=== PATIENT | female | born 1955 | race Hispanic/Latino ===

== ENCOUNTER 2018-03-05 15:10 | Observation (INO) | payer OTHER ==
[~2018-03-05] VITALS: Ht 167.6 cm; Wt 87.1 kg
[2018-03-05] MEDS ORDERED: ACETAMINOPHEN 325 MG TAB PO PRN (17:30)
[2018-03-05] MEDS ORDERED: NITROGLYCERIN 0.4 MG SUBL SL PRN (17:30)
[2018-03-05 17:38] VITALS: BP 140/64
[2018-03-05] MEDS ORDERED: CLOPIDOGREL BISULFATE 75 MG TAB PO ONE (18:00)
[2018-03-05 18:05] VITALS: BP 140/64
[2018-03-05 18:11] LABS: BASOPHILS % 0.4 % (0.0-1.0); EOSINOPHILS # (AUTO) 0.2 (0.0-0.4); EOSINOPHILS % 2.4 % (0.0-6.0); HEMATOCRIT 41.3 % (34.2-44.1); HEMOGLOBIN 14.1 g/dL (12.0-16.0); LYMPHOCYTES # (AUTO) 3.8 (1.0-3.2); LYMPHOCYTES % 39.5 % (18.0-39.1); MEAN CORPUSCULAR HEMOGLOBIN 30.9 pg (28-32); MEAN CORPUSCULAR HGB CONC 34.1 g/dL (31-35); MEAN CORPUSCULAR VOLUME 90.4 fL (81-99); MONOCYTES # (AUTO) 0.7 (0.2-0.8); MONOCYTES % 7.4 % (4.4-11.3); NEUTROPHILS # (AUTO) 4.8 (2.1-6.9); NEUTROPHILS % 50.1 % (38.7-80.0); PLATELET COUNT 205 x10e3/uL (140-360); RED BLOOD COUNT 4.57 x10e6/uL (3.6-5.1); RED CELL DISTRIBUTION WIDTH 13.4 % (11.7-14.4)
[2018-03-05 18:48] LABS: CREATINE KINASE MB 1.6 ng/mL (0-5.0)
--- NOTE | 2018-03-05 18:55 | Diagnostic Imaging Report ---
EXAMINATION: CHEST 2 VIEWS INDICATION: \S\chest pain \[id number] \S\1830 \S\N COMPARISON: None FINDINGS: PA and lateral views TUBES and LINES: None. LUNGS: Lungs are well inflated. Lungs are clear. There is no evidence of pneumonia or pulmonary edema. PLEURA: No pleural effusion or pneumothorax. HEART AND MEDIASTINUM: The cardiomediastinal silhouette is unremarkable. BONES AND SOFT TISSUES: No acute osseous lesion. Soft tissues are unremarkable. UPPER ABDOMEN: No free air under the diaphragm. IMPRESSION: No acute thoracic abnormality. Signed by: Dr. Marjorie Gonzalez M.D. on 03/05/2018 6:52 PM
[2018-03-05 19:00] VITALS: BP 140/64
[2018-03-05 19:03] LABS: ALANINE AMINOTRANSFERASE 84 IU/L (0-55); ALBUMIN 3.5 g/dL (3.5-5.0); ALBUMIN/GLOBULIN RATIO 0.8 (0.8-2.0); ALKALINE PHOSPHATASE 128 IU/L (40-150); ANION GAP 14.1 mmol/L (8-16); BLOOD UREA NITROGEN 18 mg/dL (7-26); BUN/CREATININE RATIO 22 (6-25); CALCIUM 9.5 mg/dL (8.4-10.2); CARBON DIOXIDE 27 mmol/L (22-29); CHLORIDE 104 mmol/L (98-107); CHOL/HDL RATIO 3.6 (3.0-3.6); CHOLESTEROL 195 MD/DL (0-199); CREATININE, SERUM 0.82 mg/dL (0.57-1.11); EST GLOMERULAR FILTRATION RATE > 60 ML/MIN (60-); GLUCOSE 111 mg/dL (74-118); HDL CHOLESTEROL 54 MG/DL (40-60); LDL CHOLESTEROL 107 MG/DL (60-130); POTASSIUM 4.1 mmol/L (3.5-5.1); SODIUM 141 mmol/L (136-145); TRIGLYCERIDES 170 MG/DL (0-149)
[2018-03-05] MEDS ORDERED: LORAZEPAM 0.5 MG TAB PO PRN (19:30)
[2018-03-05] MEDS ORDERED: LORAZEPAM 1 MG TAB PO PRN (19:45)
--- NOTE | 2018-03-05 20:25 | Consultation ---
DATE OF CONSULTATION: March 05, 2018 CARDIAC CONSULTATION REASON FOR CONSULTATION: Unstable coronary syndrome, possible recent myocardial infarction. HISTORY: This is a 62-year-old lady who was in her usual status of health; but for the last 2 months, she is having typical exertional angina, progressively worse. Her activities are limited. Ten days ago, she had severe episodes of severe chest pain radiating to her back, to her shoulder, to her jaw. She took some medication, but she did not seek medical advice. She did well for a couple of days and then 7 days ago she had another severe chest pain. Regardless, today she had more pain and she came to Dr. Garcia's office, seen in his office. Her EKG showed anteroseptal myocardial infarction and ischemic lateral T-wave changes. She was admitted to the hospital. Urgent cardiac consultation is obtained. Patient was seen and evaluated in the hospital around 6 p.m. Her time of admission was just recently. Her labs still not ready. Her EKG from Dr. Garcia's office is noted. Now she is pain free. She describes this pain which is progressively worse, has been coming at rest and becoming more frequent. REVIEW OF SYSTEMS GENERAL: No fever. No chills. PULMONARY: No cough. No hemoptysis. CARDIAC: As per acute illness. GI: No hematemesis. No melena. : No hematuria. No dysuria. NEUROMUSCULAR: No headaches. No seizures. SOCIAL HISTORY: Patient is . 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 She is nonsmoker, non-alcohol drinker. PAST MEDICAL HISTORY 1. Hysterectomy. 2. Cholecystectomy. 3. Bladder suspension surgery. 4. Occasional heartburn. FAMILY HISTORY: Father at age 74 with lung cancer. Mother doing well in her 80s. Six siblings, 2 brothers and 4 sisters. She lost her brother to acute myocardial infarction at age 40. Her son is healthy at 36. Three grandchildren. PHYSICAL EXAMINATION GENERAL: A well built lady, in no acute distress. VITALS: Blood pressure 120/80, pulses were equal in all arm, heart rate of 70, respiratory rate of 18. HEENT: Pupils are equal, reactive. NECK: No elevation of jugular venous pulsation. No bruit. CHEST: Clear to auscultation and percussion. HEART: PMI 5th left intercostal space. Normal 1st and 2nd heart sounds. ABDOMEN: Soft with good bowel sounds. No organomegaly. No abdominal bruits. EXTREMITIES: No cyanosis. No clubbing. No edema. No delay between pulses. No signs of deep venous thrombosis. Other findings are varicose veins. LABORATORY DATA: Only available is her EKG from Dr. Garcia's office showing normal sinus rhythm, anteroseptal myocardial infarction, and lateral ST-T changes. HOME MEDICATIONS: None. ALLERGIES: NONE. IMPRESSION AND PLAN 1. Unstable coronary syndrome, possible recent myocardial infarction with post myocardial infarction angina. 2. Abnormal electrocardiogram. 3. History of hypercholesterolemia, questionable details. 4. Positive family history of coronary artery disease with brother dying at age 40 with myocardial infarction. 5. Varicose vein with no signs of deep venous thrombosis, symptomatic. Patient by standing upon her feet, she will have quite a lot of swelling and pain and aches, etc. We discussed option of cardiac workup. Patient will be loaded with Plavix. We discussed option between nuclear stress test and cardiac catheterization. Of course, nuclear stress test will be done only if her cardiac enzymes came back normal. 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 She wants to proceed with a definite answer because of her symptoms which is unusual and she seek medical advice and she believes she wants to be 100% sure she does not have significant severe CAD. Would respect that. Will schedule patient for cardiac catheterization. Questions all answered. Job#: [id number]
[2018-03-05 20:30] VITALS: BP 168/82
[2018-03-05] MEDS: SODIUM CHLORIDE 0.9% 1000ML 1,000 ML IV SCH (20:58)
[2018-03-05] MEDS ORDERED: ATORVASTATIN 20 MG TAB PO SCH (21:00)
[2018-03-05] MEDS ORDERED: METOPROLOL SUCCINATE 25 MG TAB XL PO SCH (21:00)
[2018-03-06] VITALS: BP 147/63
[2018-03-06 05:05] VITALS: BP 131/72
[2018-03-06 05:11] LABS: BASOPHILS % 0.4 % (0.0-1.0); EOSINOPHILS # (AUTO) 0.2 (0.0-0.4); EOSINOPHILS % 2.4 % (0.0-6.0); HEMATOCRIT 38.5 % (34.2-44.1); LYMPHOCYTES # (AUTO) 2.6 (1.0-3.2); LYMPHOCYTES % 35.8 % (18.0-39.1); MEAN CORPUSCULAR HEMOGLOBIN 30.5 pg (28-32); MEAN CORPUSCULAR HGB CONC 33.8 g/dL (31-35); MEAN CORPUSCULAR VOLUME 90.4 fL (81-99); MONOCYTES # (AUTO) 0.5 (0.2-0.8); MONOCYTES % 7.5 % (4.4-11.3); NEUTROPHILS # (AUTO) 3.9 (2.1-6.9); NEUTROPHILS % 53.8 % (38.7-80.0); PLATELET COUNT 182 x10e3/uL (140-360); RED BLOOD COUNT 4.26 x10e6/uL (3.6-5.1); RED CELL DISTRIBUTION WIDTH 13.3 % (11.7-14.4)
[2018-03-06 05:21] LABS: INR 1.17
[2018-03-06 05:22] LABS: PARTIAL THROMBOPLASTIN TIME 27.9 seconds (23.8-35.5)
[2018-03-06 05:29] LABS: ALANINE AMINOTRANSFERASE 71 IU/L (0-55); ALBUMIN 3.2 g/dL (3.5-5.0); ALBUMIN/GLOBULIN RATIO 0.8 (0.8-2.0); ALKALINE PHOSPHATASE 117 IU/L (40-150); ANION GAP 12.1 mmol/L (8-16); BLOOD UREA NITROGEN 20 mg/dL (7-26); BUN/CREATININE RATIO 30 (6-25); CALCIUM 8.7 mg/dL (8.4-10.2); CARBON DIOXIDE 23 mmol/L (22-29); CHLORIDE 110 mmol/L (98-107); CREATININE, SERUM 0.67 mg/dL (0.57-1.11); EST GLOMERULAR FILTRATION RATE > 60 ML/MIN (60-); GLUCOSE 111 mg/dL (74-118); POTASSIUM 4.1 mmol/L (3.5-5.1); SODIUM 141 mmol/L (136-145)
[2018-03-06 05:59] LABS: CREATINE KINASE MB 1.7 ng/mL (0-5.0)
[2018-03-06] MEDS ORDERED: HEPARIN SOD/SOD CHLORIDE 2,000 ML ONE (06:40)
[2018-03-06] MEDS ORDERED: SODIUM CHLORIDE 0.9% 1000ML 1,000 ML ONE (06:40)
[2018-03-06] MEDS ORDERED: MIDAZOLAM HCL 2 MG/2 ML VIAL ONE (06:40)
[2018-03-06] MEDS ORDERED: LIDOCAINE HCL 2% LOCAL 20 ML VIAL ONE (06:40)
[2018-03-06] MEDS ORDERED: IOPAMIDOL 370 MG/ML 200 ML INFUS..BTL INJ ONE (06:40)
[2018-03-06] MEDS ORDERED: FENTANYL CITRATE/PF 100MCG/2 ML INJ ONE (06:40)
[2018-03-06 07:05] VITALS: BP 131/72
[2018-03-06] MEDS ORDERED: HEPARIN SOD (PORCINE) 1000 UNIT/ML 30ML ONE (07:44)
[2018-03-06] MEDS ORDERED: NITROGLYCERIN/D5W 200 MCG/ML 0 ML ONE (07:45)
[2018-03-06 07:49] VITALS: BP 135/80
[2018-03-06] MEDS ORDERED: METOPROLOL SUCCINATE 25 MG TAB XL PO SCH (09:00)
[2018-03-06] MEDS ORDERED: ASPIRIN 81 MG CHEW TAB PO SCH (09:00)
--- NOTE | 2018-03-06 09:05 | Operative Report ---
DATE OF PROCEDURE: March 06, 2018 TITLE OF PROCEDURE: Left cardiac catheterization. INDICATIONS: Unstable coronary syndrome. Continuous chest pain and severe shortness of breath of recent duration for the last 2 months with several episodes of severe pain. TECHNICAL DETAILS: After the usual sterile preparation and draping procedure, intravenous Versed and fentanyl given for sedation and local Xylocaine for anesthesia, a 4-Icelandic sheath was established in place. Abiodun left 4 and 3DRC catheters to engage the coronary. Pigtail for hemodynamic measurement. At the end of the procedure, the sheath was removed. Hemostasis achieved manually. No complication and no blood loss. RESULTS A. Coronary angiogram. 1. Left main: Free of disease. 2. LAD: Torturous artery. At mid LAD, the artery is dipping in the muscle, and there is muscle bridge with 50% to 60% stenosis with systole. 3. Circumflex coronary artery: Relatively small artery. 4. 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 B. Hemodynamics: The LV pressure with the catheter at the apex is 167/40. In the LV outflow, it is 150/26. Aorta pressure 150/80. IMPRESSION 1. 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 2. Severe apical hypertrophy with gradient of approximately 12 to 15 mmHg. 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 RECOMMENDATIONS: Aggressive medical therapy with beta joseph as the patient tolerates in addition to aspirin. COMPLICATIONS: None. BLOOD LOSS: None. Job#: [id number]
[2018-03-06 12:33] VITALS: BP 171/86
[2018-03-06] MEDS: SODIUM CHLORIDE 0.9% 1000ML 1,000 ML IV SCH (13:49)
[2018-03-06 15:30] LABS: CREATINE KINASE MB 1.8 ng/mL (0-5.0)
[2018-03-06 15:55] VITALS: BP 153/80
[2018-03-06] MEDS ORDERED: ASPIR 8181 MG (18:33)
[2018-03-06] MEDS ORDERED: NORVASC5 MG PO (18:33)
[2018-03-06] MEDS ORDERED: METOPROLOL SUCC50 MG PO (18:34)
== END 2018-03-06 18:56 | disposition home or self-care (01) ==
LOC: IMCU 17:00
PROVIDERS: ADMIT Internal Medicine; ATTEND Internal Medicine
DX: I25.110 Atherosclerotic heart disease of native coronary artery with unstable angina pectoris (principal); Q24.5 Malformation of coronary vessels; I34.0 Nonrheumatic mitral (valve) insufficiency; E78.00 Pure hypercholesterolemia, unspecified; I83.90 Asymptomatic varicose veins of unspecified lower extremity; Z82.49 Family history of ischemic heart disease and other diseases of the circulatory system; Z80.1 Family history of malignant neoplasm of trachea, bronchus and lung
CPT/HCPCS: 36415 ×2; 71046; 80053 ×2; 80061; 82550 ×2; 82553 ×2; 84484 ×2; 85025 ×2; 85610; 85730; 93005; 93306; 93458; 93925; 96360; C1766; G0378 ×2; J2001; J2250; J7030 ×2; Q9967; J1644

== ENCOUNTER → 2018-04-09 | Outpatient (CLI) | payer OTHER ==
[~2018-04-09] MED LIST: ASPIR 8181 MG; METOPROLOL SUCC50 MG PO; NORVASC5 MG PO
--- NOTE | 2018-04-26 23:56 | Polysomnography ---
DATE OF STUDY: April 09, 2018 DIAGNOSTIC POLYSOMNOGRAM - TYPE 3 PORTABLE SLEEP MONITOR, HOME SLEEP TEST REFERRING PHYSICIAN: Dr. Bradley Garcia HISTORY: This is a 62-year-old female with excessive sleepiness, snoring, and insomnia. Patient has a past medical history of thyroid disorder, hypertension, mild coronary artery disease. CURRENT MEDICATIONS: Metoprolol, levothyroxine, amlodipine, aspirin. Patient with body mass index of 31.6. Kake Sleepiness Scale score is 17. Patient presents for a diagnostic polysomnogram, type 3 home sleep test. FINDINGS: Polysomnogram revealed total sleep time of 540.5 minutes with sleep efficiency of 95%. A total of 3 obstructive apneas, 16 hypopneas were noted for an apnea-hypopnea index of 2.1 events per hour of sleep. The lowest oxygen saturation was 86% on this night. Single-lead EKG analysis demonstrated sinus rhythm, but was otherwise unremarkable. INTERPRETATION: This was an abnormal polysomnogram due to the presence of: 1. Snoring. Multiple factors such as obesity, thyroid disease, and structural/obstructive abnormalities in the upper airway can be contributory. An evaluation and management of these factors may be helpful. Based on this study, the patient does not require CPAP therapy. An ENT examination may be helpful if snoring persists and creates significant lifestyle difficulties to the patient or significant other. 2. Subjective sleepiness. The patient retained an Kake Sleepiness Scale score of 17, which suggests significant sleepiness. However, this home sleep test did not reveal any significant apnea nor hypopnea. Sleep deprivation or inadequate sleep can also lead to hypersomnolence. Sleep hygiene should be optimized. If there is ongoing concern regarding a hypersomnia such as narcolepsy, then a overnight in-lab sleep study, followed by multiple sleep latency testing may be helpful. Clinical correlation is recommended. MD JR Juan Certified in Sleep Medicine Job#: [id number] DR NG
== END ==
LOC: SLEEP 19:56
PROVIDERS: ATTEND Internal Medicine
DX: G47.30 Sleep apnea, unspecified (principal)
CPT/HCPCS: 95806

== ENCOUNTER 2019-11-19 14:42 | Emergency (ER) | payer OTHER ==
[~2019-11-19] VITALS: Ht 167.6 cm; Wt 87.1 kg
--- OUTSIDE RECORDS SUMMARY | 2019-11-19 14:45 | XMS REPORT | Clinical Summary ---
Author Author [facility] Address Unknown Phone Unavailable Care Team Providers Care Director Ambulatory Name Role Phone Bradley Garcia MD PCP [phone] Allergies Not on File Medications Not on file Active Problems Not on file Social History Date Tobacco Use Types Packs/Day Years Used Never Assessed Sex Assigned at Date Recorded Not on file Industry Job Start Date Occupation Not on file Not on file Not on file Travel End Travel History Travel Start No recent travel history available. 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
--- OUTSIDE RECORDS SUMMARY | 2019-11-19 14:46 | XMS REPORT ---
Author Author [facility] t Organization [facility] Address [address] [place] [address] Phone Unavailable Care Team Providers Care Gold Leaf Printer Name Role Phone RAJ MENDEZ MD PCP RAJ MENDEZ Attjovanni Unavailable RAJ MENDEZ Admjovanni Unavailable Problems This patient has no known problems. Allergies, Adverse Reactions, Alerts This patient has no known allergies or adverse reactions. Social History Social Habit Start Date Stop Date Quantity Comments Source Sex Assigned At [place] Medications Ordered Medication Name Filled Medication Name Start Date Stop Da te Current Medication? Ordering Clinician Indication Dosage Frequency Signature (SIG) Comments Components Source Amlodipine Besylate (Norvasc) 5 Mg Tab Amlodipine Besylate (Norv asc) 5 Mg Tab Yes 5 Daily [facility] Aspirin (Aspir 81) 81 Mg Tablet. Aspirin (Aspir 81) 81 Mg Tablet.dr Tracy [facility] Metoprolol Succinate 50 Mg Tab.er.24h Metoprolol Succinate 50 Mg Ta b.er.24h Yes 50 Daily [facility] Procedures Procedure Date / Time Performed Performing Clinician Formerly [facility] e X-ray of chest, two views 2018-03-05 00:00:00 RAJ MENDEZ CH I [facility] Plan of Care Planned Activity Planned Date Details Comments Source Future Scheduled Test 2020-01-22 00:00:00 INFLUENZA VACCINE [code = INFLUENZA VACCINE] [facility] Scheduled Test 2006 00:00:00 BREAST CANCER SCRE ENING [code = BREAST CANCER SCREENING] [facility] Scheduled Test 2006 00:00:00 COLONOSCOPY SCREEN ING [code = COLONOSCOPY SCREENING] [facility] Scheduled Test 2006 00:00:00 SHINGLES VACCINES (#1) [code = SHINGLES VACCINES (#1)] Johny Wu Scheduled Test 1977 00:00:00 Screening for catarina gnant neoplasm of cervix (procedure) [code = 125743197] Johny rivas Encounters Start Date/Time End Date/Time Encounter Type Admission Type [facility] Care Department Encounter ID Source 2018-03-05 17:00:00 2018-03-06 18:56:00 Discharged Inpatient (obs) 3 RAJ MENDEZ [facility] [id number] [facility] Results Test Description Test Time Test Comments Results Result Comments Source Creatine Kinase MB 2018-03-06 15:32:00 Test Item Creatine Kinase MB (test code = 71731-8) 1.80 0-5.0 [facility] CenterTroponin [id number] 15:32:00* Test Item Value Reference Range Interpretation Comments Troponin I (test code = GDC2601) 0.011 0-0.300 [facility] CenterCreatine Mnervi1600-39-27 15:29:00* Test Item Value Reference Range Interpretation Comments Creatine Kinase (test code = 2157-6) 52 29-168 [facility] CenterWhite Blood Ddkii0872-21-57 06:17:00* Test Item Value Reference Range Interpretation Comments White Blood Count (test code = 6690-2) 7.21 4.8-10.8 [facility] CenterRed Blood Aijeo9454-39-54 06:17:00* Test Item Value Reference Range Interpretation Comments Red Blood Count (test code = 789-8) 4.26 3.6-5.1 [facility] CenterHemoglobin2018-09-14 06:17:00* Test Item Value Reference Range Interpretation Comments Hemoglobin (test code = 13178-2) 13.0 12.0-16.0 [facility] CenterHematocrit2018-09-14 06:17:00* Test Item Value Reference Range Interpretation Comments Hematocrit (test code = 4544-3) 38.5 34.2-44.1 [facility] CenterMean Corpuscular Tkqxba2409-67-57 06:17:00* Test Item Value Reference Range Interpretation Comments Mean Corpuscular Volume (test code = 787-2) 90.4 81-99 [facility] CenterMean Corpuscular Pvolxvdxza1425-77-33 06:17:00* Test Item Value Reference Range Interpretation Comments Mean Corpuscular Hemoglobin (test code = 785-6) 30.5 28-32 [facility] CenterMean Corpuscular Hemoglobin Concent 2018-03-06 06:17:00* Test Item Value Reference Range Interpretation Comments Mean Corpuscular Hemoglobin Concent (test code = 786-4) 33.8 31-35 [facility] CenterRed Cell Distribution Zglex5267-35-57 06:17:00* Test Item Value Reference Range Interpretation Comments Red Cell Distribution Width (test code = 44714-3) 13.3 11.7 -14.4 [facility] CenterPlatelet Omjff5735-14-92 06:17:00* Test Item Value Reference Range Interpretation Comments Platelet Count (test code = 777-3) 182 140-360 [facility] CenterNeutrophils (%) (Auto)2018-03-06 06:17:00 * Test Item Value Reference Range Interpretation Comments Neutrophils (%) (Auto) (test code = 70599-5) 53.8 38.7-80.0 [facility] CenterLymphocytes (%) (Auto)2018-03-06 06:17:00 * Test Item Value Reference Range Interpretation Comments Lymphocytes (%) (Auto) (test code = 736-9) 35.8 18.0-39.1 [facility] CenterMonocytes (%) (Auto)2018-03-06 06:17:00* Test Item Value Reference Range Interpretation Comments Monocytes (%) (Auto) (test code = 5905-5) 7.5 4.4-11.3 [facility] CenterEosinophils (%) (Auto)2018-03-06 06:17:00 * Test Item Value Reference Range Interpretation Comments Eosinophils (%) (Auto) (test code = 713-8) 2.4 0.0-6.0 [facility] CenterBasophils (%) (Auto)2018-03-06 06:17:00* Test Item Value Reference Range Interpretation Comments Basophils (%) (Auto) (test code = 706-2) 0.4 0.0-1.0 [facility] CenterIM GRANULOCYTES %2018-03-06 06:17:00* Test Item Value Reference Range Interpretation Comments IM GRANULOCYTES % (test code = IM GRANULOCYTES %) 0.1 0.0- 1.0 [facility] CenterNeutrophils # (Auto)2018-03-06 06:17:00* Test Item Value Reference Range Interpretation Comments Neutrophils # (Auto) (test code = 751-8) 3.9 2.1-6.9 [facility] CenterLymphocytes # (Auto)2018-03-06 06:17:00* Test Item Value Reference Range Interpretation Comments Lymphocytes # (Auto) (test code = 00346-0) 2.6 1.0-3.2 [facility] CenterMonocytes # (Auto)2018-03-06 06:17:00* Test Item Value Reference Range Interpretation Comments Monocytes # (Auto) (test code = 742-7) 0.5 0.2-0.8 [facility] CenterEosinophils # (Auto)2018-03-06 06:17:00* Test Item Value Reference Range Interpretation Comments Eosinophils # (Auto) (test code = 711-2) 0.2 0.0-0.4 [facility] CenterBasophils # (Auto)2018-03-06 06:17:00* Test Item Value Reference Range Interpretation Comments Basophils # (Auto) (test code = 704-7) 0.0 0.0-0.1 [facility] CenterAbsolute Immature Granulocyte (auto 2018-03-06 06:17:00* Test Item Value Reference Range Interpretation Comments Absolute Immature Granulocyte (auto (sapna t code = Absolute Immature Granulocyte (auto) 0.01 0-0.1 [facility] CenterProthrombin Tfoc6261-39-74 05:57:00* Test Item Value Reference Range Interpretation Comments Prothrombin Time (test code = 5902-2) 14.0 11.9-14.5 [facility] CenterProthromb Time International Ratio 2018-03-06 05:57:00* Test Item Value Reference Range Interpretation Comments Prothromb Time International Ratio (test code = 6301-6) 1.17 Oral Anticoagulant Therapy INR Values:1. Low Intensity Therapy 1.5 - 2.02 . Moderate Intensity Therapy 2.0 - 3.03. High Intensity Therapy(1) 2.5 - 3. 54. High Intensity Therapy(2) 3.0 - 4.05. Panic Value INR > 5.0 [facility] CenterActivated Partial Thromboplast Time 2018-03-06 05:57:00* Test Item Value Reference Range Interpretation Comments Activated Partial Thromboplast Time (test code = 54816-4) 27.9 23.8-35.5 [facility]odium Voyco8562-15-93 05:39:00* Test Item Value Reference Range Interpretation Comments Sodium Level (test code = 2951-2) 141 136-145 [facility] CenterPotassium Yarvd9923-34-83 05:39:00* Test Item Value Reference Range Interpretation Comments Potassium Level (test code = 2823-3) 4.1 3.5-5.1 [facility] CenterChloride Fhicv1026-87-46 05:39:00* Test Item Value Reference Range Interpretation Comments Chloride Level (test code = 2075-0) 110 98-107 H [facility] CenterCarbon Dioxide Nqfaj2398-11-72 05:39:00* Test Item Value Reference Range Interpretation Comments Carbon Dioxide Level (test code = 2028-9) 23 22-29 [facility] CenterAnion Ihy7898-37-38 05:39:00* Test Item Value Reference Range Interpretation Comments Anion Gap (test code = 31205-7) 12.1 8-16 [facility] CenterBlood Urea Fjrolejw0727-53-52 05:39:00* Test Item Value Reference Range Interpretation Comments Blood Urea Nitrogen (test code = 3094-0) 20 7-26 [facility] CenterCreatinine2018-09-14 05:39:00* Test Item Value Reference Range Interpretation Comments Creatinine (test code = 2160-0) 0.67 0.57-1.11 [facility] CenterBUN/Creatinine Bxnzx5621-61-11 05:39:00* Test Item Value Reference Range Interpretation Comments BUN/Creatinine Ratio (test code = 3097-3) 30 6-25 H [facility] CenterEstimat Glomerular Filtration Rate 2018-03-06 05:39:00* Test Item Value Reference Range Interpretation Comments Estimat Glomerular Filtration Rate (test code = 43081-7) 60- >60 Ranges were taken from the National Kidney Disease Education Program and the [facility] Kid[employer] Foundation literature.Reference ranges:60 or greater: Tacpfx97-25 ( for 3 consecutive months): Chronic kidney disease 15 or less: Kidney failureThe Hospital at Westlake Medical CenterGlucose Wsqgx3552-43-04 05:39:00* Test Item Value Reference Range Interpretation Comments Glucose Level (test code = JVZ6478) 111 74-118 [facility] CenterCalcium Ycucp9551-92-20 05:39:00* Test Item Value Reference Range Interpretation Comments Calcium Level (test code = 00145-0) 8.7 8.4-10.2 [facility] CenterTotal Ykqijuyzu6092-21-63 05:39:00* Test Item Value Reference Range Interpretation Comments Total Bilirubin (test code = 1975-2) 0.3 0.2-1.2 [facility] CenterAspartate Amino Transf (AST/SGOT) 2018-03-06 05:39:00* Test Item Value Reference Range Interpretation Comments Aspartate Amino Transf (AST/SGOT) (test code = Aspartate Amino Transf (AST/SGOT)) 43 5-34 H [facility] CenterAlanine Aminotransferase (ALT/SGPT) 2018-03-06 05:39:00* Test Item Value Reference Range Interpretation Comments Alanine Aminotransferase (ALT/SGPT) (test code = 1742-6) 71 0-55 H [facility] CenterTotal Xzahycj6829-83-66 05:39:00* Test Item Value Reference Range Interpretation Comments Total Protein (test code = 2885-2) 7.0 6.5-8.1 [facility] CenterAlbumin2018-09-14 05:39:00* Test Item Value Reference Range Interpretation Comments Albumin (test code = 1751-7) 3.2 3.5-5.0 L [facility] CenterGlobulin2018-09-14 05:39:00* Test Item Value Reference Range Interpretation Comments Globulin (test code = 66548-1) 3.8 2.3-3.5 H [facility] CenterAlbumin/Globulin Ggqbe8686-81-04 05:39:00 * Test Item Value Reference Range Interpretation Comments Albumin/Globulin Ratio (test code = 1759-0) 0.8 0.8-2.0 [facility] CenterAlkaline Pisipdctzwf4908-07-55 05:39:00* Test Item Value Reference Range Interpretation Comments Alkaline Phosphatase (test code = 6768-6) 117 40-150 [facility] CenterTriglycerides Ingla9227-10-06 19:07:00* Test Item Value Reference Range Interpretation Comments Triglycerides Level (test code = 2571-8) 170 0-149 H [facility] CenterCholesterol Azhbu6409-47-06 19:07:00* Test Item Value Reference Range Interpretation Comments Cholesterol Level (test code = 2093-3) 195 0-199 Less than 200 mg/dL Low Bzey654 - 239 mg/dL Borderline Naya252 m g/dl and greater High Risk [facility] CenterLDL Kjagvcztvce7455-69-27 19:07:00* Test Item Value Reference Range Interpretation Comments LDL Cholesterol (test code = 2089-1) 107 60-130 [facility] CenterHDL Puftdeqddhz0545-93-89 19:07:00* Test Item Value Reference Range Interpretation Comments HDL Cholesterol (test code = 2085-9) 54 40-60 [facility] CenterCholesterol/HDL Mzpef2266-31-32 19:07:00 * Test Item Value Reference Range Interpretation Comments Cholesterol/HDL Ratio (test code = 9830-1) 3.6 3.0-3.6 [facility] CenterCHEST 2 DIXED5379-71-22 18:52:00 [facility] [address] [address] Patient Name: NEVAEH ARENAS MR #: [id number] : 0 1955 Age/Sex: 62/F Req #: [id number] Adm Physician: RAJ MENDEZ MD Ordered by: RAJ MENDEZ MD Report #: [id number] Locatio n: IMCU Room/Bed: [place] [address] Procedure: [id number] DX/ CHEST 2 VIEWS Exam Date: 03/05/18 Exam Time: 183 REPORT STATUS: Signed EXAMINATION: CHEST 2 VIEWS INDICATION: COMPARISON: None FINDINGS: PA and lateral views TUBES and LINES: None. LUNGS: Lungs are well inflated. Lungs are c lear. There is no evidence of pneumonia or pulmonary edema. PLEURA: No pleural effusion or pneumothorax. HEART AND MEDIASTINUM: The cardiomedias tinal silhouette is unremarkable. BONES AND SOFT TISSUES: No acute osseous lesion. Soft tissues are unremarkable. UPPER ABDOMEN: No free air under the diaphragm. IMPRESSION: No acute thoracic abnormality. Sign ed by: Dr. Katie Aragon M.D. on 03/05/2018 6:52 PM Dictated By : KATIE ARAGON MD 51 Transcribed By: HOWIE on 03/05/181851 COPY TO: RAJ CERNA MD
[2019-11-19] MEDS ORDERED: ONDANSETRON HCL INJ 2MG/ML 2ML 2 MG/ML VIAL IV STA (15:55)
[2019-11-19] MEDS ORDERED: PANTOPRAZOLE 40 MG 10ML VIAL IV STA (15:55)
[2019-11-19] MEDS ORDERED: SODIUM CHLORIDE 0.9% 1000ML 1,000 ML IV STA (15:55)
--- NOTE | 2019-11-19 16:07 | Emergency Department Note ---
History of Present Illnes History of Present Illness Chief Complaint: Abdominal Complaints History of Present Illness This is a 64 year old female HERE FOR LEFT SIDED ABDOMINAL PAIN AND N/V/D FOR THE LAST 3 DAYS. 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 Historian: Patient Arrival Mode: Car Onset (how long ago): day(s) (3) Location: LEFT SIDE Quality: PAIN Radiation: non-radiation Severity: moderate Onset quality: gradual Duration (how long): day(s) (3) Timing of current episode: intermittent (WORSE AFTER EATING OR DRINKING ANYTHING) Progression: waxing and waning Chronicity: new Context: recent illness Relieving factors: none Exacerbating factors: other (EATING OR DRINKING) Associated symptoms: denies other symptoms Treatments prior to arrival: none Previous service: other (CALLED PCP, DR MENDEZ WHO ADVISED TO COME TO ER) Past Medical/Family History Physician Review I have reviewed the patient's past medical and family history. Any updates have been documented here. Past Medical History Recent Fever: No Clinical Suspicion of Infectio: Yes New/Unexplained Change in Ment: No Past Medical History: Hypertension, Anxiety, Depression, GERD Past Surgical History: Cholecysctectomy, Hysterectomy Other Surgery: BLADDER SUSPENSION Social History Smoking Cessation: Never Smoker Counseling Performed: No Alcohol Use: Social Any Illegal Drug Use: No TB Exposure/Symptoms: No Physically hurt or threatened: No Family History Family history of heart diseas: No Other Any Pre-Existing Lines (PICC,: No Review of Systems Review of Systems Constitutional: no symptoms EENTM: no symptoms Cardiovascular: no symptoms Respiratory: no symptoms Gastrointestinal: as per HPI, abdominal pain, diarrhea, nausea, vomiting Genitourinary: no symptoms Musculoskeletal: no symptoms Neurological: no symptoms Psychological: no symptoms Endocrine: no symptoms Hematological/Lymphatic: no symptoms Review of other systems All other systems reviewed and negative. Physical Exam Related Data Allergies: Coded Allergies: No Known Allergies (Unverified , 03/05/18) Triage Vital Signs Vital Signs Date Time Temp Pulse Resp B/P (MAP) Pulse Ox O2 Delivery O2 Flow Rate FiO2 11/19/19 15:54 97.8 61 16 146/86 98 Vital signs reviewed: Yes Physical Exam CONSTITUTIONAL Constitutional: well-developed, well-nourished HENT HENT: normocephalic, atraumatic, oropharynx clear/moist, nose normal HENT L/R: left ext ear normal, right ext ear normal EYES Eyes: PERRL, conjunctivae normal NECK Neck: ROM normal PULMONARY Pulmonary: effort normal, breath sounds normal CARDIOVASCULAR Cardiovascular: regular rhythm, heart sounds normal, capillary refill normal, normal rate GASTROINTESTINAL Abdominal: soft, bowel sounds normal, tender (MILD LUQ WITHOUT R/G); guarding, mass, rebound GENITOURINARY Genitourinary: exam deferred SKIN Skin: warm, dry MUSCULOSKELETAL Musculoskeletal: ROM normal NEUROLOGICAL Neurological: alert, oriented x 3, no gross motor or sensory deficits PSYCHOLOGICAL Psychological: mood/affect normal, judgement normal Results Laboratory Laboratory Laboratory Tests Test 11/19/19 16:00 White Blood Count 9.19 x10e3/uL (4.8-10.8) Red Blood Count 4.43 x10e6/uL (3.6-5.1) Hemoglobin 13.4 g/dL (12.0-16.0) Hematocrit 40.2 % (34.2-44.1) Mean Corpuscular Volume 90.7 fL (81-99) Mean Corpuscular Hemoglobin 30.2 pg (28-32) Mean Corpuscular Hemoglobin Concent 33.3 g/dL (31-35) Red Cell Distribution Width 13.6 % (11.7-14.4) Platelet Count 213 x10e3/uL (140-360) Neutrophils (%) (Auto) 48.9 % (38.7-80.0) Lymphocytes (%) (Auto) 39.8 % (18.0-39.1) Monocytes (%) (Auto) 7.6 % (4.4-11.3) Eosinophils (%) (Auto) 2.7 % (0.0-6.0) Basophils (%) (Auto) 0.7 % (0.0-1.0) Neutrophils # (Auto) 4.5 (2.1-6.9) Lymphocytes # (Auto) 3.7 (1.0-3.2) Monocytes # (Auto) 0.7 (0.2-0.8) Eosinophils # (Auto) 0.3 (0.0-0.4) Basophils # (Auto) 0.1 (0.0-0.1) Absolute Immature Granulocyte (auto 0.03 x10e3/uL (0-0.1) Prothrombin Time 14.4 seconds (11.9-14.5) Prothromb Time International Ratio 1.05 Activated Partial Thromboplast Time 31.6 seconds (23.8-35.5) Sodium Level 140 mmol/L (136-145) Potassium Level 3.8 mmol/L (3.5-5.1) Chloride Level 106 mmol/L (98-107) Carbon Dioxide Level 22 mmol/L (22-29) Anion Gap 15.8 mmol/L (8-16) Blood Urea Nitrogen 13 mg/dL (7-26) Creatinine 0.76 mg/dL (0.57-1.11) Estimat Glomerular Filtration Rate > 60 ML/MIN (60-) BUN/Creatinine Ratio 17 (6-25) Glucose Level 119 mg/dL (74-118) Calcium Level 8.8 mg/dL (8.4-10.2) Magnesium Level 1.8 MG/DL (1.3-2.1) Total Bilirubin 0.8 mg/dL (0.2-1.2) Aspartate Amino Transf (AST/SGOT) 74 IU/L (5-34) Alanine Aminotransferase (ALT/SGPT) 77 IU/L (0-55) Alkaline Phosphatase 136 IU/L (40-150) Creatine Kinase 64 IU/L (29-168) Creatine Kinase MB 1.60 ng/mL (0-5.0) Troponin I < 0.001 ng/mL (0-0.300) Total Protein 8.0 g/dL (6.5-8.1) Albumin 3.5 g/dL (3.5-5.0) Globulin 4.5 g/dL (2.3-3.5) Albumin/Globulin Ratio 0.8 (0.8-2.0) Lipase 9 U/L (8-78) Lab results reviewed: Yes Imaging Imaging results reviewed: Yes Impressions Examination: Single AP view of the chest. COMPARISON: None. INDICATION: Abdominal pain DISCUSSION: Lines/tubes: None. Lungs: The lungs are well inflated and clear. No pneumonia or pulmonary edema. Pleura: No pleural effusion or pneumothorax. Heart and mediastinum: The heart and the mediastinum are unremarkable. Bones and soft tissues: No acute bony abnormalities. IMPRESSION: 1. No acute cardiopulmonary abnormalities. Signed by: Dr. Tho Hodges M.D. on 11/19/2019 5:58 PM EXAMINATION: CT of the abdomen and pelvis with contrast. TECHNIQUE: Helical CT images of the abdomen and pelvis were performed from the lung bases to the lesser trochanters after the intravenous administration of 100 cc of Isovue 300 and the oral administration of none. Coronal and sagittal reformatted images were obtained. Dose modulation, iterative reconstruction, and/or weight based adjustment of the mA/kV was utilized to reduce the radiation dose to as low as reasonably achievable. COMPARISON: None. CLINICAL HISTORY:Abdominal pain, cramping DISCUSSION: ABDOMEN/PELVIS: LOWER THORAX:Unremarkable. HEPATOBILIARY: Simple cyst at the dome of the liver. The liver has a nodular contour with enlargement of the caudate lobe. Cholecystectomy. SPLEEN: No splenomegaly. PANCREAS: No focal masses or ductal dilatation. ADRENALS: No adrenal nodules. KIDNEYS/URETERS: Few small cysts in the left kidney. No enhancing lesion. PELVIC ORGANS/BLADDER: Bladder is unremarkable. Hysterectomy. No mass. PERITONEUM/RETROPERITONEUM: No free air or fluid. LYMPH NODES: No intra-abdominal, retroperitoneal, pelvic or inguinal lymphadenopathy. VESSELS: The celiac trunk,superior and inferior mesenteric and bilateral renal arteries are patent The portal, superior mesenteric and splenic veins are patent. GI TRACT: No obstruction. Appendix normal. BONES AND SOFT TISSUE: No bony destructive lesions. Fat-containing umbilical hernia. IMPRESSION: No acute CT finding. Cirrhotic liver morphology. Small fat-containing umbilical hernia without complication. Signed by: Dr. Tho Hodges M.D. on 11/19/2019 6:01 PM Critical Care Time Subsequent provider I assumed direction of critical care for this patient from another provider of my specialty. Assessment & Plan Assessment & Plan Final Impression: (1) VOMITING, UNSPECIFIED (2) DIARRHEA, UNSPECIFIED (3) GENERALIZED ABDOMINAL PAIN Assessment & Plan PT FEELS MUCH BETTER, DC HOME, F/U PCP FRIDAY, RTED PRN, BENTYL/ZOFRAN ODT Last Vital Signs Date Time Temp Pulse Resp B/P (MAP) Pulse Ox O2 Delivery O2 Flow Rate FiO2 11/19/19 15:54 97.8 61 16 146/86 98 Home Meds Reported Medications Metoprolol Succinate (METOPROLOL SUCCINATE) 50 Mg Tab.er.24h, 50 MG PO DAILY, MG 03/06/18 Aspirin (ASPIR 81) 81 Mg Tablet. 03/06/18 Amlodipine Besylate (NORVASC) 5 Mg Tab, 5 MG PO DAILY, #30 TAB 03/06/18 Medications in the ED Pantoprazole Sodium 40 mg ONCE STAT IV ; Start 11/19/19 at 15:55; Stop 11/19/19 at 15:56; Status UNV Ondansetron HCl 4 mg ONCE STAT IV ; Start 11/19/19 at 15:55; Stop 11/19/19 at 15:56; Status UNV Sodium Chloride 1,000 ml @ 0 mls/hr Q0M STAT IV ; Start 11/19/19 at 15:55; Stop 11/19/19 at 15:56 MARIA DOLORES KIDD MD November 19, 2019 16:07
[2019-11-19 16:33] LABS: BASOPHILS # (AUTO) 0.1 (0.0-0.1); BASOPHILS % 0.7 % (0.0-1.0); EOSINOPHILS # (AUTO) 0.3 (0.0-0.4); EOSINOPHILS % 2.7 % (0.0-6.0); HEMATOCRIT 40.2 % (34.2-44.1); HEMOGLOBIN 13.4 g/dL (12.0-16.0); LYMPHOCYTES # (AUTO) 3.7 (1.0-3.2); LYMPHOCYTES % 39.8 % (18.0-39.1); MEAN CORPUSCULAR HEMOGLOBIN 30.2 pg (28-32); MEAN CORPUSCULAR HGB CONC 33.3 g/dL (31-35); MEAN CORPUSCULAR VOLUME 90.7 fL (81-99); MONOCYTES # (AUTO) 0.7 (0.2-0.8); MONOCYTES % 7.6 % (4.4-11.3); NEUTROPHILS # (AUTO) 4.5 (2.1-6.9); NEUTROPHILS % 48.9 % (38.7-80.0); PLATELET COUNT 213 x10e3/uL (140-360); RED BLOOD COUNT 4.43 x10e6/uL (3.6-5.1); RED CELL DISTRIBUTION WIDTH 13.6 % (11.7-14.4)
[2019-11-19 16:44] LABS: INR 1.05; PARTIAL THROMBOPLASTIN TIME 31.6 seconds (23.8-35.5); PROTHROMBIN TIME 14.4 seconds (11.9-14.5)
[2019-11-19 16:58] LABS: ALANINE AMINOTRANSFERASE 77 IU/L (0-55); ALBUMIN 3.5 g/dL (3.5-5.0); ALBUMIN/GLOBULIN RATIO 0.8 (0.8-2.0); ALKALINE PHOSPHATASE 136 IU/L (40-150); ANION GAP 15.8 mmol/L (8-16); BLOOD UREA NITROGEN 13 mg/dL (7-26); BUN/CREATININE RATIO 17 (6-25); CALCIUM 8.8 mg/dL (8.4-10.2); CARBON DIOXIDE 22 mmol/L (22-29); CHLORIDE 106 mmol/L (98-107); CREATINE KINASE 64 IU/L (29-168); CREATININE, SERUM 0.76 mg/dL (0.57-1.11); EST GLOMERULAR FILTRATION RATE > 60 ML/MIN (60-); GLUCOSE 119 mg/dL (74-118); LIPASE 9 U/L (8-78); MAGNESIUM 1.8 MG/DL (1.3-2.1); POTASSIUM 3.8 mmol/L (3.5-5.1); SODIUM 140 mmol/L (136-145)
[2019-11-19] MEDS ORDERED: SODIUM CHLORIDE 0.9% 50ML 50 ML ONE (17:46)
[2019-11-19] MEDS ORDERED: IOPAMIDOL 370 MG/ML 200 ML INFUS..BTL INJ ONE (17:47)
--- NOTE | 2019-11-19 18:01 | Diagnostic Imaging Report ---
Examination: Single AP view of the chest. COMPARISON: None. INDICATION: Abdominal pain DISCUSSION: Lines/tubes: None. Lungs: The lungs are well inflated and clear. No pneumonia or pulmonary edema. Pleura: No pleural effusion or pneumothorax. Heart and mediastinum: The heart and the mediastinum are unremarkable. Bones and soft tissues: No acute bony abnormalities. IMPRESSION: 1. No acute cardiopulmonary abnormalities. Signed by: Dr. Tho Hodges M.D. on 11/19/2019 5:58 PM
--- NOTE | 2019-11-19 18:04 | Diagnostic Imaging Report ---
EXAMINATION: CT of the abdomen and pelvis with contrast. TECHNIQUE: Helical CT images of the abdomen and pelvis were performed from the lung bases to the lesser trochanters after the intravenous administration of 100 cc of Isovue 300 and the oral administration of none. Coronal and sagittal reformatted images were obtained. Dose modulation, iterative reconstruction, and/or weight based adjustment of the mA/kV was utilized to reduce the radiation dose to as low as reasonably achievable. COMPARISON: None. CLINICAL HISTORY:Abdominal pain, cramping DISCUSSION: ABDOMEN/PELVIS: LOWER THORAX:Unremarkable. HEPATOBILIARY: Simple cyst at the dome of the liver. The liver has a nodular contour with enlargement of the caudate lobe. Cholecystectomy. SPLEEN: No splenomegaly. PANCREAS: No focal masses or ductal dilatation. ADRENALS: No adrenal nodules. KIDNEYS/URETERS: Few small cysts in the left kidney. No enhancing lesion. PELVIC ORGANS/BLADDER: Bladder is unremarkable. Hysterectomy. No mass. PERITONEUM/RETROPERITONEUM: No free air or fluid. LYMPH NODES: No intra-abdominal, retroperitoneal, pelvic or inguinal lymphadenopathy. VESSELS: The celiac trunk,superior and inferior mesenteric and bilateral renal arteries are patent The portal, superior mesenteric and splenic veins are patent. GI TRACT: No obstruction. Appendix normal. BONES AND SOFT TISSUE: No bony destructive lesions. Fat-containing umbilical hernia. IMPRESSION: No acute CT finding. Cirrhotic liver morphology. Small fat-containing umbilical hernia without complication. Signed by: Dr. Tho Hodges M.D. on 11/19/2019 6:01 PM
== END 2019-11-19 19:00 | disposition home or self-care (01) ==
LOC: ER 14:42
DX: R10.84 Generalized abdominal pain (principal); R11.2 Nausea with vomiting, unspecified; R19.7 Diarrhea, unspecified; I10 Essential (primary) hypertension; K21.9 Gastro-esophageal reflux disease without esophagitis; F41.9 Anxiety disorder, unspecified
CPT/HCPCS: 36415; 71045; 74177; 80053; 82550; 82553; 83690; 83735; 84484; 85025; 85610; 85730; 87635; 99284; C9113; J2405; J7030; Q9967

== ENCOUNTER 2020-04-19 14:32 | Observation (INO) | payer OTHER ==
[~2020-04-19] VITALS: Ht 165.1 cm; Wt 94.8 kg
--- NOTE | 2020-04-19 15:25 | Emergency Department Note ---
History of Present Illnes History of Present Illness Chief Complaint: Chest Pain History of Present Illness This is a 64 year old female . Historian: Patient Arrival Mode: Car Onset (how long ago): day(s) (1) Location: chest pain Quality: dull Radiation: Reports non-radiation Severity: mild Onset quality: gradual Duration (how long): day(s) (5) Timing of current episode: intermittent Progression: waxing and waning Chronicity: new Context: Denies recent illness, Denies recent surgery, Denies recent immobilization, Denies recent travel, Denies trauma/injury, Denies new medications, Denies hx of DVT/PE, Denies non-compliance w/ medications, Denies other Relieving factors: none Exacerbating factors: none Associated symptoms: Reports denies other symptoms; Denies confusion, Denies chest pain, Denies cough, Denies diaphoresis, Denies fever/chills, Denies headaches, Denies loss of appetite, Denies malaise, Denies nausea/vomiting, Denies rash, Denies seizure, Denies shortness of breath, Denies syncope, Denies weakness, Denies other Treatments prior to arrival: none Past Medical/Family History Physician Review I have reviewed the patient's past medical and family history. Any updates have been documented here. Past Medical History Recent Fever: No Clinical Suspicion of Infectio: No New/Unexplained Change in Ment: No Past Medical History: Hypertension, Anxiety, Depression, GERD Other Medical History: [place] BRIDGE HEART DEFECT Past Surgical History: Cholecysctectomy, Hysterectomy Other Surgery: BLADDER SUSPENSION Social History Smoking Cessation: Never Smoker Alcohol Use: Occasional Any Illegal Drug Use: No Other Any Pre-Existing Lines (PICC,: No Review of Systems Review of Systems Constitutional: Reports no symptoms EENTM: Reports no symptoms Cardiovascular: Reports no symptoms Respiratory: Reports no symptoms Gastrointestinal: Reports no symptoms; Denies as per HPI, Denies abdominal pain, Denies constipation, Denies diarrhea, Denies nausea, Denies vomiting, Denies other Genitourinary: Reports no symptoms; Denies as per HPI, Denies discharge, Denies dysuria, Denies frequency, Denies hematuria, Denies pain, Denies other Musculoskeletal: Reports no symptoms; Denies as per HPI, Denies back pain, Denies gout, Denies joint pain, Denies joint swelling, Denies muscle pain, Denies muscle stiffness, Denies neck pain, Denies other Integumentary: Reports no symptoms; Denies as per HPI, Denies change in color, Denies change in hair/nails, Denies dryness, Denies lesions, Denies lumps, Denies rash, Denies poor turgor, Denies ecchymosis, Denies other Neurological: Reports no symptoms; Denies as per HPI, Denies headache, Denies numbness, Denies paresthesia, Denies pre-existing deficit, Denies seizure, Denies tingling, Denies tremors, Denies weakness, Denies other Psychological: Reports no symptoms; Denies as per HPI, Denies anxiety, Denies depressed, Denies emotional problems, Denies other Endocrine: Reports no symptoms; Denies as per HPI, Denies excessive sweating, Denies flushing, Denies intolerance to cold, Denies intolerance to heat, Denies increased hunger, Denies increased thirst, Denies increased urination, Denies unexplained weight gain, Denies unexplained weight loss, Denies other Hematological/Lymphatic: Reports no symptoms Physical Exam Related Data Allergies: Coded Allergies: No Known Allergies (Unverified , 03/05/18) Triage Vital Signs Vital Signs Date Time Temp Pulse Resp B/P (MAP) Pulse Ox O2 Delivery O2 Flow Rate FiO2 04/19/20 14:40 98.1 72 16 198/100 98 Room Air Vital signs reviewed: Yes Physical Exam CONSTITUTIONAL Constitutional: Present well-developed, Present well-nourished; Absent obese, Absent morbidly obese, Absent cachectic, Absent diaphoretic, Absent distressed, Absent ill appearing, Absent other HENT HENT: Present normocephalic, Present atraumatic, Present oropharynx clear/moist, Present nose normal; Absent oropharynx normal, Absent mucosae dry, Absent nasal discharge, Absent nasal congestion, Absent rhinorrhea, Absent oropharyngeal exudate, Absent tonsillar excudate, Absent pharynx abnormal, Absent erythema, Absent dentition normal, Absent dental caries, Absent other HENT L/R: Present left ext ear normal, Present right ext ear normal EYES Eyes: Reports PERRL, Reports conjunctivae normal NECK Neck: Present ROM normal PULMONARY Pulmonary: Present effort normal, Present breath sounds normal CARDIOVASCULAR Cardiovascular: Present regular rhythm, Present heart sounds normal, Present capillary refill normal, Present normal rate; Absent irregular rhythm, Absent intact distal pulses, Absent tachycardia, Absent bradycardia, Absent murmur, Absent gallop, Absent friction rub, Absent palpable pulses, Absent strong pulses, Absent weak pulses, Absent LLE edema, Absent RLE edema, Absent other GASTROINTESTINAL Abdominal: Present soft, Present nontender, Present bowel sounds normal; Absent distension, Absent tender, Absent guarding, Absent mass, Absent rebound, Absent hernia, Absent left CVA tenderness, Absent right CVA tenderness, Absent other GENITOURINARY Genitourinary: Present exam deferred SKIN Skin: Present warm, Present dry; Absent erythema, Absent pale, Absent rash, Absent jaundiced, Absent bruising, Absent lesion, Absent other MUSCULOSKELETAL Musculoskeletal: Present ROM normal NEUROLOGICAL Neurological: Present alert, Present oriented x 3, Present no gross motor or sensory deficits PSYCHOLOGICAL Psychological: Present mood/affect normal, Present judgement normal Results Laboratory Lab results reviewed: Yes Imaging Imaging results reviewed: Yes Procedures 12 Lead ECG Interpretation ECG Interpretation : ECG: ECG 1 [facility] [employer] Family Social Worker: Interpreted by ED physician Date: Apr 19, 2020 Time: 14:43 Rhythm: sinus rhythm Rate: normal BPM: 63 QRS axis: normal ST segments normal: Yes T waves normal: Yes Clinical Impression: non-specific ECG Assessment & Plan Medical Decision Making MDM cad ACS FERD Reassessment Reassessment time: 15:24 Reassessment BETTER Assessment & Plan Final Impression: (1) Chest pain (2) Precordial pain Depart Disposition: ADMITTED Last Vital Signs Date Time Temp Pulse Resp B/P (MAP) Pulse Ox O2 Delivery O2 Flow Rate FiO2 04/19/20 14:40 98.1 72 16 198/100 98 Room Air Home Meds Reported Medications Metoprolol Succinate (METOPROLOL SUCCINATE) 50 Mg Tab.er.24h, 50 MG PO DAILY, MG 03/06/18 Aspirin (ASPIR 81) 81 Mg Tablet. 03/06/18 Amlodipine Besylate (NORVASC) 5 Mg Tab, 5 MG PO DAILY, #30 TAB 03/06/18 KEVYN JENKINS MD Apr 19, 2020 15:25
[2020-04-19] MEDS ORDERED: ONDANSETRON HCL INJ 2MG/ML 2ML 2 MG/ML VIAL IV PRN (15:30)
[2020-04-19] MEDS ORDERED: ASPIRIN 81 MG CHEW TAB PO ONE (15:30)
[2020-04-19] MEDS ORDERED: ASPIRIN 325 MG TAB PO ONE (15:30)
--- NOTE | 2020-04-19 15:55 | Diagnostic Imaging Report ---
EXAM: CXR 1 VIEW - [facility] DATE: 04/19/2020 3:20 PM COMPARISON: None FINDINGS: The trachea is midline. The lungs are symmetrically expanded without evidence for large focal consolidation, pneumothorax, or significant pleural effusion. The cardiomediastinal silhouette and pulmonary vasculature are within normal limits. No acute osseous abnormality is identified. The surrounding soft tissues are unremarkable. IMPRESSION: No acute cardiopulmonary process identified. Signed by: Dr. Navneet Gordon MD on 04/19/2020 3:52 PM
[2020-04-19] MEDS ORDERED: ASPIRIN 325 MG TAB ONE (16:16)
--- NOTE | 2020-04-19 16:19 | NUR ---
[facility] called for transport. eta 30-45 min
--- NOTE | 2020-04-19 16:28 | NUR ---
report given to Yasmeen
--- NOTE | 2020-04-19 17:25 | NUR ---
Received report from Mariza at 1626.
[2020-04-19 17:53] VITALS: BP 140/83
[2020-04-19 18:05] VITALS: BP 140/83
[2020-04-19] MEDS ORDERED: INFLUENZA VIRUS VAC SPLIT INJ 0.5 ML SYR IM SCH (18:30)
--- NOTE | 2020-04-19 19:18 | NUR ---
RECEIVED THE PATIENT IN REPORT.LYEING THE BED.NO PAIN VOICED.CALL LIGHT WITHIN REACH.INSTRUCTED TO CALL FOR ASSISTANCE NEEDED.
[2020-04-19 20:00] VITALS: BP 151/87
[2020-04-19 20:45] LABS: CREATINE KINASE MB 2.1 ng/mL (0-5.0)
[2020-04-19 20:56] VITALS: BP 151/87
[2020-04-19] MEDS ORDERED: PANTOPRAZOLE SO40 MG PO (23:32)
[2020-04-19 23:52] VITALS: BP 133/74
--- NOTE | 2020-04-19 23:55 | NUR ---
C/O HEADACHE.NOTIFIED TO .RECEIVED NEW ORDERS.
[2020-04-20] VITALS (7 sets, daily range): BP systolic 114–147; BP diastolic 60–83
[2020-04-20] MEDS: ACETAMINOPHEN 325 MG TAB PO PRN
[2020-04-20] MEDS: PANTOPRAZOLE SOD 40 MG TABEC PO SCH ×2 (00:14→20:46)
--- NOTE | 2020-04-20 07:00 | NUR ---
RECEIVED BEDSIDE SHIFT REPORT FROM OFF GOING NIGHT NURSE. RESPIRATIONS EVEN AND NONLABORED. PATIENT ABLE TO VOICE NEEDS. PATIENT IN STABLE CONDITION, NO S/S OF DISTRESS NOTED. IV SITE ASYMPTOMATIC AND PATENT,TRANSPARENT DRESSING C/D/I. TELEMETRY APPLIED. BED IN LOWEST POSITION AND LOCKED, SIDE RAILS X2 NON SKID SOCKS APPLIED. CALL LIGHT WITHIN REACH.
[2020-04-20] MEDS ORDERED: METOPROLOL SUCCINATE 50 MG TAB XL PO SCH (09:00)
[2020-04-20] MEDS ORDERED: ASPIRIN 325 MG TAB PO SCH (09:00)
[2020-04-20] MEDS ORDERED: ASPIRIN 325 MG TAB EC PO SCH (09:00)
[2020-04-20] MEDS ORDERED: HYDRALAZINE HCL 10 MG TAB PO PRN (09:15)
[2020-04-20] MEDS ORDERED: HYDRALAZINE HCL 20 MG/ML VIAL IV PRN (09:15)
[2020-04-20] MEDS: AMLODIPINE BESYLATE 5 MG TAB PO SCH (10:01)
[2020-04-20 11:40] LABS: CREATINE KINASE MB 1.8 ng/mL (0-5.0)
--- NOTE | 2020-04-20 11:42 | NUR ---
PATIENT OFF THE UNIT @ 1111 FOR A STRESS TEST. PATIENT LEFT THE UNIT IN STABLE CONDITION, NO S/S OF DISTRESS NOTED. VITAL SIGNS STABLE. TELEMETRY APPLIED. PATIENT ABLE TO VOICE NEEDS.
[2020-04-20] MEDS ORDERED: ONDANSETRON HCL 4 MG ORAL DISINTEGRATING TAB PO PRN (11:45)
--- NOTE | 2020-04-20 12:14 | History and Physical ---
ADDENDUM: The patient going to be started on hydrochlorothiazide 12.5 mg daily. We are going to cut down on metoprolol to 12.5 mg daily due to the bradycardia that she is having and the symptoms like she had with bradycardia including weakness and shortness of breath. We are going to check TSH and hemoglobin A1c also, because the patient does have a history of hypothyroidism. She quit taking her thyroid medication also because the patient has borderline diabetes also. MD BALTAZAR Alicia/MELISSA /[id number]
--- NOTE | 2020-04-20 12:29 | History and Physical ---
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 No chest pain on exertion. Blood pressure was found to be extremely high. The patient decided to come to the emergency room. The patient had a cardiac cath done around [address] Parada, Cardiology. He found a bridge of muscle on top of the left anterior descending artery before. REVIEW OF SYSTEMS: CARDIOVASCULAR: She has chest pain and shortness of breath on exertion. RESPIRATORY: Shortness of breath on exertion. No cough. No phlegm. GASTROINTESTINAL: No nausea or vomiting. No diarrhea. GENITOURINARY: No frequency. No dysuria. ALLERGIES: NOT ALLERGIC TO ANY MEDICATION. PAST MEDICAL HISTORY: Positive for hypertension, obesity, hypothyroidism, and borderline diabetes. SOCIAL HISTORY: She does not smoke. She does not drink. PHYSICAL EXAMINATION: VITAL SIGNS: Blood pressure 147/79, temperature 98.2, heart rate 56 per minute, respiratory rate 18 per minute, and oxygen saturation 99%. LABORATORY DATA: Troponins are negative. COVID-19 test is still pending. Chest x-ray showed no evidence of any congestive heart failure. FINAL IMPRESSION: 1. Chest pain, rule out coronary artery disease. 2. Hypertension. 3. Morbid obesity. 4. Hypothyroidism. 5. Borderline diabetes type 2. PLAN OF TREATMENT: We are going to continue with aspirin 81 mg daily. Continue with amlodipine 5 mg daily. Continue with metoprolol 25 mg daily and Protonix 40 mg daily. I am going to also order an echocardiogram to evaluate ejection fraction. We are going to order hemoglobin A1c, TSH, and Pulmonary consult because of shortness of breath to do a pulmonary function test, either inpatient or outpatient. The patient is stable right now. MD BALTAZAR Alicia/MELISSA /[id number]
--- NOTE | 2020-04-20 12:55 | Consultation ---
DATE OF CONSULTATION: Cardiac Consultation REASON FOR CONSULTATION: Chest pain and shortness of breath. HISTORY OF PRESENT ILLNESS: This is a delightful 64-year-old lady, who is known with hypertension. The patient came to this institution complaining of progressive worsening shortness of breath, tightness, easy fatigability, and tiredness. No fever. No chills. No exposure to COVID. The patient noted her stamina and her exercise were progressively worse. She is having chest pain. Her EKG showed nonspecific ST changes with LVH. Her first set of cardiac enzyme is normal. Cardiac consultation is obtained. 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 REVIEW OF SYSTEMS: GENERAL: No fever. No chills. HEENT: No vision problem. No hearing problem. PULMONARY: Progressive worsening shortness of breath and easy fatigability. CARDIAC: Chest pressure, chest tightness, easy fatigability. No orthopnea. No paroxysmal nocturnal dyspnea. GI: No hematemesis. No melena. : No hematuria. No dysuria. MUSCULOSKELETAL: Muscle aches and pain in several area of the body. SOCIAL HISTORY: . 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 She is nonsmoker and non-alcohol drinker. PAST MEDICAL HISTORY: 1. Hysterectomy. 2. Cholecystectomy. 3. Bladder suspension surgery. 4. GERD. 5. Hypertension. 6. Cardiac catheterization, March 06, 2018, showing muscle bridge. FAMILY HISTORY: Father at age 74 with lung cancer. Mother doing well in her 80s. Six siblings, two brothers and four sisters. She lost a brother to myocardial infarction at the age 40. Her son is healthy at age 36. Three grand children. HOME MEDICATIONS: Norvasc 5 mg a day, Toprol-XL 50 mg taking half tablet a day, and aspirin 81 mg a day. ALLERGIES: NONE. PHYSICAL EXAMINATION: VITAL SIGNS: Height of 5 feet 5 inches, weight of 209 pounds. Blood pressure 140/80, heart rate of 60, and respiratory rate of 18. HEENT: Pupils are equal and reactive. NECK: No elevation of jugular venous pulsation. No bruit. CHEST: Clear to auscultation and percussion. HEART: PMI 5th left intercostal space. Normal first and second heart sounds. ABDOMEN: Soft with good bowel sounds. No organomegaly. No abdominal bruits. EXTREMITIES: No cyanosis. No clubbing. No edema. NEUROLOGIC: Nonfocal. LABORATORY DATA: Cardiac enzymes are normal. The rest of the lab is not available. The patient was in the outpatient emergency center and her data did not come with her. IMPRESSION AND PLAN: 1. Chest pain, seems to be atypical. 2. Shortness of breath, multifactorial. 3. Known with muscle bridge. 4. Abnormal EKG. 5. Hypertension. 6. Hypercholesterolemia. 7. Varicose vein. No signs of deep venous thrombosis. 8. Family history of coronary artery disease. Case discussed with the patient. We will proceed with a cardiac stress test and echocardiogram and a venous Doppler of the lower extremities. We will follow the patient's progression with you. The patient already ordered for serial cardiac enzymes. We will follow the patient's progression with you. MD ALVARADO Christian/MODL /[id number]
--- NOTE | 2020-04-20 14:41 | NUR ---
PATIENT ARRIVE BACK TO THE UNIT @ 1422 FROM THE STRESS TEST VIA WHEELCHAIR. PATIENT IN STABLE CONDITION, NO S/S OF DISTRESS NOTED. NO CHEST PAIN VOICED. TELEMETRY APPLIED.
[2020-04-20 16:08] LABS: CREATINE KINASE MB 1.8 ng/mL (0-5.0)
[2020-04-20 16:51] LABS: ALANINE AMINOTRANSFERASE 80 IU/L (0-55); ALBUMIN 3.2 g/dL (3.5-5.0); ALBUMIN/GLOBULIN RATIO 0.7 (0.8-2.0); ALKALINE PHOSPHATASE 147 IU/L (40-150); ANION GAP 15.9 mmol/L (8-16); BLOOD UREA NITROGEN 15 mg/dL (7-26); BUN/CREATININE RATIO 19 (6-25); CALCIUM 8.7 mg/dL (8.4-10.2); CARBON DIOXIDE 21 mmol/L (22-29); CHLORIDE 106 mmol/L (98-107); CREATININE, SERUM 0.77 mg/dL (0.57-1.11); EST GLOMERULAR FILTRATION RATE > 60 ML/MIN (60-); GLUCOSE 270 mg/dL (74-118); POTASSIUM 3.9 mmol/L (3.5-5.1); SODIUM 139 mmol/L (136-145)
--- NOTE | 2020-04-20 17:49 | NUR ---
Nutrition Screen Note RD Recommendation for Physician: -Recommend cardiac diet Plan of Care: RD following, monitoring for tolerance and adequacy Nutrition reason for involvement: Nutrition Risk Trigger Primary Diagnose(s): chest pain, precordial pain PMH: hypertension, obesity, hypothyroidism, and borderline diabetes. Ht: 65 in Wt:209 lb BMI:34.8 kg/m2 IBW:[address] Assessment: (04/20/20) Chart reviewed. Labs and meds reviewed. Pt is a 64 year old female admitted with chest pain and precordial pain. Pt reports eating all of her meals. No weight loss reported and pt stated she weighed 209 lbs. Pt reports occasional nausea. No chewing/swallowing issues. RD discussed and provided written materials regarding following a heart healthy-low sodium diet. Pt verbalized understanding. Will continue to monitor. Current Diet: low sodium Malnutrition Evaluation (04/20/20) The patient does not meet criteria for a specified degree of malnutrition at this time. Will re-evaluate at follow-up as appropriate. Diet Education Needs Assessment: Diet education indicated, Learner(s): pt Barriers: no barriers identified Cultural/Language Modifications: no cultural/language modifications Readiness: pt verbalized understanding Method: explanation/discussion/handout Topics: heart healthy-low sodium Understanding/Compliance: pt verbalized understanding Nutrition Care Level: low Signed: Elba Carolina, RD, LD
--- NOTE | 2020-04-20 18:55 | Consultation ---
DATE OF CONSULTATION: Pulmonary Critical Care Consultation CHIEF COMPLAINT: Dyspnea and chest discomfort. HISTORY OF PRESENT ILLNESS: The patient is a 64-year-old woman. She reports intermittent dyspnea on exertion for about 6 months. It has been gradually worsening. It is not associated with any cough or wheezing. She has no chest pain. She has no fevers. So far she has not had any outpatient evaluation for this. She is not using any inhalers. She came to the emergency department for some chest discomfort on the right side. 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 She is on medications for this. PAST MEDICAL HISTORY: 1. Hypertension. 2. Hypothyroidism. 3. Borderline diabetes. PAST SURGICAL HISTORY: 1. Status post cardiac cath. 2. Status post hysterectomy. 3. Status post cholecystectomy. 4. Status post bladder suspension. SOCIAL HISTORY: The patient is a nonsmoker. She is not a drinker. 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 FAMILY HISTORY: There is a history of lung cancer as well as heart disease. ALLERGIES: THERE ARE NO KNOWN DRUG ALLERGIES. REVIEW OF SYSTEMS: The patient has no fevers. She has no headache. She has no neck pain. She is not having any chest pain at this time, although she did have chest pain on admission. She is not having any wheezing. She does note some mild dyspnea on exertion. She has no cough. She does not complain of abdominal pain. There is no nausea or vomiting. She does have some mild leg swelling, which she attributes to Norvasc. She has no focal neurological complaints. PHYSICAL EXAMINATION: VITAL SIGNS: The blood pressure is 136/83 and the saturation is 98% on room air. The pulse is 51. Respiratory rate is 18. HEENT: Shows no facial swelling or erythema. LYMPHATIC: Shows no submandibular, cervical, or supraclavicular adenopathy. CARDIAC: Reveals a regular rate and rhythm with normal S1 and S2. LUNGS: Auscultation of lungs reveals clear breath sounds bilaterally. There is no wheezing. ABDOMEN: Soft and nontender. There is no rebound or guarding. EXTREMITIES: Show 1+ leg edema. LABORATORY DATA: White blood cell count is 9.2, the hemoglobin is 13.4, and the platelet count is 213. The BUN to creatinine ratio is 13 to 0.76 and the other electrolytes within normal limits. The AST and ALT were normal. The albumin was 3.5. RADIOGRAPHIC DATA: Chest x-ray shows no disease. IMPRESSION: 1. Dyspnea on exertion of unclear etiology. 2. Atypical chest pain. 3. Hypothyroidism. 4. Hypertension. PLAN: 1. The patient will have echocardiogram and Cardiology evaluation. 2. CT scan of chest. 3. Pulmonary function tests. Brian Ramires MD [facility]/MODL /[id number]
--- NOTE | 2020-04-20 19:15 | NUR ---
Received the patient in report.lyeing in the bed.bed locked and in lowest position.phone and call light within reach.instructed to call for assistance as needed.waiting to do CT chest.
--- NOTE | 2020-04-20 19:38 | NUR ---
COMPLETED BEDSIDE SHIFT REPORT AND ROUNDING NIGHT NURSE. RESPIRATIONS EVEN AND NONLABORED. PATIENT ABLE TO VOICE NEEDS. PATIENT IN STABLE CONDITION, NO S/S OF DISTRESS NOTED. IV SITE ASYMPTOMATIC AND PATENT,TRANSPARENT DRESSING C/D/I. TELEMETRY APPLIED. BED IN LOWEST POSITION AND LOCKED, SIDE RAILS X2 NON SKID SOCKS APPLIED. CALL LIGHT WITHIN REACH.
--- NOTE | 2020-04-20 20:10 | NUR ---
Patient wants to talk to .call placed to answering service and notified.awaiting call back.
--- NOTE | 2020-04-20 20:49 | Diagnostic Imaging Report ---
EXAM: CT Chest WITH contrast (PE Protocol) INDICATION: ^DYSPNEA PE ^[id number] ^1948 COMPARISON: Chest radiograph 04/19/2020, CT abdomen/pelvis 11/19/2019 TECHNIQUE: Chest was scanned utilizing a multidetector helical scanner from the lung apex through the level of the diaphragm after administration of IV contrast. Thin section reconstructions were obtained with special concentration on the pulmonary arteries. Coronal and sagittal reformations were obtained. Pulmonary embolism protocol was performed. IV CONTRAST: 100 mL of Isovue 370 COMPLICATIONS: None RADIATION DOSE: Total DLP: 582.1 mGy*cm Estimated effective dose: (DLP x 0.014 x size factor) mSv CTDIvol has been reviewed. It is below the limits set by the Radiation Protocol Committee (RPC). Dose modulation, iterative reconstruction, and/or weight based adjustment of the mA/kV was utilized to reduce the radiation dose to as low as reasonably achievable. FINDINGS: LINES/ TUBES: None. LUNGS AND AIRWAYS: Right upper lobar and proximal segmental arteries are obscured by streak artifact from dense IV contrast. No filling defect is identified within the remaining pulmonary arteries to the segmental level. Peripheral subpleural groundglass opacities predominantly within the dependent lower lobes and to a lesser extent the lateral aspect of the bilateral upper lobes are favored to represent some segmental atelectasis. Airways are normal. PLEURA: The pleural spaces are clear. HEART AND MEDIASTINUM: The thyroid gland is normal. No mediastinal, hilar or axillary lymphadenopathy. The heart is normal in size. There is no pericardial effusion. There are subtle atherosclerotic calcifications in the aorta and coronary arteries. Main pulmonary artery measures 2.9 cm in diameter and the ascending aorta measures 3.5 cm. UPPER ABDOMEN: Small gastroesophageal hiatal hernia. Redemonstrated cirrhotic liver morphology with simple cyst in the right hepatic dome. Status post cholecystectomy surgical clips in the gallbladder fossa. Remaining visualized portions of the upper abdomen are unremarkable given limitations with timing of contrast bolus. BONES: No acute osseous abnormality. Mild multilevel degenerative changes of the thoracic spine. SOFT TISSUES: Dystrophic focal calcification within the subcutaneous fat at the level of T2-T3. IMPRESSION: 1. No pulmonary emboli given exam limitations with obscured right upper lobar and proximal segmental arteries. 2. Subpleural groundglass opacities predominantly within the dependent lung bases and to a lesser extent the periphery of the upper lobes, favored to represent subsegmental atelectasis and developing infectious process is considered less likely. 3. Redemonstrated cirrhotic liver morphology. Signed by: Dr. Oneil Farrar M.D. on 04/20/2020 8:45 PM
[2020-04-21] MEDS ORDERED: IOPAMIDOL 370 MG/ML 200 ML INFUS..BTL INJ ONE (00:02)
[2020-04-21] MEDS ORDERED: SODIUM CHLORIDE 0.9% 50ML 50 ML ONE (00:02)
[2020-04-21 00:10] VITALS: BP 145/91
[2020-04-21] MEDS: ACETAMINOPHEN 325 MG TAB PO PRN (00:10)
--- NOTE | 2020-04-21 00:20 | NUR ---
Patient is on npo for procedure.hibicleans shower taken.patient stated that "has some concerns and wants to talk to before signed the consent.no chest pain voiced.
--- NOTE | 2020-04-21 02:38 | Myoview Stress Test ---
DATE OF STUDY: 04/20/2020 09:28:00 Stress Test - Treadmill ONLY EXERCISE NUCLEAR STRESS TEST.: PROCEDURES PERFORMED: 1. Exercise treadmill stress testing. 2. Rest/stress nuclear SPECT scan/single photon emission computed tomographic imaging. INDICATION FOR STUDY: Chest pain. TECHNICAL DETAILS: After risks, benefits, pros and cons of today's exercise nuclear stress test explained to the patient, the patient agreed to proceed. The patient was brought down to the nuclear lab where she received an 11 mCi dose of technetium-99m tetrofosmin intravenously and after 40 minutes, the patient was taken to the [place] SPECT camera for resting myocardial perfusion computed tomographic imaging. Afterwards, the patient was then brought to the stress lab where 12-lead EKG monitoring and blood pressure monitoring were obtained. She exercised on a Griffin protocol going from a baseline heart rate of 54 beats per minute to a maximum of 152 beats per minute, which is above our target heart rate of 133 beats per minute. Blood pressure went from baseline of 129/73 to a maximum of 177/80, which is an appropriate blood pressure response. Underlying EKG revealed normal sinus rhythm, normal axis, and peak exercise. There were ischemic EKG changes in the inferior and lateral leads up to 3 mm downsloping, which was positive and she had chest pain at peak exercise. The protocol was terminated after 8 minutes and 42 seconds of exercise and we had completed our target. At 8 minutes and 1 seconds of the exercise protocol and stage III at a heart rate of 152 beats per minute, she received a 29.5 millicurie dose of technetium-99m tetrofosmin intravenously and she was exercised for a bit more to circulate the radioisotope. Afterwards, the patient was then taken to the SPECT camera for stress myocardial perfusion imaging/stress single photon emission computed tomographic imaging. FINDINGS: 1. Resting myocardial perfusion imaging reveals largely normal tracer uptake. 2. Stress myocardial perfusion imaging reveals a moderate area of decreased uptake in the lateral and inferior lateral jackson not present at resting image. 3. The following gated measurements were obtained: End-diastolic volume 87 mL, end systolic volume 31 mL, calculated left ventricular ejection fraction is 65% with normal wall motion. 4. Exercise treadmill stress test portion was positive for ischemic EKG changes and chest pain symptoms. CONCLUSIONS: 1. Abnormal myocardial perfusion imaging study revealing a moderate area of complete reversible uptake at the lateral and inferolateral jackson. 2. Exercise treadmill stress test portion of the study is abnormal and is positive. 3. Normal left ventricular function with EF of 65%. 4. Overall findings of the stress test compatible with a moderate risk stress test. MD APRIL Olivares/MELISSA /[id number]
[2020-04-21 04:00] VITALS: BP 136/58
[2020-04-21 05:13] LABS: BASOPHILS % 0.5 % (0.0-1.0); EOSINOPHILS # (AUTO) 0.2 (0.0-0.4); EOSINOPHILS % 2.3 % (0.0-6.0); HEMATOCRIT 39.9 % (34.2-44.1); HEMOGLOBIN 13.7 g/dL (12.0-16.0); LYMPHOCYTES # (AUTO) 2.9 (1.0-3.2); LYMPHOCYTES % 35.3 % (18.0-39.1); MEAN CORPUSCULAR HEMOGLOBIN 31.5 pg (28-32); MEAN CORPUSCULAR HGB CONC 34.3 g/dL (31-35); MEAN CORPUSCULAR VOLUME 91.7 fL (81-99); MONOCYTES # (AUTO) 0.5 (0.2-0.8); MONOCYTES % 6.6 % (4.4-11.3); NEUTROPHILS # (AUTO) 4.5 (2.1-6.9); NEUTROPHILS % 55.1 % (38.7-80.0); PLATELET COUNT 189 x10e3/uL (140-360); RED BLOOD COUNT 4.35 x10e6/uL (3.6-5.1); RED CELL DISTRIBUTION WIDTH 13.3 % (11.7-14.4)
[2020-04-21] MEDS: SODIUM CHLORIDE 0.9% 1000ML 1,000 ML IV SCH ×2 (05:32→15:00)
[2020-04-21 05:41] LABS: ALANINE AMINOTRANSFERASE 74 IU/L (0-55); ALBUMIN 3.2 g/dL (3.5-5.0); ALBUMIN/GLOBULIN RATIO 0.7 (0.8-2.0); ALKALINE PHOSPHATASE 148 IU/L (40-150); ANION GAP 13.1 mmol/L (8-16); BLOOD UREA NITROGEN 16 mg/dL (7-26); BUN/CREATININE RATIO 21 (6-25); CALCIUM 9.1 mg/dL (8.4-10.2); CARBON DIOXIDE 24 mmol/L (22-29); CHLORIDE 107 mmol/L (98-107); CHOL/HDL RATIO 3.8 (3.0-3.6); CHOLESTEROL 191 MD/DL (0-199); CREATININE, SERUM 0.75 mg/dL (0.57-1.11); EST GLOMERULAR FILTRATION RATE > 60 ML/MIN (60-); GLUCOSE 164 mg/dL (74-118); HDL CHOLESTEROL 50 MG/DL (40-60); LDL CHOLESTEROL 114 MG/DL (60-130); POTASSIUM 4.1 mmol/L (3.5-5.1); SODIUM 140 mmol/L (136-145); TRIGLYCERIDES 134 MG/DL (0-149)
[2020-04-21 05:49] LABS: THYROID STIMULATING HORMONE 4.699 uIU/mL (0.350-4.940)
--- NOTE | 2020-04-21 06:15 | NUR ---
CONSENT NOT OBTAINED.NOTIFIED TO DR.JEROUDI JONES.ON NPO.NO CHEST PAIN VOICED.STABLE CONDITION.
[2020-04-21] MEDS ORDERED: ASPIRIN 81 MG CHEW TAB PO SCH (07:30)
[2020-04-21 08:28] VITALS: BP 136/58
--- NOTE | 2020-04-21 08:40 | NUR ---
Dr. Parada spoke with pt at bedside. states pt is stable and he will cancel Cardiology procedure today. states pt is stable to go home and follow up with preferred Stabilizing Machine Operator in the [facility]. will page Dr. Garcia for discharge order.
[2020-04-21] MEDS ORDERED: HYDROCHLOROTHIAZIDE 25 MG TAB PO SCH (09:00)
[2020-04-21] MEDS ORDERED: METOPROLOL SUCCINATE 25 MG TAB XL PO SCH (09:00)
[2020-04-21 09:04] VITALS: BP 144/71
[2020-04-21] MEDS: AMLODIPINE BESYLATE 5 MG TAB PO SCH (09:13)
[2020-04-21 12:15] VITALS: BP 150/81
--- NOTE | 2020-04-21 14:10 | Progress Note ---
DATE: SUBJECTIVE: The patient had a CT scan of the chest which showed no pulmonary embolism. There was some changes in the liver suggestive of possible cirrhosis. There is also some opacities in the dependent portion of the lungs, probably representing segmental atelectasis. The patient also had a stress test that was positive. Apparently, this is related to her congenital bridge and logistics operations manager had recommended further treatment at the tertiary care center. PHYSICAL EXAMINATION: VITAL SIGNS: The blood pressure 150/81, saturation is 99% and the pulse is 63. HEENT: Shows no facial swelling or erythema. LYMPHATIC: Shows no submandibular, cervical, or supraclavicular adenopathy. CARDIAC: Reveals a regular rate and rhythm with normal S1, S2. LUNGS: Auscultation of lungs reveals rhonchorous breath sounds bilaterally. There is no wheezing. ABDOMEN: Soft, nontender. There is no rebound or guarding. EXTREMITIES: Shows no leg edema or calf tenderness. There is no cyanosis or clubbing. SKIN: Shows no rashes. LABORATORY DATA: The BUN to creatinine ratio is 16 to 0.75 and the other electrolytes are within normal limits. Albumin is 3.2. White blood cell count is 8.1, hemoglobin is 13.7. IMPRESSION: 1. Abnormal stress test with some occlusion of the coronary artery related to a muscle bridge. 2. Abnormal liver morphology on CT scan. 3. Subsegmental atelectasis. 4. Hypothyroidism. 5. Hypertension. PLAN: 1. The patient is being scheduled for catheterization. 2. The patient will need evaluation by hepatology for possible cirrhosis or steatohepatitis. 3. Continue thyroid medicine. 4. Re-evaluation of dyspnea after cardiac issues have been treated. Brian Ramires MD [facility]/JANELLL /[id number]
[2020-04-21 16:32] VITALS: BP 128/75
--- NOTE | 2020-04-21 16:42 | Discharge Summary ---
HOSPITAL COURSE: The patient is a 64-year-old female, past medical history for hypertension, came with chest pain. Cardiac enzymes were negative. EKG was unremarkable. She also had shortness of breath on exertion. She had prior cardiac catheterization done by Dr. Parada, signal inspector less than a year ago that show bridge of muscle on top of left anterior descending artery. The patient was seen by Dr. Parada and she already had cardiac cath done recently. She was discharged home. PHYSICAL EXAMINATION: HEART: Showed regular rhythm. Normal S1 and S2 sound. LUNGS: Clear bilaterally. ABDOMEN: Soft. FINAL IMPRESSION: 1. Atypical chest pain. 2. Hypertension. 3. Hypercholesterolemia. PLAN OF TREATMENT: Continue current medication regimen, which includes aspirin, metoprolol, and statins. She will be started on hydrochlorothiazide for hypertension . The patient will follow up in a week. The patient is released by Dr. aPrada also from a cardiac point of view. MD BALTAZAR Alicia/MELISSA /[id number]
--- OUTSIDE RECORDS SUMMARY | 2020-04-27 17:32 | XMS REPORT | Continuity of Care Document ---
Author Author [facility] t Organization [facility] Address [address] [place] [address] [address] [place] [address] Phone Unavailable Care Team Providers Care Track Greaser Name Role Phone RAJ MENDEZ MD PCP Rehrer Henry ARREOLA Attphys Max Voss MD Attphys Vince Delaney MD Attphys RAJ MENDEZ Attphys Unavailable Lara KIDD Attphys Unavailable ZANE VOSS Admphys Unavailable RAJ MENDEZ Admphys Unavailable Payers Payer Name Policy Type Policy Number Effective Date Expiration Date S tiffanie [facility] CHOICE/CHOICE [id number] 2019-PresentHMO/ PPO [id number] 2019 00:00:00 Johny Wood Problems Condition Name Condition Details Condition Category Status Onset Date Resolution Date Last Treatment Date Treating Clinician Comments Source Acute coronary syndrome Acute coronary syndrome Disease Active 2020-04-25 00:00:[address] Abnormal stress test Abnormal stress test Disease Resolved 04-21 00:00:00 2020-04-25 00:00:00 2020-04-25 09:32:35 Johny Wood Allergies, Adverse Reactions, Alerts This patient has no known allergies or adverse reactions. Social History Social Habit Start Date Stop Date Quantity Comments Source Sex Assigned At [facility] Tobacco use and exposure 2020-04-25 00:00:00 2020-04-25 00:00:00 Hui balderas used Johny Wood Alcohol intake 2020-04-25 00:00:00 2020-04-25 00:00:00 Current drinker of alcohol (finding) Johny Wood Alcohol Comment 2020-04-21 00:00:00 2020-04-21 00:00:00 occasionally Johny Wood Smoking Status Start Date Stop Date Source Never smoker Johny Mcmahon t Medications Ordered Medication Name Filled Medication Name Start Date Stop Da te Current Medication? Ordering Clinician Indication Dosage Frequency Signature (SIG) Comments Components Source metFORMIN (Glucophage) 500 mg tablet 2020-04-27 00:00:00 Ye s 500mg QD Take 1 tablet (500 mg total) by mouth nightly. Start on 04-27-2020 Johny Wood aspirin 81 mg chewable tablet 2020-04-26 00:00:00 2020-05-26 23: 59:00 Yes 81mg QD Chew 1 tablet (81 mg total) daily for 30 days. Johny Wood isosorbide mononitrate (IMDUR) 60 MG 24 hr tablet 2020-04-26 00:00:00 2020-05-26 23:59:00 Yes 60mg QD Take 1 tablet (60 mg total) by mouth daily for 30 days. Johny Wood metoprolol succinate XL (TOPROL-XL) 25 mg 24 hr tablet 2020-04-26 00:00:00 2020-05-26 23:59:00 Yes 25mg QD Take 1 tablet (25 mg total) by mouth daily for 30 days. Johny Wood metoprolol tartrate (LOPRESSOR) 25 mg tablet 18:00:2020-04-25 00:00:00 No 25mg QD Take 25 mg by mouth daily. Johny Wood amLODIPine (NORVASC) 5 mg tablet 2020-04-25 18:00:2020-04 00:00:00 No 5mg QD Take 5 mg by mouth daily. Johny Wood pantoprazole (PROTONIX) 40 MG EC tablet 2020-04-25 18:00:25 Yes 40mg QD Take 40 mg by mouth daily. Johny Metho dist blood sugar diagnostic strips (FreeStyle Test) strip test st rips 2020-04-25 00:00:00 Yes Check blood sugars every morn ing Johny Wood blood-glucose meter (glucose monitoring kit) kit 2020-04-25 00:00:00 2021-04-25 23:59:00 Yes Use as instructed Johny Wood blood-glucose meter kit 2020-04-25 00:00:00 2021-04-25 23:59:00 Elpidio envarez Check blood sugars q. a.m. Johny mcfarlane atorvastatin (LIPITOR) 40 mg tablet 2020-04-25 00:00:0 0 2020-05-25 23:59:00 Yes 40mg QD Take 1 tablet (40 mg total) by mouth nig htly for 30 days. Johny Wood losartan (Cozaar) 25 MG tablet 2020-04-25 00:00:00 3 23:59:00 Yes 25mg QD Take 1 tablet (25 mg total) by mouth daily for 30 days. Johny Wood Amlodipine Besylate (Norvasc) 5 Mg Tab Amlodipine Besylate (Norv asc) 5 Mg Tab Yes 5 Daily [facility] Aspirin (Aspir 81) 81 Mg Tablet. Aspirin (Aspir 81) 81 Mg Tablet.dr Tracy [facility] Metoprolol Succinate 50 Mg Tab.er.24h Metoprolol Succinate 50 Mg Ta b.er.24h Yes 50 Daily [facility] Immunizations Ordered Immunization Name Filled Immunization Name Date Status Comments Source FLUCELVAX QUAD PF 2020-04-25 00:00:00 Completed Johny Wood Vital Signs Vital Name Observation Time Observation Value Comments Source Systolic blood pressure 2020-04-25 16:17:22 110 mm[Hg] Johny Wood Diastolic blood pressure 2020-04-25 16:17:22 53 mm[Hg] Johny Wood Heart rate 2020-04-25 16:17:22 66 /min Johny Wood Body temperature 2020-04-25 16:17:22 36.44 Lina Henry Wood Respiratory rate 2020-04-25 16:17:22 20 /min Henry Wood Oxygen saturation in Arterial blood by Pulse oximetry 2019-06 16:17:22 95 /min Johny Wood Body weight 2020-04-24 05:00:00 94.076 kg Johny Wood BMI 2020-04-24 05:00:00 34.51 kg/m2 Johny Wood Body height 2020-04-21 22:36:38 165.1 cm Johny Wood Procedures Procedure Date / Time Performed Performing Clinician Sourdiana e POC GLUCOSE 2020-04-25 17:08:00 Zane Voss odist POC GLUCOSE 2020-04-25 11:47:00 Zane Voss odkahlil POC GLUCOSE 2020-04-25 07:31:00 Zane Voss odist POC GLUCOSE 2020-04-24 18:31:00 Zane Voss odkahlil POC GLUCOSE 2020-04-24 14:11:00 Zane Voss CV SELECTIVE CORONARY ANGIOGRAPHY 2020-04-24 13:46:02 Jorge A Smith POC GLUCOSE 2020-04-24 12:50:00 Zane Voss odkahlil POC GLUCOSE 2020-04-24 08:08:00 Zane Voss HC COMPLETE BLD COUNT W/AUTO DIFF 2020-04-24 05:00:00 Zane Voss HEMOGLOBIN A1C 2020-04-24 05:00:00 Zane Voss BASIC METABOLIC PANEL 2020-04-24 04:00:00 Zane Voss PHOSPHORUS LEVEL 2020-04-24 04:00:00 Zane Voss MAGNESIUM LEVEL 2020-04-24 04:00:00 Zane Voss LIPID PANEL 2020-04-24 04:00:00 Zane Voss THYROID STIMULATING HORMONE 2020-04-24 04:00:00 Zane Voss ESTIMATED GFR 2020-04-24 04:00:00 Zane Voss POC GLUCOSE 2020-04-23 20:56:00 Zane Voss US CAROTID DUPLEX BILATERAL 2020-04-23 14:46:00 Zane Voss TTE COMPLETE, W CONTRAST, W DOPPLER ([id number]) 2020-04-23 10:30 :00 Grisel Smith HC COMPLETE BLD COUNT W/AUTO DIFF 2020-04-22 03:00:00 Zane Voss HEMOGLOBIN A1C 2020-04-22 03:00:00 Zane Voss odkahlil LACTIC ACID LEVEL 2020-04-22 03:00:00 Zane Voss Ri thodist LACTIC ACID LEVEL, SEPSIS - NOW AND REPEAT 2X EVERY 3 HOURS 2020-04-22 01:54:00 MckaylareJh balderas TROPONIN 2020-04-22 01:54:00 Rehrer, Jh Henry Wood LACTIC ACID LEVEL, SEPSIS - NOW AND REPEAT 2X EVERY 3 HOURS 2020-04-21 23:00:00 Rehrer, Jh Henry Wood TROPONIN 2020-04-21 23:00:00 Rehrer, Jh Henry Wood XR CHEST 1 VW PORTABLE 2020-04-21 20:50:54 Rehrer, Jh Henry Wood ECG ED PRELIMINARY INTERPRETATION 2020-04-21 20:32:00 Rehrer, [facility] Henry Johny Wood COVID-19 QUALITATIVE PCR 2020-04-21 20:17:00 Rehrer, Jh Henry Wood HC COMPLETE BLD COUNT W/AUTO DIFF 2020-04-21 20:17:00 Rehrer, [facility] Henryjayesh Wood PROTHROMBIN TIME WITH INR 2020-04-21 20:17:00 Rehrer, Jh Wood PARTIAL THROMBOPLASTIN TIME (PTT) 2020-04-21 20:17:00 Rehrer, [facility] Henry Johny Wood PHOSPHORUS LEVEL 2020-04-21 20:17:00 Rehrer, Jh Wood LACTIC ACID LEVEL, SEPSIS - NOW AND REPEAT 2X EVERY 3 HOURS 2020-04-21 20:17:00 Rehrer, Jh Henry Wood CREATINE KINASE, TOTAL (CPK) 2020-04-21 20:17:00 Rehrer, Jh Wood B NATRIURETIC PEPTIDE 2020-04-21 20:17:00 Rehrer, Hj Henry Wood TROPONIN 2020-04-21 20:17:00 Rehrer, Jh Henry Wood COMPREHENSIVE METABOLIC PANEL 2020-04-21 20:17:00 Rehrer, Jh Wood MAGNESIUM LEVEL 2020-04-21 20:17:00 Rehrer, Jh Wood ESTIMATED GFR 2020-04-21 20:17:00 Rehrer, Jh Henry Wood ECG 12-LEAD 2020-04-21 19:50:11 Rehrer, Jh Wood X-ray of chest, two views 2018-03-05 00:00:00 RAJ MENDEZ CH, I [facility] Plan of Care Planned Activity Planned Date Details Comments Source Future Scheduled Test 2006 00:00:00 BREAST CANCER SCRE ENING [code = BREAST CANCER SCREENING] Johny Wood Future Scheduled Test 2006 00:00:00 COLONOSCOPY SCREEN ING [code = COLONOSCOPY SCREENING] Johny Wood Scheduled Test 2006 00:00:00 SHINGLES VACCINES (#1) [code = SHINGLES VACCINES (#1)] Johny Wood Future Scheduled Test 1977 00:00:00 Screening for catarina gnant neoplasm of cervix (procedure) [code = 500632780] Johny Mcmahon Encounters Start Date/Time End Date/Time Encounter Type Admission Type [facility] Care Department Encounter ID Source 2020-04-21 00:00:00 2020-04-25 00:00:00 Inpatient ZANE VOSS [facility] [id number] Johny Wood 2018-03-05 17:00:00 2018-03-06 18:56:00 Discharged Inpatient (obs) 3 VANESSA, RAJ [facility] [id number] [facility] Results Test Description Test Time Test Comments Results Result Comments Source POC glucose 2020-04-25 17:10:07 Test Item POC glucose (test code = 65696-0) 156 mg/dL 65-99 H [employer] Supervisor Name: Ziggy Garcia ID: [id number]: [facility] Notified education and outreach coordinator Interpretation (test code = 17423-1) Abnormal [place] [facility] [id number] 15:26:15Procedure Details:The patient was brought to the cardiac catheterization laboratory in a fasting state. Informed consent was obtained prior to procedure. Groin was prepped and draped in the usual sterile fashion. Moderate sedation was administered with physician supervision of patient consciousness, respiration, Oxygen saturation and CO2 monitoring, beginning at 1319 ( time) for a total period of 26 minutes. Skin was infiltrated with 1% lidocaine for local anesthesia. Arterial access was obtained using modified Seldinger technique. 5Fr. sheath was inserted into the right common femoral artery. Selective coronary angiogram was then performed in a standard fashion using FL4 and WR catheters. The patient tolerated the procedure well and there were no immediate complications. Find ings:LM: Patent LAD: Patent, no significant angiographic diseaseLCx: Patent, no significant angiographic diseaseRCA: Patent, no significant angiographic disease Right Dominant Circulation [facility] MethodistECG 12 [id number] 10:57:40* Test Item Value Reference Range Interpretation Comments Ventricular rate (test code = 253) 61 Atrial rate (test code = 255) 61 OR interval (test code = 266) 162 QRSD interval (test code = 260) 94 QT interval (test code = 264) 400 QTC interval (test code = 265) 402 P axis 1 (test code = 267) 23 QRS axis 1 (test code = 268) 42 T wave axis (test code = 270) 108 EKG impression (test code = 273) Normal sinus rhythm-S T & T wave abnormality, consider lateral ischemia-Abnormal ECG-In automated comparison with ECG of 26-FEB-2018 17:59,-No significant change was found- [place] MethodistHemoglobin [id number] 10:07:19* Test Item Value Reference Range Interpretation Comments Hemoglobin A1C (test code = 89640-7) 7.6 % 4-5.6 H HbA1c cutoffs for diagnosing diabetes:4.0% - 5.6% = normal5.7% - 6.4% = increased risk for diabetes (prediabetes)9>=6.5% = gecnwztk3Tokrj for glycemic control (ADA 2016)< 7.0% Target for non adults with diabetes. More or less stringent targets may be appropriate for individual patients. <7.5% Target for Children and adolescents with type 1 diabetes. LAY (test code = LAY) A1C added and read back to Rohan Guardado in A8 04/24/2020 07:43 LMID. Lab Interpretation (test code = 83436-4) Abnormal [place] MethodistThyroid stimulating [id number] 06:25:45* Test Item Value Reference Range Interpretation Comments TSH (test code = 3016-3) 3.30 0.27- 4.20 uIU/mL [place] MethodistBasic metabolic [id number] 06:21:06* Test Item Value Reference Range Interpretation Comments Sodium (test code = 2951-2) 140 135- 148 mEq/L Potassium (test code = 2823-3) 4.1 3.5- 5.0 mEq/L Chloride (test code = 2074-0) 104 98- 112 mEq/L CO2 (test code = 2027-) 23 24- 31 mEq/L L Anion gap (test code = 77983-2) 13@ANIO 7- 15 mEq/L BUN (test code = 3094-0) 16 mg/dL 8-23 Creatinine (test code = 2160-0) 0.60 mg/dL 0.5-0.9 Glucose (test code = 2345-7) 156 mg/dL 65-99 H Calcium (test code = 71143-5) 8.8 mg/dL 8.8-10.2 Lab Interpretation (test code = 51883-6) Abnormal [place] MethodistLipid [id number] 06:21:06* Test Item Value Reference Range Interpretation Comments Cholesterol (test code = 3-3) 147 mg/dL <200 Triglycerides (test code = 2571-8) 116 mg/dL <150 HDL cholesterol (test code = 2084-9) 48 mg/dL >40 LDL cholesterol (test code = 2088-1) 88 mg/dL <100 Result obtained by direct LDL measurement Lipid panel interpretation (test code = 53921-4) SeeBelow Total Cholesterol (mg/dL) <200 Desirable 200-239 Borderline-high >=240 High Triglycerides (mg/dL) <150 Normal 150-199 Borderline-high 200-499 High >=500 Very high HDL Cholesterol (mg/dL) <40 Low (male) <40 Low (female) LDL Cholesterol (mg/dL) <100 Optimal 100-129 Near or above optimal 130-159 Borderline-high 160-189 High >=190 Very high Risk Catergories that modify LDL goals.Risk Catergories LDL goal (mg/dL)CHD and CHD risk equivalent <100 (10-year risk >20%)Multiple (2+) risk factors <130 (10-year risk =<20%)0-1 risk factors <160 (<10-year risk) Defining levels of lipids in metabolic syndromeTriglycerides >=150 mg/dLHDL Cholesterol Men <40 mg/dL Women <40 mg/dL Non-HDL cholesterol is a second target for therapy in personswith high triglycerides (>=200 mg/dL) [place] MethodistMagnesium [id number] 06:21:05* Test Item Value Reference Range Interpretation Comments Magnesium (test code = 38193-0) 1.9 mg/dL 1.6-2.4 Johny MethodistPhosphorus [id number] 06:21:04* Test Item Value Reference Range Interpretation Comments Phosphorus (test code = 2777-1) 3.4 mg/dL 2.4-4.5 Johny MethodistEstimated [id number] 06:21:04* Test Item Value Reference Range Interpretation Comments Estimated GFR (test code = 5488) >=90 mL/min/1.73 m2 Catergory Units InterpretationG1 >=90 Normal or highG2 60-89 Mildly imvctyplhE4y 45-59 Mildly to moderately xftgrthamO0i 30-44 Moderately to severely decreasedG4 15-29 Severely decreasedG5 <15 Kidney failureThe eGFR was calculated using the Chronic Kidney Disease Epidemiology Collaboration (CKD-EPI) equation. Interpretation is based on recommendations of the National Kidney Foundation-Kidney Disease Outcomes Quality Initiative (NKF-KDOQI) published in 2014. Johny MethodistCBC with platelet and txnuxwgvfefk1610-10-69 05:54:00* Test Item Value Reference Range Interpretation Comments WBC (test code = 39657-6) 7.05 4.50- 11.00 k/uL RBC (test code = 43744-7) 4.12 m/uL 4.2-5.5 L HGB (test code = 718-7) 12.5 g/dL 12-16 HCT (test code = 4544-3) 37.5 % 37-47 MCV (test code = 787-2) 91.0 fL 82-100 MCH (test code = 785-6) 30.3 pg 27-34 MCHC (test code = 786-4) 33.3 g/dL 31-37 RDW - SD (test code = 08282-4) 44.6 fL 37-55 MPV (test code = 84315-2) 11.8 fL 8.8-13.2 Platelet count (test code = 69082-8) 182 150- 400 k/uL Nucleated RBC (test code = 83997-4) 0.00 /100 WBC Neutrophils (test code = 58224-0) 45.3 % 39-69 Lymphocytes (test code = 77732-6) 43.0 % 25-45 Monocytes (test code = 67500-6) 8.1 % 0-10 Eosinophils (test code = 19270-2) 2.7 % 0-5 Basophils (test code = 33671-7) 0.6 % 0-1 Immature granulocytes (test code = 00969-2) 0.3 % 0-1 "Immature granulocytes" (promyelocytes, myelocytes, metamyelocytes) Lab Interpretation (test code = 31898-3) Abnormal [place] MethodistUs carotid rerddm5725-10-62 17:00:00Interface, Radiology Results In - 04/23/2020 5:01 PM [facility] Vascular Ultrasound Laboratory Carotid Artery Duplex Report [address] [address], [place] [address] For quality control microbiologist purposes, the categorization of the degree of the stenosis of this exam is based on criteria described in the IAC carotid stenosis grading white paper( www.intersocietal.org/Vascular) and Rafa Mooney, Svetlana Romero, et al. Carotid artery stenosis: tran-scale and Doppler US diagnosis--Society of Radiologists in Ultrasound Consensus C onference. Radiology. 2003 Nov; 229(2):340-6. Pat.Name: NEVAEH ARENAS Annabella.ID: [id number] .Date: 04/23/2020 Refer.MD: ZANE VOSS MD Exam Time: 2:31:00 PM Study Type:Carotid Height: 65in Weight: 206lb BSA: 2 m2 Age: 1 1955,64Y Sex: FEMALE Sonogrphr: Bella Diamond RVT Pat. Stat.:Inpatient Room: [address] Tape Vol: JJ, CPT - 4: 76676 Echo Event ID:[id number] Order ID: [id number] Reason for Study:Dizziness. PMH of HTN, CAD.Procedures: Colorflow, Grayscale/2D, Pulsed wave DopplerRace: C SUMMARY: PHYSICAL ASSESSMENT Blood Pulses Carotid Pressure Carotid Te mporal BruitRight ___ + + 0Left ___ + + 0CAROTID ARTERY SCANRIGHT: There is smooth intimal lining in the comm on carotid ,bulb,internal and external carotid artery. Colorflow is normal. LEF T: There is minimal intimal thickening in the common carotidartery. There is ca lcified plaque noted in the bulb extending into theproximal internal carotid art ross.The external carotid artery is clear.Colorflow is normal. PRELIMINARY FI NDINGS1. <50% stenosis of left internal carotid artery.PHYSICIAN INTERPRETATION Bilateral carotid duplex examination demonstrated atheroscleroticplaques in the left bulb. Less than 50% stenosis in the left internal carotid artery. Right sideis normal . FINDINGS: --Carotid Findings: Right Left Verteb.Fl w Antegrade Antegrade Subclavian Triphasic Triphasic -----MEASUREMENTS: DOPPLERRight CCA Dist CCA Dist PSV 94.3 cm/s CCA Dist EDV 23.4 cm/sRight CCA Mid CCA Mid PSV 110 cm/s CCA Mid EDV 23.4 cm/sRight CCA Prox CCA Prox PSV 122 cm/s CCA Prox EDV 17.5 c m/sRight ECA Prox ECA Prox PSV 106 cm/s ECA Prox EDV 13.6 cm/s Right ICA Dist ICA Dist PSV 90.3 cm/s ICA Dist EDV 27.3 cm/sRig ht ICA Mid ICA Mid PSV 60.3 cm/s ICA Mid EDV 21.9 cm/sRight I CA Prox ICA Prox PSV 58.1 cm/s ICA Prox EDV 16.4 cm/sRight Vert ebral Vertebral PSV 69.3 cm/s Vertebral EDV 22.5 cm/sRight Subcla vian Subclavian PSV 134 cm/s Left CCA Dist CCA Dist PSV 69.8 cm /s CCA Dist EDV 18 cm/sLeft CCA Mid CCA Mid PSV 108 cm/s CCA Mid EDV 25.4 cm/sLeft CCA Prox CCA Prox PSV 102 cm/s CCA Prox EDV 19.5 cm/sLeft ECA Prox ECA Prox PSV 77.5 cm/s ECA Prox EDV 14.1 cm/sLeft ICA Dist ICA Dist PSV 79.5 cm/s ICA Dist EDV 21.6 cm/sLeft ICA Mid ICA Mid PSV 80.1 cm/s ICA Mid EDV 27 cm/sLeft Vertebral Vertebral PSV 39.7 cm/s Vertebral EDV 13.2 cm/sLeft Subclavian Subclavian PSV 167 cm/s Left ICA Prox ICA Prox PSV 56.6 cm/s ICA Prox EDV 15.6 cm/sRight ICA/CCA Ratio ICA/CCA PSV 0.528 Left ICA/CCA Ratio ICA/CCA PSV 0.524 Signed 04/23/2020 05:00 PMMichaelsolt Kaye MD, RPVIReeds Spring Mormon Transthoracic Echocardiogram Complete, (w Contrast, Strain and 3D if needed) 2020-04-23 13:27:00Interface, Radiology Results In - 04/23/2020 1:30 PM TECHNICAL TRAINING SPECIALIST Echocardiography Report [address] [place] [address] Pat.Name: NEVAEH ARENAS Annabella.ID: [id number] .Date: 04/23/2020 Refer.MD: JH ZAMUDIO DO Exam Time: 10:51:00 AM Study Type:Routine Echo Height: 65in Weight: 205.57lb BSA: 2 m2 Age: 1 1955,64Y Sex: FEMALE BP: 127/74 HR: 64 bpm Sonogrphr: jacinto Pizarro. Stat.:[facility] Status:Final Echo Event ID:[id number] Order ID: [id number] Reason for Study:Hypertension - Initial eval of suspected hypertensiveheart diseaseHistory / Clinical:Hypertension Procedures: 2D Echo, Colorflow Doppler, Portable, Intravenous DefinityContrastRace: C SUMMARY: ---------Findings consistent with apical HCM. Consider CMR for furtherevaluation of LV hypertrophy and presence/extent of scar. ----FINDINGS: LV: LV size is normal. Ap ical hypertrophy is present. LV EF is hyperdynamic. Overall wall motion is hyperdynamic. Estimated EF is >70%.RV: RV size is normal. RV systolic function is normal.LA: LA volume is difficult to assess.RA: RA size is normal.AO: Aortic root diameter is normal.ROS: No pericardial effusion.SVn: Normal collapse of IVC during inspiration is consistent with normal RA pressure.AV: No structural AV abnormalities noted.MV: No structural MV abnormalities noted.PV: No structural PV abnormalities noted.TV: No structural TV abnormalities noted.Mcneal: LV relaxation is impaired.Other: Insufficient TR jet to estimate PA systolic pressure. MEASUREM ENTS: 2DPar asternal [place] Ao An 2.2 cm LVPWd 0.96 cm Ao Rtd 3.1 cm Index 1.6 cm/m2 LA Ds 3.6 cm IVSd 0.98 cm RWT 0.4 LVI Dd 4.8 cm Index 2.4 cm/m2 LV Mass 162 g (87-129)* LVIDs 2.7 cm LVM Index 81 g /m2 LV%fs 43 % LVOT 1.9 cm LVOT LVOT Area 2.8 cm2 DOPPLERLVOT For Flow LV OT TVI 35 cm LVOTpkPG 11 mmHg LVOTpkVel 164 cm/s LVOTmnPG 4.9 mmHgLVOT LVOT SV 99 ml SVi 50 ml/m2 Signed 04/23/2020 01:27 Herbert Pena M.D. [place] MethodistLactic acid level, SEPSIS - Now and repeat 2x every 3 hours 2020-04-22 07:00:28* Test Item Value Reference Range Interpretation Comments Lactic acid (test code = 47390-0) 2.7 mmol/L 0.5-2.2 H Lab Interpretation (test code = 57482-3) Abnormal [place] MethodistCOVID-19 qualitative [id number] 06:12:48* Test Item Value Reference Range Interpretation Comments Interpretation (test code = 1689808) Negative results do not preclude 2019-nCoV infection and should not be used as the sole basis for treatment or other patient management decisions. Negative results must be combined with clinical observations, patient history, and epidemiological information. COVID-19 qualitative PCR result (test code = 73841-5) Not-Detect ed Not-Detected COVID-19 qualitative PCR (test code = 7070) See link below for P DF Lab Report [place] [id number] 04:39:04* Test Item Value Reference Range Interpretation Comments Troponin (test code = 01966-8) 0.022 ng/mL 0-0.04 In patients suspected of having a myocardial infarction, along with all other appropriate clinical measures and actions including ECG and other diagnostics as appropriate, measure Ultra TnI at 0 hrs and at 3 hrs.Myocardial infarction VERY LIKELYThe 0 hr TnI level is > 0.10 ng/mL Errol cardial infarction LIKELYThe 0 hr TnI level is > 0.04 ng/mL and 3 hr level is increased or decreased by at least 0.020 ng/mL Myocardi al infarction VERY UNLIKELYBoth the 0 hr and 3 hr TnI levels <= 0.04 ng/mL(within normal limits) OR 0 hr is > 0.04 ng/mL and 3 hr is increased OR decreased by less than 0.020 ng/mL [place] MethodistLactic acid [id number] 04:18:40* Test Item Value Reference Range Interpretation Comments Lactic acid (test code = 07928-3) 2.3 mmol/L 0.5-2.2 H Lab Interpretation (test code = 58223-7) Abnormal [place] MethodistCreatine kinase, total (CPK)2020-04-21 21:18:06* Test Item Value Reference Range Interpretation Comments Creatine kinase (test code = 2157-6) 56 U/L 26-192 [facility] nat[facility] [id number] 21:06:58* Test Item Value Reference Range Interpretation Comments BNP (test code = 25660-7) 218 pg/mL 0-100 H Lab Interpretation (test code = 50976-5) Abnormal [place] MethodistPartial thromboplastin time, [id number] 21:04:02* Test Item Value Reference Range Interpretation Comments PTT (test code = 29229-0) 30.8 23.0- 36.0 sec PTT therapeutic range for unfractionated heparin is61.0-112.0 seconds which corresponds to Anti-Xa0.3-0.7 U/ml. [facility] TyleristProthrombin time with [id number] 21:03:23* Test Item Value Reference Range Interpretation Comments Prothrombin time (test code = 5902-2) 14.3 11.5- 14.5 sec INR (test code = 15156-5) 1.1 Th e International Normalized Ratio (INR) is a therapeutic monitoring tool for patients who are stable on oral anticoagulant therapy. An INR of 2.0-3.0 is suggested for deep vein thrombosis/pulmonary embolism. [facility]prehensive metabolic [id number] 21:01:19* Test Item Value Reference Range Interpretation Comments Sodium (test code = 2951-2) 139 135- 148 mEq/L Potassium (test code = 2823-3) 4.1 3.5- 5.0 mEq/L Chloride (test code = 2075-0) 101 98- 112 mEq/L CO2 (test code = 8-9) 24 24- 31 mEq/L Anion gap (test code = 79172-7) 14@ANIO 7- 15 mEq/L BUN (test code = 3094-0) 16 mg/dL 8-23 Creatinine (test code = 2160-0) 0.62 mg/dL 0.5-0.9 Glucose (test code = 2345-7) 166 mg/dL 65-99 H Calcium (test code = 92183-8) 9.4 mg/dL 8.8-10.2 Protein (test code = 2885-2) 8.2 g/dL 6.3-8.3 - 4.6- 7.0 g/dL1 week 4.4-7.6 g/dL7 months-1year 5.1-7.3 g/dL1-2 years 5.6-7.5 g/dL>3 years 6.0-8.0 g/wQ74-391 6.3-8.3 g/dL Albumin (test code = 1751-7) 3.3 g/dL 3.5-5 L A/G ratio (test code = 1759-0) 0.7 0.7-3.8 Alkaline phosphatase (test code = 6768-6) 164 U/L 35-104 H AST (test code = 1920-8) 77 U/L 10-35 H ALT (test code = 1742-6) 77 U/L 5-50 H Total bilirubin (test code = 1975-2) 0.4 mg/dL 0-1.2 Lab Interpretation (test code = 97493-8) Abnormal [facility] 1 Vw Cmnxqzvz2919-22-80 20:54:54Hm Interface, Radiology Results 04/21/2020 8:58 PM CDTEXAMINATION: XR CHEST 1 PORTABLECLINICAL HISTORY: SOBCOMPARISON: 02/26/2018.FINDINGS:One view of the chest demonstrates normal cardiomediastinal silhouette. Pulmonary vasculature is within normal limits.No consolidation or pleural effusion is seen. There is no evidence of pneumothorax.Regional osseous structures is unremarkable. IMPRESSION:No radiographic evidence of acute cardiopulmonary process or active d isease of the chest.[id number] Preliminary Interpretation - Not an Uieev5505-90-56 20:32:00* Test Item Value Reference Range Interpretation Comments LAY (test code = LAY) Jh Zamudio DO 04/22/2020 7:38 [facility] [place] Preliminary Interpretation - Not an OrderPerformed by: Jh Zamudio DOAuthorized by: Jh Zamudio DO ECG reviewed by ED Physician in the absence of a medical accounts receivable specialist: yes Interpretation: Interpretation: abnormal Rate: ECG rate: 61 ECG rate assessment: normal Rhythm: Rhythm: sinus rhythm QRS: QRS axis: Normal QRS intervals: NormalConduction: Conduction: normal ST segments: ST segments: Non-specificT waves: T waves: non-specific Lab Interpretation (test code = 59137-0) Abnormal [facility] [id number] 20:30:00 [facility] : 1955 Sex: F [facility] [address] [place] [address] Patient Name: NEVAEH ARENAS MR #: [id number] : 1955 Age/Sex: 64/F Req #: [id number] Adm Physician: RAJ MENDEZ MD O rdered by: RIZWANA LAYTON MD Report #: [id number] Lo cation: MED/SURG Room/Bed: 106-1 ____ Procedure: [id number] CT/CT CHEST W Exam Date: 04/20/20 Exam Time: 1949 REPORT STATUS: Signed EXAM: CT Chest WITH contrast (PE Protocol) INDICAT ION: DYSPNEA PE [id number] COMPARISON: Chest radiograph 04/19/2020 , CT abdomen/pelvis 11/19/2019 TECHNIQUE: Chest was scanned utilizing a mu ltidetector helical scanner from the lung apex through the level of the diaphr agm after administration of IV contrast. Thin section reconstructions were obt ained with special concentration on the pulmonary arteries. Coronal and sagitt al reformations were obtained. Pulmonary embolism protocol was performed. IV CONTRAST: 100 mL of Isovue 370 COMPLICATIONS: None RADIATION DOS E: Total DLP: 582.1 mGy*cm Estimated effective dose: (DLP x 0.014 x size factor) mSv CTDIvol has been reviewed. It is below the limits set by the Radiation Protocol Committee (RPC). Dose modulation, iterative reconstruction, and/or weight based adjustment of the mA/kV was utilized to re duce the radiation dose to as low as reasonably achievable. FINDINGS: LINES/ TUBES: None. LUNGS AND AIRWAYS: Right upper lobar and proximal se gmental arteries are obscured by streak artifact from dense IV contrast. No fi lling defect is identified within the remaining pulmonary arteries to the segm ental level. Peripheral subpleural groundglass opacities predominantly withi n the dependent lower lobes and to a lesser extent the lateral aspect of the b ilateral upper lobes are favored to represent some segmental atelectasis. Air ways are normal. PLEURA: The pleural spaces are clear. HEART AND MEDIA STINUM: The thyroid gland is normal. No mediastinal, hilar or axillary lympha denopathy. The heart is normal in size. There is no pericardial effusion. Th ere are subtle atherosclerotic calcifications in the aorta and coronary arteri es. Main pulmonary artery measures 2.9 cm in diameter and the ascending aorta measures 3.5 cm. UPPER ABDOMEN: Small gastroesophageal hiatal hernia. Red emonstrated cirrhotic liver morphology with simple cyst in the right hepatic d ome. Status post cholecystectomy surgical clips in the gallbladder fossa. Mindy ining visualized portions of the upper abdomen are unremarkable given limitati ons with timing of contrast bolus. BONES: No acute osseous abnormality. M ild multilevel degenerative changes of the thoracic spine. SOFT TISSUES: Dystrophic focal calcification within the subcutaneous fat at the level of T2- T3. IMPRESSION: 1. No pulmonary emboli given exam limitations with o bscured right upper lobar and proximal segmental arteries. 2. Subpleural gr oundglass opacities predominantly within the dependent lung bases and to a les ser extent the periphery of the upper lobes, favored to represent subsegmental atelectasis and developing infectious process is considered less likely. 3. Redemonstrated cirrhotic liver morphology. Signed by: Dr. Mildred Farrar M.D. on 04/20/2020 8:45 PM Dictated By: MILDRED FARRAR MD 44 Transcribed By: HOWIE on 2044 COPY TO: RIZWANA LAYTON MD Stress Test - Treadmill ONLY 2020-04-20 14:34:00 [facility] [place] [facility] : 1955 Sex: F [place] [address] Patient Name : NEVAEH ARENAS MR #: [id number] : 1955 Age/Sex: 64/F Acct # : [id number] Adm Physician : RAJ MENDEZ MD Admit Date : 03/24 02/09 Location : MED/SURG Room/Bed : [facility] REPORT: Myoview Stress Test DATE OF S TUDY: 04/20/2020 09:28:00 Stress Test - Treadmill ONLY EXERCISE NUC LEAR STRESS TEST.: PROCEDURES PERFORMED: 1. Exercise treadmill stres s testing. 2. Rest/stress nuclear SPECT scan/single photon emission computed t omographic imaging. INDICATION FOR STUDY: Chest pain. TECHNICAL DET AILS: After risks, benefits, pros and cons of today's exercise nuclear stress test explained to the patient, the patient agreed to proceed. The patient was brought down to the nuclear lab where she received an 11 mCi dose of technetium- 99m tetrofosmin intravenously and after 40 minutes, the patient was taken to the Physih[employer] SPECT camera for resting myocardial perfusion computed tomographic bill ging. Afterwards, the patient was then brought to the stress lab where 12-theresa d EKG monitoring and blood pressure monitoring were obtained. She exercised o n a Griffin protocol going from a baseline heart rate of 54 beats per minute to a maximum of 152 beats per minute, which is above our target heart rate of 133 beats per minute. Blood pressure went from baseline of 129/73 to a maximum of 177/80, which is an appropriate blood pressure response. Underlying EKG rev ealed normal sinus rhythm, normal axis, and peak exercise. There were ischemic EKG changes in the inferior and lateral leads up to 3 mm downsloping, which w as positive and she had chest pain at peak exercise. The protocol was termina claire after 8 minutes and 42 seconds of exercise and we had completed our target . At 8 minutes and 1 seconds of the exercise protocol and stage III at a heart rate of 152 beats per minute, she received a 29.5 millicurie dose of technetiu m-99m tetrofosmin intravenously and she was exercised for a bit more to circul ate the radioisotope. Afterwards, the patient was then taken to the SPECT cam era for stress myocardial perfusion imaging/stress single photon emission comp uted tomographic imaging. FINDINGS: 1. Resting myocardial perfusion i maging reveals largely normal tracer uptake. 2. Stress myocardial perfusion im aging reveals a moderate area of decreased uptake in the lateral and inferior lateral jackson not present at resting image. 3. The following gated measuremen ts were obtained: End-diastolic volume 87 mL, end systolic volume 31 mL, calc ulated left ventricular ejection fraction is 65% with normal wall motion. 4 . Exercise treadmill stress test portion was positive for ischemic EKG changes a nd chest pain symptoms. CONCLUSIONS: 1. Abnormal myocardial perfusi on imaging study revealing a moderate area of complete reversible uptake at th e lateral and inferolateral jackson. 2. Exercise treadmill stress test portion of the study is abnormal and is positive. 3. Normal left ventricular function with EF of 65%. 4. Overall findings of the stress test compatible with a moder ate risk stress test. MD APRIL Olivares/MELISSA /[id number] Signature Date Dictated By: ROSARIO STEPHENS MD Transcribed By: MELISSA on 04/20/20 <Electronically signed by ALONDRA STEPHENS MD>for ROSARIO STEPHENS MD<<Signature on File>>04/21/20 0943 COPY TO: CXR 1 VEW - [id number] 15:51:00 [facility] : 1955 Sex: F [facility] [address] [place], [place] [address] Patient Name: NEVAEH ARENAS MR #: [id number] : 1955 Age/Sex: 64/F Req #: [id number] Adm Physician: RAJ MENDEZ MD O rdered by: KEVYN JENKINS MD Report #: [id number] Location: [facility] Room/Bed: [place] [address] Procedure: [id number] [facility]: Exam Time: 1520 REPORT STATUS: Signed EXAM: CXR 1 - [facility] DATE: 03/24 3:20 PM COMPARISON: None FINDINGS: The trachea is midline. The lungs are symmetrically expanded without evidence for large focal consolid ation, pneumothorax, or significant pleural effusion. The cardiomediastinal silhouette and pulmonary vasculature are within normal limits. No acute osseo us abnormality is identified. The surrounding soft tissues are unremarkable. IMPRESSION: No acute cardiopulmonary process identified. Signed by: Dr. Navneet Gordon MD on 04/19/2020 3:52 PM Dictated By: NAVNEET GORDON MD 51 Transcribed By: HOWIE on 04/19/201551 COPY TO: KEVYN JENKINS MD CT ABDOMEN/PELVIS [id number] 17:58:00 [address], [place] [address] Patient Name: NEVAEH ARENAS MR #: [id number] : 1955 Age/Sex: 64/[id number] Req #: [id number] [facility] Physician: Ordered by: MARIA DOLORES KIDD MD Report #: [id number] Location: ER Room/Bed: Procedure: [id number] CT/CT ABDOMEN/P ROBERTO W Exam Date: 11/19/19 Exam Time: 1736 REPORT STATUS: Signed EXAMINATION: CT of the abdomen and pelvis with contrast. TECHNIQUE: Helical CT images of t he abdomen and pelvis were performed from the lung bases to the lesser trochan ters after the intravenous administration of 100 cc of Isovue 300 and the oral administration of none. Coronal and sagittal reformatted images were obtaine d. Dose modulation, iterative reconstruction, and/or weight based adjustment o f the mA/kV was utilized to reduce the radiation dose to as low as reasonably achievable. COMPARISON: None. CLINICAL HISTORY:Abdominal pain, cramp ing DISCUSSION: ABDOMEN/PELVIS: LOWER THORAX:Unremarkable. HEPATOBILIARY: Simple cyst at the dome of the liver. The liver has a nodular contour with enlargement of the caudate lobe. Cholecystectomy. SPLEEN: No splenomegaly. PANCREAS: No focal masses or ductal dilatation. AD RENALS: No adrenal nodules. KIDNEYS/URETERS: Few small cysts in the left ki dney. No enhancing lesion. PELVIC ORGANS/BLADDER: Bladder is unremarkable. Hysterectomy. No mass. PERITONEUM/RETROPERITONEUM: No free air or fluid. LYMPH NODES: No intra-abdominal, retroperitoneal, pelvic or inguinal lympha denopathy. VESSELS: The celiac trunk,superior and inferior mesenteric and b ilateral renal arteries are patent The portal, superior mesenteric and splen ic veins are patent. GI TRACT: No obstruction. Appendix normal. BONE S AND SOFT TISSUE: No bony destructive lesions. Fat-containing umbilical he rnia. IMPRESSION: No acute CT finding. Cirrhotic liver morpholog y. Small fat-containing umbilical hernia without complication. Signed by: Dr. Simón Garduno M.D. on 11/19/2019 6:01 PM Dictated By: SIMÓN BUNN MD 00 Trans cribed By: HOWIE on 11/19/191800 COPY TO: MARIA DOLORES KIDD MD CHEST SINGLE (PORTABLE)2019-11-19 17:57:00 [place] [address] Patient Name: NEVAEH ARENAS MR #: [id number] : 1955 Age/Sex: 64/F Req #: [id number] Adm Physician: Ordered by: MARIA DOLORES KIDD MD Report #: [id number] Location: ER Room/Bed: Procedure: [id number] DX/CHEST SINGLE (PORTABLE) Exam Date: 11/19/19 Exam Time: 1737 REPORT STATUS: Signed Examination: [place] AP view of the chest. COMPARISON: None. INDICATION: Abdominal pa in DISCUSSION: Lines/tubes: None. Lungs: The lungs are wel l inflated and clear. No pneumonia or pulmonary edema. Pleura: No pleural effusion or pneumothorax. Heart and mediastinum: The heart and the mediast inum are unremarkable. Bones and soft tissues: No acute bony abnormalities . IMPRESSION: 1. No acute cardiopulmonary abnormalities. Signed by: Dr. Simón Garduno M.D. on 11/19/2019 5:58 PM Dictated By: ANDREWS GARDUNO MD 57 COPY TO: MARIA DOLORES KIDD MD Creatine Kinase QP3692-19-13 15:32:00* Test Item Value Reference Range Interpretation Comments Creatine Kinase MB (test code = 36340-8) 1.80 0-5.0 [facility] HospitalTroponin L5223-80-67 15:32:00* Test Item Value Reference Range Interpretation Comments Troponin I (test code = DXQ9915) 0.011 0-0.300 [facility] HospitalCreatine Sgplul8349-52-59 15:29:00* Test Item Value Reference Range Interpretation Comments Creatine Kinase (test code = 2157-6) 52 29-168 [facility] HospitalWhite Blood Hxqvl1206-14-96 06:17:00* Test Item Value Reference Range Interpretation Comments White Blood Count (test code = 6690-2) 7.21 4.8-10.8 [facility] HospitalRed Blood Bdfzj1275-93-20 06:17:00* Test Item Value Reference Range Interpretation Comments Red Blood Count (test code = 789-8) 4.26 3.6-5.1 [facility] HospitalHemoglobin2018-09-14 06:17:00* Test Item Value Reference Range Interpretation Comments Hemoglobin (test code = 41922-4) 13.0 12.0-16.0 [facility] HospitalHematocrit2018-09-14 06:17:00* Test Item Value Reference Range Interpretation Comments Hematocrit (test code = 4544-3) 38.5 34.2-44.1 [facility] HospitalMean Corpuscular Pqipvp2532-96-13 06:17:00* Test Item Value Reference Range Interpretation Comments Mean Corpuscular Volume (test code = 787-2) 90.4 81-99 [facility] HospitalMean Corpuscular Jssqruvcmw0136-95-95 06:17:00* Test Item Value Reference Range Interpretation Comments Mean Corpuscular Hemoglobin (test code = 785-6) 30.5 28-32 [facility] HospitalMean Corpuscular Hemoglobin Concent 2018-03-06 06:17:00* Test Item Value Reference Range Interpretation Comments Mean Corpuscular Hemoglobin Concent (test code = 786-4) 33.8 31-35 [facility] HospitalRed Cell Distribution Vtteb3597-76-52 06:17:00* Test Item Value Reference Range Interpretation Comments Red Cell Distribution Width (test code = 54564-9) 13.3 11.7 -14.4 [facility] HospitalPlatelet Cwmwh8736-29-40 06:17:00* Test Item Value Reference Range Interpretation Comments Platelet Count (test code = 777-3) 182 140-360 [facility] HospitalNeutrophils (%) (Auto)2018-03-06 06:17:00 * Test Item Value Reference Range Interpretation Comments Neutrophils (%) (Auto) (test code = 68317-5) 53.8 38.7-80.0 [facility] HospitalLymphocytes (%) (Auto)2018-03-06 06:17:00 * Test Item Value Reference Range Interpretation Comments Lymphocytes (%) (Auto) (test code = 736-9) 35.8 18.0-39.1 [facility] HospitalMonocytes (%) (Auto)2018-03-06 06:17:00* Test Item Value Reference Range Interpretation Comments Monocytes (%) (Auto) (test code = 5905-5) 7.5 4.4-11.3 [facility] HospitalEosinophils (%) (Auto)2018-03-06 06:17:00 * Test Item Value Reference Range Interpretation Comments Eosinophils (%) (Auto) (test code = 713-8) 2.4 0.0-6.0 [facility] HospitalBasophils (%) (Auto)2018-03-06 06:17:00* Test Item Value Reference Range Interpretation Comments Basophils (%) (Auto) (test code = 706-2) 0.4 0.0-1.0 [facility] HospitalIM GRANULOCYTES %2018-03-06 06:17:00* Test Item Value Reference Range Interpretation Comments IM GRANULOCYTES % (test code = IM GRANULOCYTES %) 0.1 0.0- 1.0 [facility] HospitalNeutrophils # (Auto)2018-03-06 06:17:00* Test Item Value Reference Range Interpretation Comments Neutrophils # (Auto) (test code = 751-8) 3.9 2.1-6.9 [facility] HospitalLymphocytes # (Auto)2018-03-06 06:17:00* Test Item Value Reference Range Interpretation Comments Lymphocytes # (Auto) (test code = 44758-8) 2.6 1.0-3.2 [facility] HospitalMonocytes # (Auto)2018-03-06 06:17:00* Test Item Value Reference Range Interpretation Comments Monocytes # (Auto) (test code = 742-7) 0.5 0.2-0.8 [facility] HospitalEosinophils # (Auto)2018-03-06 06:17:00* Test Item Value Reference Range Interpretation Comments Eosinophils # (Auto) (test code = 711-2) 0.2 0.0-0.4 [facility] HospitalBasophils # (Auto)2018-03-06 06:17:00* Test Item Value Reference Range Interpretation Comments Basophils # (Auto) (test code = 704-7) 0.0 0.0-0.1 [facility] HospitalAbsolute Immature Granulocyte (auto 2018-03-06 06:17:00* Test Item Value Reference Range Interpretation Comments Absolute Immature Granulocyte (auto (sapna t code = Absolute Immature Granulocyte (auto) 0.01 0-0.1 [facility] HospitalProthrombin Bwvy9716-05-33 05:57:00* Test Item Value Reference Range Interpretation Comments Prothrombin Time (test code = 5902-2) 14.0 11.9-14.5 [facility] HospitalProthromb Time International Ratio 2018-03-06 05:57:00* Test Item Value Reference Range Interpretation Comments Prothromb Time International Ratio (test code = 6301-6) 1.17 Oral Anticoagulant Therapy INR Values:1. Low Intensity Therapy 1.5 - 2.02 . Moderate Intensity Therapy 2.0 - 3.03. High Intensity Therapy(1) 2.5 - 3. 54. High Intensity Therapy(2) 3.0 - 4.05. Panic Value INR > 5.0 [facility] HospitalActivated Partial Thromboplast Time 2018-03-06 05:57:00* Test Item Value Reference Range Interpretation Comments Activated Partial Thromboplast Time (test code = 63299-7) 27.9 23.8-35.5 [facility]odium Ufhfg1681-64-52 05:39:00* Test Item Value Reference Range Interpretation Comments Sodium Level (test code = 2951-2) 141 136-145 [facility] HospitalPotassium Ckbrm0357-01-15 05:39:00* Test Item Value Reference Range Interpretation Comments Potassium Level (test code = 2823-3) 4.1 3.5-5.1 [facility] HospitalChloride Nanhy8463-75-31 05:39:00* Test Item Value Reference Range Interpretation Comments Chloride Level (test code = 2075-0) 110 98-107 H [facility] HospitalCarbon Dioxide Korjy7060-41-67 05:39:00* Test Item Value Reference Range Interpretation Comments Carbon Dioxide Level (test code = 2028-9) 23 22-29 [facility] HospitalAnion Yrq4408-09-75 05:39:00* Test Item Value Reference Range Interpretation Comments Anion Gap (test code = 90960-5) 12.1 8-16 [facility] HospitalBlood Urea Bgpelugf6827-55-24 05:39:00* Test Item Value Reference Range Interpretation Comments Blood Urea Nitrogen (test code = 3094-0) 20 7-26 [facility] HospitalCreatinine2018-09-14 05:39:00* Test Item Value Reference Range Interpretation Comments Creatinine (test code = 2160-0) 0.67 0.57-1.11 [facility] HospitalBUN/Creatinine Xygyz0474-78-33 05:39:00* Test Item Value Reference Range Interpretation Comments BUN/Creatinine Ratio (test code = 3097-3) 30 6-25 H [facility] HospitalEstimat Glomerular Filtration Rate 2018-03-06 05:39:00* Test Item Value Reference Range Interpretation Comments Estimat Glomerular Filtration Rate (test code = 95638-7) 60- >60 Ranges were taken from the National Kidney Disease Education Program and the [facility] Kidney Foundation literature.Reference ranges:60 or greater: Cjjzcd04-44 ( for 3 consecutive months): Chronic kidney disease 15 or less: Kidney failureQuail Creek Surgical HospitalGlucose Cgrin9952-06-28 05:39:00* Test Item Value Reference Range Interpretation Comments Glucose Level (test code = TJH7645) 111 74-118 [facility] HospitalCalcium Xukpv1864-13-68 05:39:00* Test Item Value Reference Range Interpretation Comments Calcium Level (test code = 25996-6) 8.7 8.4-10.2 [facility] HospitalTotal Thbchhwyf2455-95-37 05:39:00* Test Item Value Reference Range Interpretation Comments Total Bilirubin (test code = 1975-2) 0.3 0.2-1.2 [facility] HospitalAspartate Amino Transf (AST/SGOT) 2018-03-06 05:39:00* Test Item Value Reference Range Interpretation Comments Aspartate Amino Transf (AST/SGOT) (test code = Aspartate Amino Transf (AST/SGOT)) 43 5-34 H [facility] HospitalAlanine Aminotransferase (ALT/SGPT) 2018-03-06 05:39:00* Test Item Value Reference Range Interpretation Comments Alanine Aminotransferase (ALT/SGPT) (test code = 1742-6) 71 0-55 H [facility] HospitalTotal Wfjiyob9075-48-34 05:39:00* Test Item Value Reference Range Interpretation Comments Total Protein (test code = 2885-2) 7.0 6.5-8.1 [facility] HospitalAlbumin2018-09-14 05:39:00* Test Item Value Reference Range Interpretation Comments Albumin (test code = 1751-7) 3.2 3.5-5.0 L [facility] HospitalGlobulin2018-09-14 05:39:00* Test Item Value Reference Range Interpretation Comments Globulin (test code = 02565-2) 3.8 2.3-3.5 H [facility] HospitalAlbumin/Globulin Hvtko7271-52-37 05:39:00 * Test Item Value Reference Range Interpretation Comments Albumin/Globulin Ratio (test code = 1759-0) 0.8 0.8-2.0 [facility] HospitalAlkaline Vyvndmulhei7092-55-56 05:39:00* Test Item Value Reference Range Interpretation Comments Alkaline Phosphatase (test code = 6768-6) 117 40-150 [facility] HospitalTriglycerides Sgtht1038-94-06 19:07:00* Test Item Value Reference Range Interpretation Comments Triglycerides Level (test code = 2571-8) 170 0-149 H [facility] HospitalCholesterol Ytdqf1711-35-17 19:07:00* Test Item Value Reference Range Interpretation Comments Cholesterol Level (test code = 2093-3) 195 0-199 Less than 200 mg/dL Low Rivu063 - 239 mg/dL Borderline Zlfn712 m g/dl and greater High Risk [facility] HospitalLDL Fxflpgmwoui1050-63-04 19:07:00* Test Item Value Reference Range Interpretation Comments LDL Cholesterol (test code = 2089-1) 107 60-130 [facility] HospitalHDL Sxxvbbzhgpo8518-93-41 19:07:00* Test Item Value Reference Range Interpretation Comments HDL Cholesterol (test code = 2085-9) 54 40-60 [facility] HospitalCholesterol/HDL Pmijj8686-88-15 19:07:00 * Test Item Value Reference Range Interpretation Comments Cholesterol/HDL Ratio (test code = 9830-1) 3.6 3.0-3.6 [facility] HospitalCHEST 2 HYZKM8083-54-47 18:52:00 [facility] [address] [place] [address] Patient Name: NEVAEH ARENAS MR #: [id number] : 0 1955 Age/Sex: 62/F Req #: [id number] Adm Physician: RAJ MENDZE MD Ordered by: RAJ MENDEZ MD Report #: [id number] Locatio n: IMCU Room/Bed: [facility] 176-1 Procedure: [id number] DX/ CHEST 2 VIEWS Exam Date: 03/05/18 Exam Time: 1829 REPORT STATUS: Signed EXAMINATION: CHEST 2 VIEWS [...] acute thoracic abnormality. Sign ed by: Dr. Marjorie Gonzalez M.D. on 03/05/2018 6:52 PM Dictated By : MARJORIE GONZALEZ MD 51 Transcribed By: HOWIE on 03/05/181851 COPY TO: RAJ CERNA MD
--- OUTSIDE RECORDS SUMMARY | 2020-04-27 17:32 | XMS REPORT | Continuity of Care Document ---
Author Author [facility] t Organization [facility] Address [address] [place] [address] [address] [place] [address] Phone Unavailable Care Team Providers Care Forestry Professor Name Role Phone RAJ MENDEZ MD PCP Rehrer Henry ARREOLA Attphys Max Voss MD Attphys Vince Delaney MD Attphys RAJ MENDEZ Attphys Unavailable Lara KIDD Attphys Unavailable ZANE VOSS Admphys Unavailable RAJ MENDEZ Admphys Unavailable Payers Payer Name Policy Type Policy Number Effective Date Expiration Date S tiffanie [facility] CHOICE/CHOICE [id number] 2019-PresentHMO/ PPO [id number] 2019 00:00:00 Johny Wood Problems Condition Name [...] meter kit 2020-04-25 00:00:00 2021-04-25 23:59:00 Elpidio nevarez Check blood sugars q. a.m. Johny mcfarlane [...] asc) 5 Mg Tab Yes 5 Daily [facility] Aspirin (Aspir 81) 81 Mg Tablet. Aspirin (Aspir 81) 81 Mg Tablet.dr Tracy [facility] Metoprolol Succinate 50 Mg Tab.er.24h Metoprolol Succinate 50 Mg Ta b.er.24h Yes 50 Daily [facility] Immunizations Ordered Immunization Name Filled Immunization Name [...] LACTIC ACID LEVEL 2020-04-22 03:00:00 Zane Voss [place] thodist LACTIC ACID LEVEL, SEPSIS - NOW [...] ECG ED PRELIMINARY INTERPRETATION 2020-04-21 20:32:00 Re[facility]rer, [facility] Henry Johny Wood COVID-19 QUALITATIVE PCR 2020-04-21 20:17:00 Rehrer, Jh Henry Wood HC COMPLETE BLD COUNT W/AUTO DIFF 2020-04-21 20:17:00 Re[facility]rer, [facility] Henryjayesh Wood PROTHROMBIN TIME WITH INR 2020-04-21 20:17:00 Rehrer, Jh Wood PARTIAL THROMBOPLASTIN TIME (PTT) 2020-04-21 20:17:00 Re[facility]rer, [facility] Henry Johny Wood PHOSPHORUS LEVEL 2020-04-21 20:17:00 Rehrer, Jh Wood LACTIC ACID LEVEL, SEPSIS - NOW AND REPEAT 2X EVERY 3 HOURS 2020-04-21 20:17:00 Rehrer, Jh Henry Wood CREATINE KINASE, TOTAL (CPK) 2020-04-21 20:17:00 Rehrer, Jh Wood B NATRIURETIC PEPTIDE 2020-04-21 20:17:00 Rehrer, Jh Henry Wood TROPONIN 2020-04-21 20:17:00 Rehrer, Jh Henry Wood COMPREHENSIVE METABOLIC PANEL 2020-04-21 20:17:00 Rehrer, Jh Wood MAGNESIUM LEVEL 2020-04-21 20:17:00 Rehrer, Jh Wood ESTIMATED GFR 2020-04-21 20:17:00 Rehrer, Jh Henry Wood ECG 12-LEAD 2020-04-21 19:50:11 Rehrer, Jh Wood X-ray of chest, two views 2018-03-05 00:00:00 RAJ MENDEZ CH, I [facility] Plan of Care Planned Activity Planned Date [...] gnant neoplasm of cervix (procedure) [code = 577692543] Johny Mcmahon Encounters Start Date/Time End Date/Time Encounter Type Admission Type Attendi [facility] Care Department Encounter ID Source 2020-04-21 00:00:00 2020-04-25 00:00:00 Inpatient ZANE VOSS [facility] [id number] Johny Wood 2018-03-05 17:00:00 2018-03-06 18:56:00 Discharged Inpatient (obs) 3 AVNESSA, RAJ [facility] [id number] [facility] Results Test Description Test Time Test Comments Results Result Comments Source POC glucose 2020-04-25 17:10:07 Test Item POC glucose (test code = 11784-6) 156 mg/dL 65-99 H Sash Installer Name: Ziggy Garcia ID: [id number]: [facility] Notified electric shovel operator Interpretation (test code = 69381-2) [facility]normal [facility] wjnnftpdx0194-58-06 15:26:15Procedure Details:The patient was brought to the [...] disease Right Dominant Circulation [facility] MethodistECG 12 bklh9890-86-11 10:57:40* Test Item Value Reference Range Interpretation Comments Ventricular rate (test code = 253) 61 Atrial rate (test code = 255) 61 NE interval (test code = 266) 162 QRSD [...] of 26-FEB-2018 17:59,-No significant change was found- Berne MethodistHemoglobin E5p1474-23-08 10:07:19* Test Item Value Reference Range Interpretation Comments Hemoglobin A1C (test code = 23912-8) 7.6 % 4-5.6 H HbA1c cutoffs for diagnosing diabetes:4.0% - 5.6% = normal5.7% - 6.4% = increased risk for diabetes (prediabetes)9>=6.5% = raatsgkg2Kddwd for glycemic control (ADA 2016)< 7.0% Target for non adults with diabetes. More or less stringent targets may be appropriate for individual patients. <7.5% Target for Children and adolescents with type 1 diabetes. LAY (test code = LAY) A1C added and read back to Rohan Guardado in A8 04/24/2020 07:43 LMID. Lab Interpretation (test code = 91124-7) Abnormal [place] MethodistThyroid stimulating bfbvada0595-55-26 06:25:45* Test Item Value Reference Range Interpretation Comments TSH (test code = 3016-3) 3.30 0.27- 4.20 uIU/mL Berne MethodistBasic metabolic hoofw7735-77-74 06:21:06* Test Item Value Reference Range Interpretation Comments Sodium (test code = 2951-2) 140 135- 148 mEq/L Potassium (test code = 2823-3) 4.1 3.5- 5.0 mEq/L Chloride (test code = 2074-0) 104 98- 112 mEq/L CO2 (test code = 2027-) 23 24- 31 mEq/L L Anion gap (test code = 95416-4) 13@ANIO 7- 15 mEq/L BUN (test code = 3094-0) 16 mg/dL 8-23 Creatinine (test code = 2160-0) 0.60 mg/dL 0.5-0.9 Glucose (test code = 2345-7) 156 mg/dL 65-99 H Calcium (test code = 24420-4) 8.8 mg/dL 8.8-10.2 Lab Interpretation (test code = 74757-7) Abnormal [place] MethodistLipid foppq9261-42-50 06:21:06* Test Item Value Reference Range Interpretation Comments Cholesterol (test code = 3-3) 147 mg/dL <200 Triglycerides (test code = 2571-8) 116 mg/dL <150 HDL cholesterol (test code = 2084-9) 48 mg/dL >40 LDL cholesterol (test code = 2088-1) 88 mg/dL <100 Result obtained by direct LDL measurement Lipid panel interpretation (test code = 42374-3) SeeBelow Total Cholesterol (mg/dL) <200 Desirable 200-239 [...] therapy in personswith high triglycerides (>=200 mg/dL) [facility] MethodistMagnesium svhsu3874-87-85 06:21:05* Test Item Value Reference Range Interpretation Comments Magnesium (test code = 85267-4) 1.9 mg/dL 1.6-2.4 Johny MethodistPhosphorus dqhsc8444-37-10 06:21:04* Test Item Value Reference Range Interpretation Comments Phosphorus (test code = 2777-1) 3.4 mg/dL 2.4-4.5 Johny MethodistEstimated VUE5113-25-46 06:21:04* Test Item Value Reference Range Interpretation Comments Estimated GFR (test code = 5488) >=90 mL/min/1.73 m2 Catergory Units InterpretationG1 >=90 Normal or highG2 60-89 Mildly gnncwzhxcL5f 45-59 Mildly to moderately sqgowlsgvP1n 30-44 Moderately to severely decreasedG4 15-29 Severely decreasedG5 <15 Kidney failureThe eGFR was calculated using the Chronic Kidney Disease Epidemiology Collaboration (CKD-EPI) equation. Interpretation is based on recommendations of the National Kidney Foundation-Kidney Disease Outcomes Quality Initiative (NKF-KDOQI) published in 2014. Johny MethodistCBC with platelet and esmnfommmbgt3623-77-98 05:54:00* Test Item Value Reference Range Interpretation Comments WBC (test code = 51818-9) 7.05 4.50- 11.00 k/uL RBC (test code = 52907-6) 4.12 m/uL 4.2-5.5 L HGB (test code = 718-7) 12.5 g/dL 12-16 HCT (test code = 4544-3) 37.5 % 37-47 MCV (test code = 787-2) 91.0 fL 82-100 MCH (test code = 785-6) 30.3 pg 27-34 MCHC (test code = 786-4) 33.3 g/dL 31-37 RDW - SD (test code = 24352-1) 44.6 fL 37-55 MPV (test code = 37298-1) 11.8 fL 8.8-13.2 Platelet count (test code = 00086-5) 182 150- 400 k/uL Nucleated RBC (test code = 41749-2) 0.00 /100 WBC Neutrophils (test code = 97126-4) 45.3 % 39-69 Lymphocytes (test code = 72549-8) 43.0 % 25-45 Monocytes (test code = 33521-9) 8.1 % 0-10 Eosinophils (test code = 00817-4) 2.7 % 0-5 Basophils (test code = 66398-8) 0.6 % 0-1 Immature granulocytes (test code = 04709-7) 0.3 % 0-1 "Immature granulocytes" (promyelocytes, myelocytes, metamyelocytes) Lab Interpretation (test code = 33409-3) Abnormal [facility] MethodistUs carotid mfpwkh6989-86-54 17:00:00Interface, Radiology Results In - 04/23/2020 5:01 PM [facility] Vascular Ultrasound Laboratory Carotid Artery Duplex Report [address] [address], [place] [address] For bottle house quality control technician purposes, the categorization of the degree of the stenosis of this exam is based on criteria described in the IAC carotid stenosis grading white paper( www.intersocietal.org/Vascular) and Rafa Mooney, Svetlana Romero, et al. Carotid artery stenosis: tran-scale and Doppler US diagnosis--Society of Radiologists in Ultrasound Consensus C onference. Radiology. 2003 Nov; 229(2):340-6. Pat.Name: NEVAEH ARENAS Annabella.ID: [id number] .Date: 04/23/2020 Refer.MD: ZANE VOSS MD Exam Time: 2:31:00 PM Study Type:Carotid Height: 65in Weight: 206lb BSA: 2 m2 Age: 1 1955,64Y Sex: FEMALE Sonogrphr: Bella Diamond RVT Pat. Stat.:Inpatient Room: [address] Tape Vol: JJ, CPT - 4: 22336 Echo Event ID:[id number] Order ID: [id number] Reason for Study:Dizziness. PMH of HTN, CAD.Procedures: [...] 0.524 Signed 04/23/2020 05:00 PMMichaelsolt Kaye MD, RPVIBerne Gnosticist Transthoracic Echocardiogram Complete, (w Contrast, Strain and 3D if needed) 2020-04-23 13:27:00Interface, Radiology Results In - 04/23/2020 1:30 PM ADMINISTRATIVE PERSONAL ASSISTANT Echocardiography Report [address] [place] [address] Pat.Name: NEVAEH ARENAS Annabella.ID: [id number] .Date: 04/23/2020 Refer.MD: JH ZAMUDIO DO Exam Time: 10:51:00 AM Study Type:Routine Echo Height: 65in Weight: 205.57lb BSA: 2 m2 Age: 1 1955,64Y Sex: FEMALE BP: 127/74 HR: 64 bpm Sonogrphr: jacinto Pizarro. Stat.:[facility]:Final [facility] Event ID:[id number] Order ID: [id number] Reason for Study:Hypertension - Initial eval of [...] systolic pressure. MEASUREM ENTS: 2DPar asternal Long Carmen Ao An 2.2 cm LVPWd 0.96 cm [...] ml/m2 Signed 04/23/2020 01:27 Herbert Pena M.D. [place] MethodistLactic acid level, SEPSIS - Now and repeat 2x every 3 hours 2020-04-22 07:00:28* Test Item Value Reference Range Interpretation Comments Lactic acid (test code = 62074-1) 2.7 mmol/L 0.5-2.2 H Lab Interpretation (test code = 24161-8) Abnormal [place] MethodistCOVID-19 qualitative MZQ7445-85-27 06:12:48* Test Item Value Reference Range Interpretation Comments Interpretation (test code = 8335316) Negative results do not preclude 2019-nCoV infection and should not be used as the sole basis for treatment or other patient management decisions. Negative results must be combined with clinical observations, patient history, and epidemiological information. COVID-19 qualitative PCR result (test code = 92316-5) Not-Detect ed Not-Detected COVID-19 qualitative PCR (test code = 7070) See link below for P DF Lab Report Berne IqyvfkprmErlarleg1220-31-01 04:39:04* Test Item Value Reference Range Interpretation Comments Troponin (test code = 53602-7) 0.022 ng/mL 0-0.04 In patients suspected of [...] OR decreased by less than 0.020 ng/mL Berne MethodistLactic acid vpnrg7475-47-26 04:18:40* Test Item Value Reference Range Interpretation Comments Lactic acid (test code = 13333-2) 2.3 mmol/L 0.5-2.2 H Lab Interpretation (test code = 65312-6) Abnormal [place] MethodistCreatine kinase, total (CPK)2020-04-21 21:18:06* Test Item Value Reference Range Interpretation Comments Creatine kinase (test code = 2157-6) 56 U/L 26-192 [facility] nat[facility]uretic aeeolzm1191-85-40 21:06:58* Test Item Value Reference Range Interpretation Comments BNP (test code = 62330-1) 218 pg/mL 0-100 H Lab Interpretation (test code = 21550-4) Abnormal [place] MethodistPartial thromboplastin time, snwurbpxm1075-16-71 21:04:02* Test Item Value Reference Range Interpretation Comments PTT (test code = 69521-1) 30.8 23.0- 36.0 sec PTT therapeutic range for unfractionated heparin is61.0-112.0 seconds which corresponds to Anti-Xa0.3-0.7 U/ml. [facility] CenteristProthrombin time with WDY7144-15-48 21:03:23* Test Item Value Reference Range Interpretation Comments Prothrombin time (test code = 5902-2) 14.3 11.5- 14.5 sec INR (test code = 94975-8) 1.1 Th e International Normalized Ratio (INR) is a therapeutic monitoring tool for patients who are stable on oral anticoagulant therapy. An INR of 2.0-3.0 is suggested for deep vein thrombosis/pulmonary embolism. [facility] [place] [facility] CenterComprehensive metabolic rhkep0591-97-00 21:01:19* Test Item Value Reference Range Interpretation Comments Sodium (test code = 2951-2) 139 135- 148 mEq/L Potassium (test code = 2823-3) 4.1 3.5- 5.0 mEq/L Chloride (test code = 2075-0) 101 98- 112 mEq/L CO2 (test code = 8-9) 24 24- 31 mEq/L Anion gap (test code = 24662-0) 14@ANIO 7- 15 mEq/L BUN (test code = 3094-0) 16 mg/dL 8-23 Creatinine (test code = 2160-0) 0.62 mg/dL 0.5-0.9 Glucose (test code = 2345-7) 166 mg/dL 65-99 H Calcium (test code = 99581-9) 9.4 mg/dL 8.8-10.2 Protein (test code = 2885-2) 8.2 g/dL 6.3-8.3 - 4.6- 7.0 g/dL1 week 4.4-7.6 g/dL7 months-1year 5.1-7.3 g/dL1-2 years 5.6-7.5 g/dL>3 years 6.0-8.0 g/yD11-640 6.3-8.3 g/dL Albumin (test code = 1751-7) 3.3 g/dL 3.5-5 L A/G ratio (test code = 1759-0) 0.7 0.7-3.8 Alkaline phosphatase (test code = 6768-6) 164 U/L 35-104 H AST (test code = 1920-8) 77 U/L 10-35 H ALT (test code = 1742-6) 77 U/L 5-50 H Total bilirubin (test code = 1975-2) 0.4 mg/dL 0-1.2 Lab Interpretation (test code = 59535-5) Abnormal [facility]clain MethodistXR Chest 1 Vw Dlukwaci5077-49-11 20:54:54Hm Interface, Radiology Results 04/21/2020 8:58 PM [...] MethodistECG ED Preliminary Interpretation - Not an Ihxes0880-17-87 20:32:00* Test Item Value Reference Range Interpretation Comments LAY (test code = LAY) Jh Zamudio DO 04/22/2020 7:38 [facility] Preliminary Interpretation - Not an OrderPerformed by: Jh Zamudio DOAuthorized by: Jh Zamudio DO ECG reviewed by ED Physician in the absence of a lath hand: yes Interpretation: Interpretation: abnormal Rate: ECG rate: 61 ECG rate assessment: normal Rhythm: Rhythm: sinus rhythm QRS: QRS axis: Normal QRS intervals: NormalConduction: Conduction: normal ST segments: ST segments: Non-specificT waves: T waves: non-specific Lab Interpretation (test code = 73922-4) Abnormal [place] MethodistWI CHEST G5016-35-86 20:30:00 [facility] : 1955 Sex: F [facility] [address] [place] [address] Patient Name: NEVAEH ARENAS MR #: [id number] : 1955 Age/Sex: 64/F Req #: [id number] Adm Physician: RAJ MENDEZ MD O rdered by: RIZWANA LAYTON MD Report #: [id number] Lo cation: MED/SURG Room/Bed: 106-1 ____ Procedure: [id number] CT/CT CHEST W Exam Date: 04/20/20 Exam [...] Test - Treadmill ONLY 2020-04-20 14:34:00 [facility] : 1955 Sex: F [address] [place] [address] Patient Name : NEVAEH ARENAS MR #: [id number] : 1955 Age/Sex: 64/F Acct # : [id number] Adm Physician : RAJ MENDEZ MD Admit Date : 03/24 02/09 Location : MED/SURG Room/Bed : [facility] REPORT: Myoview Stress Test DATE OF S [...] minutes, the patient was taken to the Fur and Mask SPECT camera for resting myocardial perfusion computed [...] ate risk stress test. MD APRIL Olivares/MELISSA /[id number] Signature Date Dictated By: ROSARIO STEPHENS MD Transcribed By: MELISSA on 04/20/20 <Electronically signed by ALONDRA STEPHENS MD>for ROSARIO STEPHENS MD<<Signature on File>>04/21/20 0943 COPY TO: CXR 1 VEW - COCS9984-92-00 15:51:00 [facility] : 1955 Sex: F [facility] [address] [place], [place] [address] Patient Name: NEVAEH ARENAS MR #: [id number] : 1955 Age/Sex: 64/F Req #: [id number] Adm Physician: RAJ MENDEZ MD O rdered by: KEVYN JENKINS MD Report #: [id number] Location: [facility] Room/Bed: [address] [place] [address] Procedure: [id number] [facility] Date: Exam Time: 1520 REPORT STATUS: Signed EXAM: CXR 1 - [facility] DATE: 03/24 3:20 PM COMPARISON: None [...] COPY TO: KEVYN JENKINS MD CT ABDOMEN/PELVIS C1101-78-01 17:58:00 [address], [place] [address] Patient Name: NEVAEH ARENAS MR #: [id number] : 1955 Age/Sex: 64[id number] Req #: [id number] [facility] Physician: Ordered by: MARIA DOLORES KIDD MD Report #: [id number] Location: ER Room/Bed: Procedure: [id number] CT/CT ABDOMEN/P ROBERTO W Exam Date: 11/19/19 [...] DOLORES KIDD MD CHEST SINGLE (PORTABLE)2019-11-19 17:57:[address] [address] Patient Name: NEVAEH ARENAS MR #: [id number] : 1955 Age/Sex: 64/F Req #: [id number] Adm Physician: Ordered by: MARIA DOLORES KIDD MD Report #: [id number] Location: ER Room/Bed: Procedure: [id number] DX/CHEST SINGLE (PORTABLE) Exam Date: 11/19/19 Exam [...] TO: MARIA DOLORES KIDD MD Creatine Kinase WE0985-16-25 15:32:00* Test Item Value Reference Range Interpretation Comments Creatine Kinase MB (test code = 75034-7) 1.80 0-5.0 [facility] ChildrenTroponin U1656-80-55 15:32:00* Test Item Value Reference Range Interpretation Comments Troponin I (test code = LXX1674) 0.011 0-0.300 [facility] ChildrenCreatine Lcgbbv6550-26-15 15:29:00* Test Item Value Reference Range Interpretation Comments Creatine Kinase (test code = 2157-6) 52 29-168 [facility] ChildrenWhite Blood Uobns3294-75-40 06:17:00* Test Item Value Reference Range Interpretation Comments White Blood Count (test code = 6690-2) 7.21 4.8-10.8 [facility] ChildrenRed Blood Jzfnh3796-04-31 06:17:00* Test Item Value Reference Range Interpretation Comments Red Blood Count (test code = 789-8) 4.26 3.6-5.1 [facility] ChildrenHemoglobin2018-09-14 06:17:00* Test Item Value Reference Range Interpretation Comments Hemoglobin (test code = 96116-3) 13.0 12.0-16.0 [facility] ChildrenHematocrit2018-09-14 06:17:00* Test Item Value Reference Range Interpretation Comments Hematocrit (test code = 4544-3) 38.5 34.2-44.1 [facility] ChildrenMean Corpuscular Sjpzgx8123-34-60 06:17:00* Test Item Value Reference Range Interpretation Comments Mean Corpuscular Volume (test code = 787-2) 90.4 81-99 [facility] ChildrenMean Corpuscular Oayjzmlvvb0940-50-80 06:17:00* Test Item Value Reference Range Interpretation Comments Mean Corpuscular Hemoglobin (test code = 785-6) 30.5 28-32 [facility] ChildrenMean Corpuscular Hemoglobin Concent 2018-03-06 06:17:00* Test Item Value Reference Range Interpretation Comments Mean Corpuscular Hemoglobin Concent (test code = 786-4) 33.8 31-35 [facility] ChildrenRed Cell Distribution Gfeti1235-26-25 06:17:00* Test Item Value Reference Range Interpretation Comments Red Cell Distribution Width (test code = 75852-4) 13.3 11.7 -14.4 [facility] ChildrenPlatelet Dhiwq9707-27-34 06:17:00* Test Item Value Reference Range Interpretation Comments Platelet Count (test code = 777-3) 182 140-360 [facility] ChildrenNeutrophils (%) (Auto)2018-03-06 06:17:00 * Test Item Value Reference Range Interpretation Comments Neutrophils (%) (Auto) (test code = 72535-7) 53.8 38.7-80.0 [facility] ChildrenLymphocytes (%) (Auto)2018-03-06 06:17:00 * Test Item Value Reference Range Interpretation Comments Lymphocytes (%) (Auto) (test code = 736-9) 35.8 18.0-39.1 [facility] ChildrenMonocytes (%) (Auto)2018-03-06 06:17:00* Test Item Value Reference Range Interpretation Comments Monocytes (%) (Auto) (test code = 5905-5) 7.5 4.4-11.3 [facility] ChildrenEosinophils (%) (Auto)2018-03-06 06:17:00 * Test Item Value Reference Range Interpretation Comments Eosinophils (%) (Auto) (test code = 713-8) 2.4 0.0-6.0 [facility] ChildrenBasophils (%) (Auto)2018-03-06 06:17:00* Test Item Value Reference Range Interpretation Comments Basophils (%) (Auto) (test code = 706-2) 0.4 0.0-1.0 [facility] ChildrenIM GRANULOCYTES %2018-03-06 06:17:00* Test Item Value Reference Range Interpretation Comments IM GRANULOCYTES % (test code = IM GRANULOCYTES %) 0.1 0.0- 1.0 [facility] ChildrenNeutrophils # (Auto)2018-03-06 06:17:00* Test Item Value Reference Range Interpretation Comments Neutrophils # (Auto) (test code = 751-8) 3.9 2.1-6.9 [facility] ChildrenLymphocytes # (Auto)2018-03-06 06:17:00* Test Item Value Reference Range Interpretation Comments Lymphocytes # (Auto) (test code = 56611-9) 2.6 1.0-3.2 [facility] ChildrenMonocytes # (Auto)2018-03-06 06:17:00* Test Item Value Reference Range Interpretation Comments Monocytes # (Auto) (test code = 742-7) 0.5 0.2-0.8 [facility] ChildrenEosinophils # (Auto)2018-03-06 06:17:00* Test Item Value Reference Range Interpretation Comments Eosinophils # (Auto) (test code = 711-2) 0.2 0.0-0.4 [facility] ChildrenBasophils # (Auto)2018-03-06 06:17:00* Test Item Value Reference Range Interpretation Comments Basophils # (Auto) (test code = 704-7) 0.0 0.0-0.1 [place] [facility] ChildrenAbsolute Immature Granulocyte (auto 2018-03-06 06:17:00* Test Item Value Reference Range Interpretation Comments Absolute Immature Granulocyte (auto (sapna t code = Absolute Immature Granulocyte (auto) 0.01 0-0.1 [place] [facility] ChildrenProthrombin Pdou7458-09-32 05:57:00* Test Item Value Reference Range Interpretation Comments Prothrombin Time (test code = 5902-2) 14.0 11.9-14.5 [place] [facility] for ChildrenProthromb Time International Ratio 2018-03-06 05:57:00* Test Item Value Reference Range Interpretation Comments Prothromb Time International Ratio (test code = 6301-6) 1.17 Oral Anticoagulant Therapy INR Values:1. Low Intensity Therapy 1.5 - 2.02 . Moderate Intensity Therapy 2.0 - 3.03. High Intensity Therapy(1) 2.5 - 3. 54. High Intensity Therapy(2) 3.0 - 4.05. Panic Value INR > 5.0 [facility] for ChildrenActivated Partial Thromboplast Time 2018-03-06 05:57:00* Test Item Value Reference Range Interpretation Comments Activated Partial Thromboplast Time (test code = 35768-3) 27.9 23.8-35.5 [facility] Zcajp1806-82-68 05:39:00* Test Item Value Reference Range Interpretation Comments Sodium Level (test code = 2951-2) 141 136-145 [facility] ChildrenPotassium Ctlhn9056-70-05 05:39:00* Test Item Value Reference Range Interpretation Comments Potassium Level (test code = 2823-3) 4.1 3.5-5.1 [place] [facility] ChildrenChloride Ldawj9776-35-27 05:39:00* Test Item Value Reference Range Interpretation Comments Chloride Level (test code = 2075-0) 110 98-107 H [facility] ChildrenCarbon Dioxide Ahbwz0019-90-97 05:39:00* Test Item Value Reference Range Interpretation Comments Carbon Dioxide Level (test code = 2028-9) 23 22-29 [facility] for ChildrenAnion Tlo9177-19-57 05:39:00* Test Item Value Reference Range Interpretation Comments Anion Gap (test code = 21292-3) 12.1 8-16 [facility] ChildrenBlood Urea Zzagqbfq1046-45-03 05:39:00* Test Item Value Reference Range Interpretation Comments Blood Urea Nitrogen (test code = 3094-0) 20 7-26 [facility] ChildrenCreatinine2018-09-14 05:39:00* Test Item Value Reference Range Interpretation Comments Creatinine (test code = 2160-0) 0.67 0.57-1.11 [facility] ChildrenBUN/Creatinine Crmnd7858-42-58 05:39:00* Test Item Value Reference Range Interpretation Comments BUN/Creatinine Ratio (test code = 3097-3) 30 6-25 H [place] [facility] for ChildrenEstimat Glomerular Filtration Rate 2018-03-06 05:39:00* Test Item Value Reference Range Interpretation Comments Estimat Glomerular Filtration Rate (test code = 69777-4) 60- >60 Ranges were taken from the National Kidney Disease Education Program and the [facility] UCLAal Kidney Foundation literature.Reference ranges:60 or greater: Dtketq65-19 ( for 3 consecutive months): Chronic kidney disease 15 or less: Kidney failureTexas [facility] Rite Hospital for ChildrenGlucose Odbpo2839-78-83 05:39:00* Test Item Value Reference Range Interpretation Comments Glucose Level (test code = DKK7636) 111 74-118 [facility] for ChildrenCalcium Bcnrc7738-30-96 05:39:00* Test Item Value Reference Range Interpretation Comments Calcium Level (test code = 32467-3) 8.7 8.4-10.2 [facility] ChildrenTotal Uszrboezk8697-38-15 05:39:00* Test Item Value Reference Range Interpretation Comments Total Bilirubin (test code = 1975-2) 0.3 0.2-1.2 [facility] ChildrenAspartate Amino Transf (AST/SGOT) 2018-03-06 05:39:00* Test Item Value Reference Range Interpretation Comments Aspartate Amino Transf (AST/SGOT) (test code = Aspartate Amino Transf (AST/SGOT)) 43 5-34 H [facility] ChildrenAlanine Aminotransferase (ALT/SGPT) 2018-03-06 05:39:00* Test Item Value Reference Range Interpretation Comments Alanine Aminotransferase (ALT/SGPT) (test code = 1742-6) 71 0-55 H [facility] ChildrenTotal Tmoicls2511-02-60 05:39:00* Test Item Value Reference Range Interpretation Comments Total Protein (test code = 2885-2) 7.0 6.5-8.1 [facility] ChildrenAlbumin2018-09-14 05:39:00* Test Item Value Reference Range Interpretation Comments Albumin (test code = 1751-7) 3.2 3.5-5.0 L [facility] ChildrenGlobulin2018-09-14 05:39:00* Test Item Value Reference Range Interpretation Comments Globulin (test code = 07316-4) 3.8 2.3-3.5 H [facility] ChildrenAlbumin/Globulin Aqrrt1961-61-62 05:39:00 * Test Item Value Reference Range Interpretation Comments Albumin/Globulin Ratio (test code = 1759-0) 0.8 0.8-2.0 [facility] ChildrenAlkaline Ozfqdsrerkn7690-50-68 05:39:00* Test Item Value Reference Range Interpretation Comments Alkaline Phosphatase (test code = 6768-6) 117 40-150 [facility] ChildrenTriglycerides Vlcde9151-62-33 19:07:00* Test Item Value Reference Range Interpretation Comments Triglycerides Level (test code = 2571-8) 170 0-149 [facility] ChildrenCholesterol Szqgm4146-81-98 19:07:00* Test Item Value Reference Range Interpretation Comments Cholesterol Level (test code = 2093-3) 195 0-199 Less than 200 mg/dL Low Eqkc375 - 239 mg/dL Borderline Nost248 m g/dl and greater High Risk [facility] for ChildrenLDL Cplgonmebfs8099-65-76 19:07:00* Test Item Value Reference Range Interpretation Comments LDL Cholesterol (test code = 2089-1) 107 60-130 [facility] for ChildrenHDL Llyfspuvten7815-77-15 19:07:00* Test Item Value Reference Range Interpretation Comments HDL Cholesterol (test code = 2085-9) 54 40-60 [facility] ChildrenCholesterol/HDL Hddvs9144-17-02 19:07:00 * Test Item Value Reference Range Interpretation Comments Cholesterol/HDL Ratio (test code = 9830-1) 3.6 3.0-3.6 [facility] for ChildrenCHEST 2 GNCWR2519-09-32 18:52:00 [facility] [address] [place] [address] Patient Name: NEVAEH ARENAS MR #: [id number] : 0 1955 Age/Sex: 62/F Req #: [id number] Adm Physician: RAJ MENDEZ MD Ordered by: RAJ MENDEZ MD Report #: [id number] Locatio n: IMCU Room/Bed: [facility] 176-1 Procedure: [id number] DX/ CHEST 2 VIEWS Exam Date: 03/05/18 [...]
--- OUTSIDE RECORDS SUMMARY | 2020-04-27 17:32 | XMS REPORT | Clinical Summary ---
Author Author [facility] Address Unknown Phone Unavailable Care Team Providers Care Lawn Service Manager Name Role Phone Bradley Garcia MD PCP [phone] Allergies No Known Active Allergies Medications End Date Status Medication Sig Dispensed Refills Start Date Active pantoprazole (PROTONIX) Take 40 mg by 0 40 MG EC tablet mouth daily. 05/26/2020 Active aspirin 81 mg chewable Chew 1 tablet 365 tablet 0 1 tablet (81 mg total) 0 daily for 30 days. 05/25/2020 Active atorvastatin (LIPITOR) 40 Take 1 tablet 90 tablet 0 mg tablet (40 mg total) 0 by mouth nightly for 30 days. 05/26/2020 Active isosorbide mononitrate Take 1 tablet 90 tablet 0 1 (IMDUR) 60 MG 24 hr (60 mg total) 0 tablet by mouth daily for 30 days. 05/26/2020 Active metoprolol succinate XL Take 1 tablet 90 tablet 0 (TOPROL-XL) 25 mg 24 hr (25 mg total) 0 tablet by mouth daily for 30 days. 04/25/2021 Active blood-glucose meter Use as 1 each 0 (glucose monitoring kit) instructed 0 kit Active metFORMIN (Glucophage) Take 1 tablet 90 tablet 0 1 500 mg tablet (500 mg 0 total) by mouth nightly. Start on 04-27-2020 04/25/2021 Active blood-glucose meter kit Check blood 1 each 0 sugars q. 0 a.m. Active blood sugar diagnostic Check blood 100 strip 1 strips (FreeStyle Test) sugars every 0 strip test strips morning 05/25/2020 Active losartan (Cozaar) 25 MG Take 1 tablet 90 tablet 0 tablet (25 mg total) 0 by mouth daily for 30 days. 04/25/2020 Discontinued (Stop Taking at Discharge) metoprolol tartrate Take 25 mg by 0 (LOPRESSOR) 25 mg tablet mouth daily. 04/25/2020 Discontinued (Stop Taking at Discharge) amLODIPine (NORVASC) 5 mg Take 5 mg by 0 tablet mouth daily. Active Problems Problem Noted Date Acute coronary syndrome 04/25/2020 Resolved Problems Problem Noted Date Resolved Date Abnormal stress test 04/21/2020 04/25/2020 Encounters Care Team Description Date Type Specialty Vince Delaney MD 04/24/2020 Anesthesia Procedural Cardiolo gy Event Vince Delaney MD Selective coronary angiography [91543 (C PT)] 04/24/2020 Surgery Procedural Cardiolo gy Rehrer, DO Ephraim Amezquita Ryan T., MD Acute coronary syndrome (HCC) (Primary D x); Abnormal stress test; Precordial pain; Essential hypertension 04/21/2020 [facility] Internal Ma dicine - Encounter 04/25/2020 after 04/19/2019 Immunizations Name Administration Dates Next Due FLUCELVAX QUAD PF 04/25/2020 Surgical History Surgery Date Site/Laterality Comments BLADDER SUSPENSION CARDIAC SURGERY "heart bridge" HYSTERECTOMY CHOLECYSTECTOMY CARDIAC CATHETERIZATION 04/24/2020 N/A Proced ure: Selective coronary angiography; Surgeon: Vince Delaney MD; Location: [facility] Executive Assistant To President Invasive Location; Service: Cardio vascular; Laterality: N/A; Medical History Medical History Date Comments Hypertension Pre-diabetes Social History Date Tobacco Use Types Packs/Day Years Used Never Smoker Smokeless Tobacco: Never Used Drinks/Week oz/Week Comments Alcohol Use occasionally Yes Sex Assigned at Date Recorded Not on file Last Filed Vital Signs Reading Time Taken Comments Vital Sign 110/53 04/25/2020 4:17 PM RELAY ENGINEER Blood Pressure 66 04/25/2020 4:17 PM RELAY ENGINEER Pulse 36.4 C (97.6 F) 04/25/2020 4:17 PM RELAY ENGINEER Temperature 20 04/25/2020 4:17 PM RELAY ENGINEER Respiratory Rate 95% 04/25/2020 4:17 PM RELAY ENGINEER Oxygen Saturation - - Inhaled Oxygen Concentration 94.1 kg (207 lb 6.4 oz) 04/24/2020 5:00 AM RELAY ENGINEER Weight 165.1 cm (5' 5") 04/21/2020 10:36 PM CDT Height 34.51 04/21/2020 10:36 PM CDT Body Mass Index Plan of Treatment Health Maintenance Due Date Last Done Comments CERVICAL CANCER SCREENING 1977 BREAST CANCER SCREENING 2006 COLONOSCOPY SCREENING 2006 SHINGLES VACCINES (#1) 2006 INFLUENZA VACCINE Completed 04/25/2020 Procedures Comments Procedure Name Priority Date/Time Associated Diag nosis POC GLUCOSE Routine 04/25/2020 5:08 PM RELAY ENGINEER POC GLUCOSE Routine 04/25/2020 11:47 AM RELAY ENGINEER POC GLUCOSE Routine 04/25/2020 7:31 AM RELAY ENGINEER POC GLUCOSE Routine 04/24/2020 6:31 PM RELAY ENGINEER POC GLUCOSE Routine 04/24/2020 2:11 PM RELAY ENGINEER CV SELECTIVE CORONARY Routine 04/24/2020 ANGIOGRAPHY 1:46 PM RELAY ENGINEER POC GLUCOSE Routine 04/24/2020 12:50 PM RELAY ENGINEER POC GLUCOSE Routine 04/24/2020 8:08 AM RELAY ENGINEER HEMOGLOBIN A1C Routine 04/24/2020 5:00 AM RELAY ENGINEER HC COMPLETE BLD COUNT Routine 04/24/2020 W/AUTO DIFF 5:00 AM RELAY ENGINEER ESTIMATED GFR Routine 04/24/2020 4:00 AM RELAY ENGINEER THYROID STIMULATING Routine 04/24/2020 HORMONE 4:00 AM RELAY ENGINEER LIPID PANEL Routine 04/24/2020 4:00 AM RELAY ENGINEER MAGNESIUM LEVEL Routine 04/24/2020 4:00 AM RELAY ENGINEER PHOSPHORUS LEVEL Routine 04/24/2020 4:00 AM RELAY ENGINEER BASIC METABOLIC PANEL Routine 04/24/2020 4:00 AM RELAY ENGINEER POC GLUCOSE Routine 04/23/2020 8:56 PM RELAY ENGINEER US CAROTID DUPLEX Today 04/23/2020 BILATERAL 2:46 PM RELAY ENGINEER TTE COMPLETE, W CONTRAST, Routine 04/23/2020 W DOPPLER (C8929) 10:30 AM RELAY ENGINEER LACTIC ACID LEVEL Routine 04/22/2020 3:00 AM CDT HEMOGLOBIN A1C Routine 04/22/2020 3:00 AM CDT HC COMPLETE BLD COUNT Routine 04/22/2020 W/AUTO DIFF 3:00 AM CDT TROPONIN Timed 04/22/2020 1:54 AM CDT LACTIC ACID LEVEL, SEPSIS Timed 04/22/2020 - NOW AND REPEAT 2X EVERY 1:54 AM CDT 3 HOURS TROPONIN Timed 04/21/2020 11:00 PM CDT LACTIC ACID LEVEL, SEPSIS Timed 04/21/2020 - NOW AND REPEAT 2X EVERY 11:00 PM CDT 3 HOURS XR CHEST 1 VW PORTABLE STAT 04/21/2020 8:50 PM CDT ECG ED PRELIMINARY Routine 04/21/2020 INTERPRETATION 8:32 PM CDT ESTIMATED GFR STAT 04/21/2020 8:17 PM CDT MAGNESIUM LEVEL STAT 04/21/2020 8:17 PM CDT COMPREHENSIVE METABOLIC STAT 04/21/2020 PANEL 8:17 PM CDT TROPONIN STAT 04/21/2020 8:17 PM CDT B NATRIURETIC PEPTIDE STAT 04/21/2020 8:17 PM CDT CREATINE KINASE, TOTAL STAT 04/21/2020 (CPK) 8:17 PM CDT LACTIC ACID LEVEL, SEPSIS STAT 04/21/2020 - NOW AND REPEAT 2X EVERY 8:17 PM CDT 3 HOURS PHOSPHORUS LEVEL STAT 04/21/2020 8:17 PM CDT PARTIAL THROMBOPLASTIN STAT 04/21/2020 TIME (PTT) 8:17 PM CDT PROTHROMBIN TIME WITH INR STAT 04/21/2020 8:17 PM CDT HC COMPLETE BLD COUNT STAT 04/21/2020 W/AUTO DIFF 8:17 PM CDT COVID-19 QUALITATIVE PCR STAT 04/21/2020 8:17 PM CDT ECG 12-LEAD STAT 04/21/2020 7:50 PM CDT after 04/19/2019 Results * POC glucose (04/25/2020 5:08 PM RELAY ENGINEER) Only the most recent of 8 results within the time period is included. POC glucose 156 (H) 65 - 99 mg/dL [facility] Comment: [employer] Specialist Name: [facility] Device ID: [id number] Chartable: [facility] Notified RN Specimen Blood Performing Organization Address City/[facility] P garland Number [facility] DEPARTMENT OF [address] [place] [address] PATHOLOGY AND GENOMIC MEDICINE [facility] [employer] [address] [place] [address] * slab off mill tender procedure (04/24/2020 1:46 PM RELAY ENGINEER) Specimen Narrative Performed At [facility] Procedure Details: The patient was brought to the cardiac catheterization laboratory in a fasting state. Informed consent was obt ained prior to procedure. Groin was prepped and draped in the usual sterile fashion. Moderate sedation was administered with physician supervision of patient consciousness, respiration, Oxygen satu ration and CO2 monitoring, beginning at 1319 ( time) f or a total period of 26 minutes. Skin was infiltrated with 1% lidocaine for local anesthesia. Arterial access was obtained using modified Seld gerardo technique. 5Fr. sheath was inserted into the right common femoral artery. Selective coronary angiogram was then performed in a stand sis fashion using FL4 and WR catheters. The patient tolerated the procedure well and there were no immediate complications. Findings: LM: Patent LAD: Patent, no significant angiographi c disease LCx: Patent, no significant angiographi c disease RCA: Patent, no significant angiographi c disease Right Dominant Circulation Performing Organization Address [facility] P garland Number [facility] [address] * CBC with platelet and differential (04/24/2020 5:00 AM RELAY ENGINEER) Only the most recent of 3 results within the time period is included. WBC 7.05 4.50 - 11.00 k/uL [facility] RBC 4.12 (L) 4.20 - 5.50 m/uL [facility] HGB 12.5 12.0 - 16.0 g/dL [facility] HCT 37.5 37.0 - 47.0 % [facility] MCV 91.0 82.0 - 100.0 fL [facility] MCH 30.3 27.0 - 34.0 pg [facility] MCHC 33.3 31.0 - 37.0 g/dL [facility] RDW - SD 44.6 37.0 - 55.0 fL [facility] MPV 11.8 8.8 - 13.2 fL [facility] Platelet count 182 150 - 400 k/uL [facility] Nucleated RBC 0.00 /100 WBC [facility] Neutrophils 45.3 39.0 - 69.0 % [facility] Lymphocytes 43.0 25.0 - 45.0 % [facility] Monocytes 8.1 0.0 - 10.0 % [facility] Eosinophils 2.7 0.0 - 5.0 % [facility] Basophils 0.6 0.0 - 1.0 % [facility] Immature 0.3Comment: "Immature 0.0 - 1.0 % [facility] granulocytes granulocytes" (promyelocytes, METHOD IST myelocytes, metamyelocytes) HOSPITAL Specimen Plasma Performing Organization Address [facility]/ZIP [facility] P garland Number [facility] DEPARTMENT OF [address] [place] [address] PATHOLOGY AND GENOMIC MEDICINE [address] * Hemoglobin A1c (04/24/2020 5:00 AM RELAY ENGINEER) Only the most recent of 2 results within the time period is included. Hemoglobin A1C 7.6 (H) 4.0 - 5.6 % [facility] Comment: [facility] HbA1c cutoffs for diagnosing HOSPITAL diabetes: 4.0% - 5.6% = normal 5.7% - 6.4% = increased risk for diabetes (prediabetes)9 >=6.5% = diabetes9 Goals for glycemic control (ADA 2016) < 7.0% Target for non adults with diabetes. More or less stringent targets may be appropriate for individual patients. <7.5% Target for Children and adolescents with type 1 diabetes. Specimen Narrative Performed At [facility] added and read back to Mitra Guardado in A8 04/24/20 20 07:43 LMID. [facility] DEPARTMENT OF PATHOLOGY AND GENOMIC MEDICINE Performing Organization Address City/[facility]/[place] [address] * Estimated GFR (04/24/2020 4:00 AM RELAY ENGINEER) Only the most recent of 2 results within the time period is included. Pathologist [facility] Estimated GFR >=90 mL/min/1.73 m2 [facility] Comment: [facility] Interpretation G1 >=90 Normal or high G2 60-89 Mildly decreased G3a 45-59 Mildly to moderately decreased G3b 30-44 Moderately to severely decreased G4 15-29 Severely decreased G5 <15 Kidney failure The eGFR was calculated using the Chronic Kidney Disease Epidemiology Collaboration (CKD-EPI) equation. Interpretation is based on recommendations of the National Kidney Foundation-Kidney Disease Outcomes Quality Initiative (NKF-KDOQI) published in 2014. Specimen Plasma Performing Organization Address City/[facility]/[place] [address] [address] * Thyroid stimulating hormone (04/24/2020 4:00 AM RELAY ENGINEER) TSH 3.30 0.27 - 4.20 uIU/mL [facility] Specimen Plasma Performing Organization Address City/[facility]/ZIP Code P garland Number [address] AND [address] * Phosphorus level (04/24/2020 4:00 AM RELAY ENGINEER) Only the most recent of 2 results within the time period is included. Phosphorus 3.4 2.4 - 4.5 mg/dL [facility] Specimen Plasma Performing Organization Address [facility] P garland Number [facility] DEPARTMENT OF [address] [place] [address] PATHOLOGY [facility] [address] * Magnesium level (04/24/2020 4:00 AM RELAY ENGINEER) Only the most recent of 2 results within the time period is included. Magnesium 1.9 1.6 - 2.4 mg/dL [facility] Specimen Plasma Performing Organization Address [facility] [place] [address] PATHOLOGY AND GENOMIC MEDICINE [address] * Lipid panel (04/24/2020 4:00 AM RELAY ENGINEER) Cholesterol 147 <200 mg/dL [facility] Triglycerides 116 <150 mg/dL [facility] HDL cholesterol 48 >40 mg/dL [facility] LDL cholesterol 88Comment: Result obtained by <100 mg/dL [facility] direct LDL measurement [facility] Lipid panel [facility] interpretation Comment: [employer] Total Cholesterol (mg/dL) [facility] <200 Desirable 200-239 Borderline-high >=240 High Triglycerides (mg/dL) <150 Normal 150-199 Borderline-high 200-499 High >=500 Very high HDL Cholesterol (mg/dL) <40 Low (male) <40 Low (female) LDL Cholesterol (mg/dL) <100 Optimal 100-129 Near or above optimal 130-159 Borderline-high 160-189 High >=190 Very high Risk Catergories that modify LDL goals. Risk Catergories LDL goal (mg/dL) CHD and CHD risk equivalent <100 (10-year risk >20%) Multiple (2+) risk factors <130 (10-year risk =<20%) 0-1 risk factors <160 (<10-year risk) Defining levels of lipids in metabolic syndrome Triglycerides >=150 mg/dL HDL Cholesterol Men <40 mg/dL Women <40 mg/dL Non-HDL cholesterol is a second target for therapy in persons with high triglycerides (>=200 mg/dL) Specimen Plasma Performing Organization Address [facility] [place] [address] PATHOLOGY [facility] [place] [id number] * Basic metabolic panel (04/24/2020 4:00 AM RELAY ENGINEER) Sodium 140 135 - 148 mEq/L [facility] Potassium 4.1 3.5 - 5.0 mEq/L [facility] Chloride 104 98 - 112 mEq/L [facility] CO2 23 (L) 24 - 31 mEq/L [facility] Anion gap 13@ANIO 7 - 15 mEq/L [facility] BUN 16 8 - 23 mg/dL [facility] Creatinine 0.60 0.50 - 0.90 mg/dL [facility] Glucose 156 (H) 65 - 99 mg/dL [facility] Calcium 8.8 8.8 - 10.2 mg/dL [facility] Specimen Plasma Performing Organization Address City/State/ZIP Code P garland Number [facility] DEPARTMENT OF [address] [place] [address] PATHOLOGY AND GENOMIC MEDICINE [address] * Us carotid duplex (04/23/2020 2:46 PM RELAY ENGINEER) Specimen Narrative Performed At [facility] Carotid A rtery Duplex Report [address] [place] [address], [facility] [address], [place] [address] For senior quality analyst purposes, the cat egorization of the degree of the stenosis of this exam is based on criteria descr ibed in the IAC carotid stenosis grading white paper( www.intersocietal.org/Vasc ular) and Jake Mooney., Nick CZackaryB., et al. Carotid artery stenosis: tran-scale and Doppler US diagnosis--Society of Radiologists in Ultrasound Consensus Conference. Radiol ogy. 2003 Nov; 229(2):340-6. Pat.Name: NEVAEH ARENAS Pat.ID: [id number] .Date: 04/23/2020 Refer.MD: ZANE VOSS MD Exam Time: 2:31:00 PM Study Type:Carotid Height: 65in Weight: 206lb BSA: 2 m2 Age: 1 1955,64Y Sex: FEMALE Sonogrphr: Bella Diamond RVT Pat. Stat.:Inpatient Room: [address] Tape Vol: JJ, CPT - 4: 49557 Echo Event ID:[id number] Order ID: [id number] Reason for Study:Dizziness. PMH of HTN, CAD. Procedures: Colorflow, Grayscale/2D, Pu lsed wave Doppler Race: C SUMMARY: PHYSICAL ASSESSMENT Blood Pulses Carotid Pressure Carotid Temporal Br uit Right ___ + + 0 Left ___ + + 0 CAROTID ARTERY SCAN RIGHT: There is smooth intimal lining i n the common carotid ,bulb, internal and external carotid artery. Colorflow is normal. LEFT: There is minimal intimal thickeni ng in the common carotid artery. There is calcified plaque noted in the bulb extending into the proximal internal carotid artery.The ex ternal carotid artery is clear. Colorflow is normal. PRELIMINARY FINDINGS 1. <50% stenosis of left internal carot id artery. PHYSICIAN INTERPRETATION Bilateral carotid duplex examination de monstrated atherosclerotic plaques in the left bulb. Less than 50% stenosis in the left inte rnal carotid artery. Right side is normal. FINDINGS: Carotid Findings: Right Left Verteb.Flw Antegrade Antegrade Subclavian Triphasic Triphasic MEASUREMENTS: DOPPLER Right CCA Dist CCA Dist PSV 94.3 cm/s CCA Dist EDV 23.4 cm/s Right CCA Mid CCA Mid PSV 110 cm/s CCA Mid EDV 23.4 cm/s Right CCA Prox CCA Prox PSV 122 cm/s CCA Prox EDV 17.5 cm/s Right ECA Prox ECA Prox PSV 106 cm/s ECA Prox EDV 13.6 cm/s Right ICA Dist ICA Dist PSV 90.3 cm/s ICA Dist EDV 27.3 cm/s Right ICA Mid ICA Mid PSV 60.3 cm/s ICA Mid EDV 21.9 cm/s Right ICA Prox ICA Prox PSV 58.1 cm/s ICA Prox EDV 16.4 cm/s Right Vertebral Vertebral PSV 69.3 cm/s Vertebral EDV 22.5 cm/s Right Subclavian Subclavian PSV 134 cm/s Left CCA Dist CCA Dist PSV 69.8 cm/s CCA Dist EDV 18 cm/s Left CCA Mid CCA Mid PSV 108 cm/s CCA Mid EDV 25.4 cm/s Left CCA Prox CCA Prox PSV 102 cm/s CCA Prox EDV 19.5 cm/s Left ECA Prox ECA Prox PSV 77.5 cm/s ECA Prox EDV 14.1 cm/s Left ICA Dist ICA Dist PSV 79.5 cm/s ICA Dist EDV 21.6 cm/s Left ICA Mid ICA Mid PSV 80.1 cm/s ICA Mid EDV 27 cm/s Left Vertebral Vertebral PSV 39.7 cm/s Vertebral EDV 13.2 cm/s Left Subclavian Subclavian PSV 167 cm/s Left ICA Prox ICA Prox PSV 56.6 cm/s ICA Prox EDV 15.6 cm/s Right ICA/CCA Ratio ICA/CCA PSV 0.528 Left ICA/CCA Ratio ICA/CCA PSV 0.524 Signed 04/23/2020 05:00 PM Mika Restrepo MD, RPVI Procedure Note Interface, Radiology Results In - 04/23/2020 5:01 PM [facility] Vascular Ultrasound Laboratory Carotid Artery Duplex Report [address] [place] [address] For senior quality analyst purposes, the categorization of the degree of the stenosis of this exam is based on criteria described in the IAC carotid stenosis grading white paper( www.intersocietal.org/Vascular) and Jake Mooney., Tyrell Romero., et al. Carotid artery stenosis: tran-scale and Doppler US diagnosis--Society of Radiologists in Ultrasound Consensus Conference. Radiology. 2003 Nov; 229(2):340-6. Pat.Name: NEVAEH ARENAS Pat.ID: [id number] .Date: 04/23/2020 Refer.MD: ZANE VOSS MD Exam Time: 2:31:00 PM Study Type:Carotid Height: 65in Weight: 206lb BSA: 2 m2 Age: 1 1955,64Y Sex: FEMALE Sonogrphr: Bella Diamond RVT Pat. Stat.:Inpatient Room: [address] Vol: JJ, [facility] - 4: [id number] Echo Event ID:[id number] Order ID: [id number] Reason for Study:Dizziness. PMH of HTN, CAD. Procedures: Colorflow, Grayscale/2D, Pulsed wave Doppler Race: C SUMMARY: PHYSICAL ASSESSMENT Blood Pulses Carotid Pressure Carotid Temporal Bruit Right ___ + + 0 Left ___ + + 0 CAROTID ARTERY SCAN RIGHT: There is smooth intimal lining in the common carotid ,bulb, internal and external carotid artery. Colorflow is normal. LEFT: There is minimal intimal thickening in the common carotid artery. There is calcified plaque noted in the bulb extending into the proximal internal carotid artery.The external carotid artery is clear. Colorflow is normal. PRELIMINARY FINDINGS 1. <50% stenosis of left internal caroti d artery. PHYSICIAN INTERPRETATION Bilateral carotid duplex examination demonstrated atherosclerotic plaques in the left bulb. Less than 50% stenosis in the left internal carotid artery. Right side is normal. FINDINGS: Carotid Findings: Right Left Verteb.Flw Antegrade Antegrade Subclavian Triphasic Triphasic MEASUREMENTS: DOPPLER Right CCA Dist CCA Dist PSV 94.3 cm/s CCA Dist EDV 23.4 cm/s Right CCA Mid CCA Mid PSV 110 cm/s CCA Mid EDV 23.4 cm/s Right CCA Prox CCA Prox PSV 122 cm/s CCA Prox EDV 17.5 cm/s Right ECA Prox ECA Prox PSV 106 cm/s ECA Prox EDV 13.6 cm/s Right ICA Dist ICA Dist PSV 90.3 cm/s ICA Dist EDV 27.3 cm/s Right ICA Mid ICA Mid PSV 60.3 cm/s ICA Mid EDV 21.9 cm/s Right ICA Prox ICA Prox PSV 58.1 cm/s ICA Prox EDV 16.4 cm/s Right Vertebral Vertebral PSV 69.3 cm/s Vertebral EDV 22.5 cm/s Right Subclavian Subclavian PSV 134 cm/s Left CCA Dist CCA Dist PSV 69.8 cm/s CCA Dist EDV 18 cm/s Left CCA Mid CCA Mid PSV 108 cm/s CCA Mid EDV 25.4 cm/s Left CCA Prox CCA Prox PSV 102 cm/s CCA Prox EDV 19.5 cm/s Left ECA Prox ECA Prox PSV 77.5 cm/s ECA Prox EDV 14.1 cm/s Left ICA Dist ICA Dist PSV 79.5 cm/s ICA Dist EDV 21.6 cm/s Left ICA Mid ICA Mid PSV 80.1 cm/s ICA Mid EDV 27 cm/s Left Vertebral Vertebral PSV 39.7 cm/s Vertebral EDV 13.2 cm/s Left Subclavian Subclavian PSV 167 cm/s Left ICA Prox ICA Prox PSV 56.6 cm/s ICA Prox EDV 15.6 cm/s Right ICA/CCA Ratio ICA/CCA PSV 0.528 Left ICA/CCA Ratio ICA/CCA PSV 0.524 Signed 04/23/2020 05:00 PM Mika Restrepo MD, RPVI Performing Organization Address City/State/ZIP Code [facility] Number [facility] [address] [place] [address] * Transthoracic Echocardiogram Complete, (w Contrast, Strain and 3D if needed) (04/23/2020 10:30 AM RELAY ENGINEER) Specimen Narrative Performed At [facility] Echo cardiography Report [address] [facility], [place] [address], [place] [address] Pat.Name: NEVAEH ARENAS.ID: [id number] .Date: 04/23/2020 Refer.MD: JH ZAMUDIO DO Exam Time: 10:51:00 AM Study Type:Routine Echo Height: 65in Weight: 205.57lb BSA: 2 m2 Age: 1 1955,64Y Sex: FEMALE BP: 127/74 HR: 64 bpm Sonogrphr: jacinto Pizarro Stat.:Inpatient Room: A831 Study Status:Final Echo Event ID:[id number] Order ID: [id number] Reason for Study:Hypertension - Initial eval of suspected hypertensive heart disease History / Clinical:Hypertension Procedures: 2D Echo, Colorflow Doppler, Portable, Intravenous Definity Contrast Race: C SUMMARY: Findings consistent with apical HCM. Co nsider CMR for further evaluation of LV hypertrophy and presen ce/extent of scar. FINDINGS: LV: LV size is normal. Apical hypertrophy is present. LV EF is hyperdynamic. Overall wal l motion is hyperdynamic. Estimated EF is >70%. RV: RV size is normal. RV syst olic function is normal. LA: LA volume is difficult to assess. RA: RA size is normal. AO: Aortic root diameter is no rmal. ROS: No pericardial effusion. SVn: Normal collapse of IVC dur ing inspiration is consistent with normal RA pressure. AV: No structural AV abnormali ties noted. MV: No structural MV abnormali ties noted. PV: No structural PV abnormali ties noted. TV: No structural TV abnormali ties noted. Mcneal: LV relaxation is impaired. Other: Insufficient TR jet to tello mate PA systolic pressure. MEASUREMENTS: 2D Parasternal Long Kerrick Ao An 2.2 cm LVPWd 0.96 cm Ao Rtd 3.1 cm Index 1.6 cm/m2 LA Ds 3.6 cm IVSd 0.98 cm RWT 0.4 LVIDd 4.8 cm Index 2.4 cm/m2 LV Mass 162 g (87-12 9)* LVIDs 2.7 cm LVM Index 81 g/m LV%fs 43 % LVOT 1.9 cm LVOT LVOT Area 2.8 cm DOPPLER LVOT For Flow LVOT TVI 35 cm LVOTpkPG 11 mmHg LVOTpkVel 164 cm/s LVOTmnPG 4.9 mmHg LVOT LVOT SV 99 ml SVi 50 ml/m Signed 04/23/2020 01:27 PM Enrike Pena M.D. Procedure Note Interface, Radiology Results In - 04/23/2020 1:30 PM [facility] Echocardiography Report [address] [place] [address] Pat.Name: NEVAEH ARENAS Annabella.ID: [id number] .Date: 04/23/2020 Refer.MD: JH ZAMUDIO DO Exam Time: 10:51:00 AM Study Type:Routine Echo Height: 65in Weight: 205.57lb BSA: 2 m2 Age: 1 1955,64Y Sex: FEMALE BP: 127/74 HR: 64 bpm Sonogrphr: jacinto Pizarro. Stat.:Inpatient Room: [facility] Study Status:Final Echo Event ID:[id number] Order ID: [id number] Reason for Study:Hypertension - Initial eval of suspected hypertensive heart disease History / Clinical:Hypertension Procedures: 2D Echo, Colorflow Doppler, Portable, Intravenous Definity Contrast Race: C SUMMARY: Findings consistent with apical HCM. Consider CMR for further evaluation of LV hypertrophy and presence/extent of scar. FINDINGS: LV: LV size is normal. Apical hypertrophy is present. LV EF is hyperdynamic. Overall wall motion is hyperdynamic. Estimated EF is >70%. RV: RV size is normal. RV systolic function is normal. LA: LA volume is difficult to assess. RA: RA size is normal. AO: Aortic root diameter is normal. ROS: No pericardial effusion. SVn: Normal collapse of IVC during inspiration is consistent with normal RA pressure. AV: No structural AV abnormalities noted. MV: No structural MV abnormalities noted. PV: No structural PV abnormalities noted. TV: No structural TV abnormalities noted. Mcneal: LV relaxation is impaired. Other: Insufficient TR jet to estimate PA systolic pressure. MEASUREMENTS: 2D Parasternal Long Kerrick Ao An 2.2 cm LVPWd 0.96 cm Ao Rtd 3.1 cm Index 1.6 cm/m2 LA Ds 3.6 cm IVSd 0.98 cm RWT 0.4 LVIDd 4.8 cm Index 2.4 cm/m2 LV Mass 162 g (87-129)* LVIDs 2.7 cm LVM Index 81 g/m LV%fs 43 % LVOT 1.9 cm LVOT LVOT Area 2.8 cm DOPPLER LVOT For Flow LVOT TVI 35 cm LVOTpkPG 11 mmHg LVOTpkVel 164 cm/s LVOTmnPG 4.9 mmHg LVOT LVOT SV 99 ml SVi 50 ml/m Signed 04/23/2020 01:27 PM Enrike Pena M.D. Performing Organization Address City/State/ZIP Code [facility] [address] [place] [address] * Lactic acid level (04/22/2020 3:00 AM CDT) Lactic acid 2.3 (H) 0.5 - 2.2 mmol/L [facility] Specimen Blood Performing Organization Address City/[facility]/ZIP Code P garland Number [facility] DEPARTMENT OF [address] [place] [address] PATHOLOGY AND GENOMIC MEDICINE [address] * Lactic acid level, SEPSIS - Now and repeat 2x every 3 hours (04/22/2020 1:54 AM CDT) Only the most recent of 3 results within the time period is included. Lactic acid 2.7 (H) 0.5 - 2.2 mmol/L [facility] Specimen Plasma Performing Organization Address [facility]/RUST Code P gar[place] Number [facility] DEPARTMENT OF [address] [place] [address] PATHOLOGY AND GENOMIC MEDICINE [address] * Troponin (04/22/2020 1:54 AM CDT) Only the most recent of 3 results within the time period is included. Troponin 0.022 0.000 - 0.040 ng/mL [facility] Comment: [facility] In patients suspected of HOSPITAL having a myocardial infarction, along with all other appropriate clinical measures and actions including ECG and other diagnostics as appropriate, measure Ultra TnI at 0 hrs and at 3 hrs. Myocardial infarction VERY LIKELY The 0 hr TnI level is > 0.10 ng/mL Myocardial infarction LIKELY The 0 hr TnI level is > 0.04 ng/mL and 3 hr level is increased or decreased by at least 0.020 ng/mL Myocardial infarction VERY UNLIKELY Both the 0 hr and 3 hr TnI levels <= 0.04 ng/mL(within normal limits) OR 0 hr is > 0.04 ng/mL and 3 hr is increased OR decreased by less than 0.020 ng/mL Specimen Plasma Performing Organization Address City/[facility]/RUST Code P gar[place] Number [facility] DEPARTMENT OF [address] [place] [address] PATHOLOGY AND GENOMIC MEDICINE [address] * XR Chest 1 Vw Portable (04/21/2020 8:50 PM CDT) Specimen Narrative Performed At EXAMINATION: XR CHEST 1 VW PORTABLE RADIANT CLINICAL HISTORY: SOB COMPARISON: 02/26/2018. FINDINGS: One view of the chest demonstrates no rmal cardiomediastinal silhouette. Pulmonary vasculature is within normal limits. No consolidation or pleural effusion is seen. There is no evidence of pneumothorax. Regional osseous structures is unremark able. IMPRESSION: No radiographic evidence of acute cardi opulmonary process or active disease of the chest. [id number] Procedure Note Interface, Radiology Results Incoming - 04/21/2020 8:58 PM CDT EXAMINATION: XR CHEST 1 VW PORTABLE CLINICAL HISTORY: SOB COMPARISON: 02/26/2018. FINDINGS: One view of the chest demonstrates normal cardiomediastinal silhouette. Pulmonary vasculature is within normal limits. No consolidation or pleural effusion is seen. There is no evidence of pneumothorax. Regional osseous structures is unremarkable. IMPRESSION: No radiographic evidence of acute cardiopulmonary process or active disease of the chest. [id number] Performing Organization Address [facility] [place] [address] * ECG ED Preliminary Interpretation - Not an Order (04/21/2020 8:32 PM CDT) Narrative Performed At Jh Zamudio DO 0 7:38 PM ECG ED Preliminary Interpretation - Not an Order Performed by: Jh Zamudio DO Authorized by: Jh Zamudio DO ECG reviewed by ED Physician in the abs ence of a wood scaler: yes Interpretation: Interpretation: abnormal Rate: ECG rate: 61 ECG rate assessment: normal Rhythm: Rhythm: sinus rhythm QRS: QRS axis: Normal QRS intervals: Normal Conduction: Conduction: normal ST segments: ST segments: Non-specific T waves: T waves: non-specific * COVID-19 qualitative PCR (04/21/2020 8:17 PM CDT) Interpretation Negative results do not MEJIA preclude 2019-nCoV infection [facility] and should not be used as the HOSPITAL sole basis for treatment or other patient management decisions. Negative results must be combined with clinical observations, patient history, and epidemiological information. COVID-19 Not-Detected Not-Detected [facility] qualitative PCR [facility] result HOSPITAL COVID-19 See link below for PDF Lab [facility] qualitative PCR ReportComment: Case Number: [facility] [id number] [facility]OSPITAL Specimen Nasopharyngeal swab Performing Organization Address [facility] P garland Number [facility] [place] [address] PATHOLOG[facility] AND [facility] [address] * Partial thromboplastin time, activated (04/21/2020 8:17 PM CDT) Pathologist [facility] PTT 30.8 23.0 - 36.0 sec [facility] Comment: [facility] PTT therapeutic range for HOSPITAL unfractionated heparin is 61.0-112.0 seconds which corresponds to Anti-Xa 0.3-0.7 U/ml. Specimen Blood Performing Organization Address [facility] P garland Number [facility] [place] [address] PATHOLOGY AND GENOMIC MEDICINE [address] * Prothrombin time with INR (04/21/2020 8:17 PM CDT) Prothrombin 14.3 11.5 - 14.5 sec [facility] INR 1.1 [facility] Comment: [facility] The International Normalized HOSPITAL Ratio (INR) is a therapeutic monitoring tool for patients who are stable on oral anticoagulant therapy. An INR of 2.0-3.0 is suggested for deep vein thrombosis/pulmonary embolism. Specimen Blood Performing Organization Address City/[facility]/ZIP Code P gar[place] Number [facility] DEPARTMENT OF [address] [place] [address] PATHOLOGY AND GENOMIC MEDICINE [address] * B natriuretic peptide (04/21/2020 8:17 PM CDT) BNP 218 (H) 0 - 100 pg/mL [facility] Specimen Blood Performing Organization Address City/State/[facility] P garland Number [facility] [place] [address] PATHOLOGY AND GENOMIC MEDICINE [address] * Creatine kinase, total (CPK) (04/21/2020 8:17 PM CDT) Creatine kinase 56 26 - 192 U/L [facility] Specimen Plasma Performing Organization Address [facility] P garland Number [facility] DEPARTMENT OF [address] [place] [address] PATHOLOGY AND GENOMIC MEDICINE [address] * Comprehensive metabolic panel (04/21/2020 8:17 PM CDT) Sodium 139 135 - 148 mEq/L [facility] Potassium 4.1 3.5 - 5.0 mEq/L [facility] Chloride 101 98 - 112 mEq/L [facility] CO2 24 24 - 31 mEq/L [facility] Anion gap 14@ANIO 7 - 15 mEq/L [facility] BUN 16 8 - 23 mg/dL [facility] Creatinine 0.62 0.50 - 0.90 mg/dL [facility] Glucose 166 (H) 65 - 99 mg/dL [facility] Calcium 9.4 8.8 - 10.2 mg/dL [facility] Protein 8.2 6.3 - 8.3 g/dL [facility] Comment: [facility] [place] 4.6-7.0 g/dL 1 week 4.4-7.6 g/dL 7 months-1year 5.1-7.3 g/dL 1-2 years 5.6-7.5 g/dL >3 years 6.0-8.0 g/dL 18-150 6.3-8.3 g/dL Albumin 3.3 (L) 3.5 - 5.0 g/dL [facility] A/G ratio 0.7 0.7 - 3.8 [facility] Alkaline 164 (H) 35 - 104 U/L [facility] phosphatase [facility] AST 77 (H) 10 - 35 U/L [facility] ALT 77 (H) 5 - 50 U/L [facility] Total bilirubin 0.4 0.0 - 1.2 mg/dL [facility] Specimen Plasma Performing Organization Address City/[facility] P gar[place] Number [facility] DEPARTMENT OF [address] [place] [address] PATHOLOGY AND GENOMIC MEDICINE [address] [address] HOSPITAL * ECG 12 lead (04/21/2020 7:50 PM CDT) Ventricular 61 [facility] rate Atrial rate 61 [facility] UT interval 162 [facility] QRSD interval 94 [facility] QT interval 400 [facility] QTC interval 402 [facility] P axis 1 23 [facility] QRS axis 1 42 [facility] T wave axis 108 [facility] EKG impression Normal sinus rhythm-ST & T [facility] wave abnormality, consider lateral ischemia-Abnormal ECG-In automated comparison with ECG of 26-FEB-2018 17:59,-No significant change was found- Specimen Narrative Performed At This result has an attachment that is n ot available. 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
== END 2020-04-21 18:14 | disposition home or self-care (01) ==
LOC: FSED 14:53 → ERHOLD 15:28 → MED/SURG 17:46
PROVIDERS: ADMIT Internal Medicine; ATTEND Internal Medicine
DX: R07.2 Precordial pain (principal); I10 Essential (primary) hypertension; K21.9 Gastro-esophageal reflux disease without esophagitis; F41.9 Anxiety disorder, unspecified; F32.9 Major depressive disorder, single episode, unspecified; E03.9 Hypothyroidism, unspecified; R00.1 Bradycardia, unspecified; E66.01 Morbid (severe) obesity due to excess calories; E11.9 Type 2 diabetes mellitus without complications; E78.00 Pure hypercholesterolemia, unspecified; I83.90 Asymptomatic varicose veins of unspecified lower extremity; Z82.49 Family history of ischemic heart disease and other diseases of the circulatory system; Q24.5 Malformation of coronary vessels; R94.39 Abnormal result of other cardiovascular function study; Z11.59 Encounter for screening for other viral diseases; Z68.34 Body mass index [BMI] 34.0-34.9, adult; Z79.82 Long term (current) use of aspirin
CPT/HCPCS: 36415 ×3; 71045; 71260; 78452; 80053 ×3; 80061; 82550 ×2; 82553 ×2; 83036; 84443 ×2; 84484 ×2; 85025 ×2; 93005 ×2; 93017; 93306; 93970; 99284; A9502; G0378 ×3; J7030; Q9967; S0164; U0002